=== PATIENT | male | born 1950 | race Caucasian/White ===

== ENCOUNTER 2018-11-27 11:00 | Outpatient (RCR) | payer MEDICARE, OTHER, SELFPAY ==
--- NOTE | 2018-07-14 16:00 | PT.OIE ---
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) Provider Visit Care Team Role Provider Type Morena Burnham MD Primary Care Provider Non-Staff Specialty: Medical Address: [facility] [place], [address] Email: Rigo Chavez MD Attending Provider Non-Staff Specialty: Neurology Address: [address] [place], [address] Email: Physical Therapy Initial Evaluation PT-OP-A Visit Information Start: 07/14/18 12:41 Freq: Status: Active Protocol: Document 07/14/18 09:30 AMB (Rec: 07/18/18 07:18 AMB [email or web address]) Out-Patient Physical Therapy Visit Information Visit Information Visit Type Initial Evaluation Visit Start Time 09:30 Visit Stop Time 10:15 Total Visit Minutes 45 PT-OP-B Current Condition Start: 07/14/18 12:41 Freq: Status: Active Protocol: Document 07/14/18 09:30 AMB (Rec: 07/19/18 07:26 AMB [email or web address]) Current Condition History of Current Condition Onset Date May 2018 Current Complaints Difficulty with gait and balance secondary to Parkinson 's disease History of Current Condition Aster was recently diagnosed with Parkinson's disease, but has noticed some symptoms for years beginning in 2009. He had a good improvement of symptoms with new medication. He is hoping to continue his active lifestyle, but has noticed that he can feel unsteady especially with backing up and turning, and that his left foot tends to drag, especially when he is walking longer distances. He denies any recent falls. Treatment Goals Patient/Caregiver Goals Improve balance/ walking Prior Functional Status Baseline Function- ADL's Independent Baseline Function- Mobility Independent Current Functional Impairments (Reported) Functional Limitations- ADL's Tremor is worse L>R, can limit fine motor activity Functional Limitations- Mobility/Gait Pt notes left leg drags, off balance with turning Personal Factors Other Personal Factors That May Effect Neck and back pain Therapy/Recovery PT-OP-D Balance Start: 07/14/18 12:41 Freq: Status: Active Protocol: Document 07/14/18 09:30 AMB (Rec: 07/19/18 07:39 AMB [email or web address]) Balance Tests Romberg Romberg 30 seconds eyes open, unable eyes closed Single Limb Standing Single Limb- Right 1-2 seconds Single Limb- Left 1 second PT-OP-E Functional Tests Start: 07/14/18 12:41 Freq: Status: Active Protocol: Document 07/14/18 09:30 AMB (Rec: 07/19/18 07:36 AMB [email or web address]) Functional Tests Dynamic Gait Index (DGI) Score 15 DGI Impairment Rating 20 to <40% Impaired (Score 15- 19) PT-OP-G Mobility & Gait Start: 07/14/18 12:41 Freq: Status: Active Protocol: Document 07/14/18 09:30 AMB (Rec: 07/19/18 07:36 AMB [email or web address]) OP Gait Assessment Comments Gait Comments Pt ambulates with reduced arm swing on the left. No scuffing of left foot seen in the clinic with short walks. Reduced head rotation when asked for horizontal head turns. PT-OP-H Neuro Start: 07/14/18 12:41 Freq: Status: Active Protocol: Document 07/14/18 09:30 AMB (Rec: 07/19/18 07:36 AMB [email or web address]) Coordination Evaluation Upper Extremity Tests Left Pronation/Supination Test Minimal Impairment PT-OP-J Posture/Palpation/Skin Start: 07/14/18 12:41 Freq: Status: Active Protocol: Document 07/14/18 09:30 AMB (Rec: 07/19/18 07:36 AMB [email or web address]) Posture Evaluation Comments Posture Comments Slightly forward head, rounded shoulders PT-OP-K Range of Motion Start: 07/14/18 12:41 Freq: Status: Active Protocol: Document 07/14/18 09:30 AMB (Rec: 07/19/18 07:36 AMB [email or web address]) Cervical Spine Range of Motion Cervical Spine Active Degrees Testing Position Sitting Rotation Left 60 Rotation Right 60 Shoulder Goniometric Range of Motion Shoulder Measured in Degrees Right Active Flexion 150 Left Active Flexion 150 PT-OP-M Strength Start: 07/14/18 12:41 Freq: Status: Active Protocol: Document 07/14/18 09:30 AMB (Rec: 07/19/18 07:41 AMB [email or web address]) Hip Strength Hip Manual Muscle Testing Right Flexion (L2) 5 Normal Abduction 5 Normal Left Flexion (L2) 5 Normal Abduction 5 Normal Knee Strength Knee Manual Muscle Testing Right Flexion (S2) 5 Normal Extension (L3) 5 Normal Left Flexion (S2) 5 Normal Extension (L3) 5 Normal Ankle/Foot Strength Ankle and Foot Manual Muscle Testing Right Dorsiflexion (L4) 4+ Good+ Left Dorsiflexion (L4) 4+ Good+ PT-OP-T Assessment and Plan Start: 07/14/18 12:41 Freq: Status: Active Protocol: Document 07/14/18 09:30 AMB (Rec: 07/19/18 08:07 AMB [email or web address]) Physical Therapy Assessment Rehab Potential Rehabilitation Potential Good Evaluation Complexity Number of Personal Factors/Comorbidities 1-2 Number of Body Systems Impaired 1-2 Clinical Presentation at Evaluation Stable Impairments Impairments Balance Gait Goals Two Impairment Gait Short Term Goal (STG) Aster will improve his DGI score to 20/24 to show decreased risk of falling. STG Duration 3 weeks Skip Pitman Goal (LTG) Aster will improve his gait so that he can walk with head turns without loss of balance or veering. LTG Duration 6 weeks One Impairment Balance Short Term Goal (STG) Aster will improve his single leg stance, so that he can balance one for 5 seconds with eyes open. STG Duration 4 weeks Prison Goal (LTG) Aster will make a sharp turn while walking without loss of balance. LTG Duration 6 weeks Assessment Summary Assessment Aster attends physical therapy motivated to improve his gait and balance considering a recent Parkinson's diagnosis. He is interested in the [employer] program, but has a lot of trips planned this summer, so that may not work at the moment. If he does do the [employer] program we would need to do a new plan of care. He presents with a fairly low DGI score, indicating slightly increased risk of falling. His static balance is also impaired for his gender/age range. He will benefit from physical therapy to instruct him in a home program and to progress both his dynamic and static balance. Physical Therapy Plan Frequency and Duration Frequency of Treatment 2x/Week Duration of Treatment 6 weeks Plan of Care Start Date 07/19/18 Plan of Care End Date 08/30/18 Therapeutic Interventions Therapeutic Interventions Balance Training Gait Training Home Exercise Program Manual Therapy Neuromuscular Re-education Self-Care/Home Management Therapeutic Activities Therapeutic Exercises Next Visit Focus/Plan Next Note Type Treatment Note Next Visit Plan Progress gait and balance, work into head turns
--- NOTE | 2018-07-14 16:00 | PT.OPPOC ---
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) Provider Visit Care Team Role Provider Type Morena Burnham MD Primary Care Provider Non-Staff Specialty: Medical Address: [facility] [place], [address] Email: Rigo Chavez MD Attending Provider Non-Staff Specialty: Neurology Address: [address] [place], [address] Email: Plan Of Care PT-OP-T Assessment and Plan Start: 07/14/18 12:41 Freq: Status: Active Protocol: Document 07/14/18 09:30 AMB (Rec: 07/19/18 08:07 AMB [email or web address]) Physical Therapy Assessment Rehab Potential Rehabilitation Potential Good Evaluation Complexity Number of Personal Factors/Comorbidities 1-2 Number of Body Systems Impaired 1-2 Clinical Presentation at Evaluation Stable Impairments Impairments Balance Gait Goals Two Impairment Gait Short Term Goal (STG) Aster will improve his DGI score to 20/24 to show decreased risk of falling. STG Duration 3 weeks Longterm Goal (LTG) Aster will improve his gait so that he can walk with head turns without loss of balance or veering. LTG Duration 6 weeks One Impairment Balance Short Term Goal (STG) Aster will improve his single leg stance, so that he can balance one for 5 seconds with eyes open. STG Duration 4 weeks Restrooms Or Lounges Maid Goal (LTG) Aster will make a sharp turn while walking without loss of balance. LTG Duration 6 weeks Assessment Summary Assessment Aster attends physical therapy motivated to improve his gait and balance considering a recent Parkinson's diagnosis. He is interested in the [employer] program, but has a lot of trips planned this summer, so that may not work at the moment. If he does do the [employer] [facility] program we would need to do a new plan of care. He presents with a fairly low DGI score, indicating slightly increased risk of falling. His static balance is also impaired for his gender/age range. He will benefit from physical therapy to instruct him in a home program and to progress both his dynamic and static balance. Physical Therapy Plan Frequency and Duration Frequency of Treatment 2x/Week Duration of Treatment 6 weeks Plan of Care Start Date 07/19/18 Plan of Care End Date 08/30/18 Therapeutic Interventions Therapeutic Interventions Balance Training Gait Training Home Exercise Program Manual Therapy Neuromuscular Re-education Self-Care/Home Management Therapeutic Activities Therapeutic Exercises Next Visit Focus/Plan Next Note Type Treatment Note Next Visit Plan Progress gait and balance, work into head turns Plan of Care Dates Plan of Care Start Date 07/19/18 Plan of Care End Date 08/30/18 Please Sign and Return: I have reviewed this Plan of Care and certify that the skilled therapy services above are required to meet the patient?s needs. Physician Signature Date Printed Name and Credentials Clinical Instructor Signature Printed Name and Credentials
--- NOTE | 2018-07-21 08:10 | PT.OTN ---
Current Diagnoses Parkinson's disease (07/20/18) Ataxia, unspecified (07/20/18) Physical Therapy Treatment Note PT-OP-A Visit Information Start: 07/14/18 12:41 Freq: Status: Active Protocol: Document 07/20/18 07:30 AMB (Rec: 07/21/18 08:10 AMB [email or web address]) Out-Patient Physical Therapy Visit Information Visit Information Visit Type Treatment Note Visit Start Time 07:30 Visit Stop Time 08:15 Total Visit Minutes 45 Visit Number 2 PT-OP-B Current Condition Start: 07/14/18 12:41 Freq: Status: Active Protocol: Document 07/14/18 09:30 AMB (Rec: 07/19/18 07:26 AMB [email or web address]) Current Condition History of Current Condition Onset Date May 2018 Current Complaints Difficulty with gait and balance secondary to Parkinson 's disease History of Current Condition Aster was recently diagnosed with Parkinson's disease, but has noticed some symptoms for years beginning in 2009. He had a good improvement of symptoms with new medication. He is hoping to continue his active lifestyle, but has noticed that he can feel unsteady especially with backing up and turning, and that his left foot tends to drag, especially when he is walking longer distances. He denies any recent falls. Treatment Goals Patient/Caregiver Goals Improve balance/ walking Prior Functional Status Baseline Function- ADL's Independent Baseline Function- Mobility Independent Current Functional Impairments (Reported) Functional Limitations- ADL's Tremor is worse L>R, can limit fine motor activity Functional Limitations- Mobility/Gait Pt notes left leg drags, off balance with turning Personal Factors Other Personal Factors That May Effect Neck and back pain Therapy/Recovery PT-OP-C Subjective Start: 07/14/18 12:41 Freq: Status: Active Protocol: Document 07/20/18 07:30 AMB (Rec: 07/21/18 08:10 AMB [email or web address]) OP-PT Subjective Patient Comments Patient Comments Pt attends PT with his today. PT-OP-D Balance Start: 07/14/18 12:41 Freq: Status: Active Protocol: Document 07/14/18 09:30 AMB (Rec: 07/19/18 07:39 AMB [email or web address]) Balance Tests Romberg Romberg 30 seconds eyes open, unable eyes closed Single Limb Standing Single Limb- Right 1-2 seconds Single Limb- Left 1 second PT-OP-E Functional Tests Start: 07/14/18 12:41 Freq: Status: Active Protocol: Document 07/14/18 09:30 AMB (Rec: 07/19/18 07:36 AMB [email or web address]) Functional Tests Dynamic Gait Index (DGI) Score 15 DGI Impairment Rating 20 to <40% Impaired (Score 15- 19) PT-OP-G Mobility & Gait Start: 07/14/18 12:41 Freq: Status: Active Protocol: Document 07/14/18 09:30 AMB (Rec: 07/19/18 07:36 AMB [email or web address]) OP Gait Assessment Comments Gait Comments Pt ambulates with reduced arm swing on the left. No scuffing of left foot seen in the clinic with short walks. Reduced head rotation when asked for horizontal head turns. PT-OP-H Neuro Start: 07/14/18 12:41 Freq: Status: Active Protocol: Document 07/14/18 09:30 AMB (Rec: 07/19/18 07:36 AMB [email or web address]) Coordination Evaluation Upper Extremity Tests Left Pronation/Supination Test Minimal Impairment PT-OP-J Posture/Palpation/Skin Start: 07/14/18 12:41 Freq: Status: Active Protocol: Document 07/14/18 09:30 AMB (Rec: 07/19/18 07:36 AMB [email or web address]) Posture Evaluation Comments Posture Comments Slightly forward head, rounded shoulders PT-OP-K Range of Motion Start: 07/14/18 12:41 Freq: Status: Active Protocol: Document 07/14/18 09:30 AMB (Rec: 07/19/18 07:36 AMB [email or web address]) Cervical Spine Range of Motion Cervical Spine Active Degrees Testing Position Sitting Rotation Left 60 Rotation Right 60 Shoulder Goniometric Range of Motion Shoulder Measured in Degrees Right Active Flexion 150 Left Active Flexion 150 PT-OP-M Strength Start: 07/14/18 12:41 Freq: Status: Active Protocol: Document 07/14/18 09:30 AMB (Rec: 07/19/18 07:41 AMB [email or web address]) Hip Strength Hip Manual Muscle Testing Right Flexion (L2) 5 Normal Abduction 5 Normal Left Flexion (L2) 5 Normal Abduction 5 Normal Knee Strength Knee Manual Muscle Testing Right Flexion (S2) 5 Normal Extension (L3) 5 Normal Left Flexion (S2) 5 Normal Extension (L3) 5 Normal Ankle/Foot Strength Ankle and Foot Manual Muscle Testing Right Dorsiflexion (L4) 4+ Good+ Left Dorsiflexion (L4) 4+ Good+ PT-OP-Q Treatments Start: 07/14/18 12:41 Freq: Status: Active Protocol: Document 07/20/18 07:30 AMB (Rec: 07/21/18 08:10 AMB [email or web address]) Therapeutic Exercises Supine Exercises 3 Supine Exercise Name hip flexor stretch Reps/Minutes 30x2 2 Supine Exercise Name hamstring stretch Reps/Minutes 30x2 1 Supine Exercise Name LTR Reps/Minutes 20 Comments hooklying Standing Exercises 2 Standing Exercise Name slow march to extend SLS time Reps/Minutes 2x10 1 Standing Exercise Name pec stretch Reps/Minutes 30x2 Gait Training Gait Activity 1 Description forward/backward stepping Comments with and without head turns Neuro Re-Education Treatment Balance Activities 2 Details a/p and m/l weight shift with arm swing Reps/Duration 10 1 Details backward stepping with arm swing Reps/Duration 10 PT-OP-T Assessment and Plan Start: 07/14/18 12:41 Freq: Status: Active Protocol: Document 07/20/18 07:30 AMB (Rec: 07/21/18 08:10 AMB [email or web address]) Physical Therapy Assessment Assessment Summary Assessment Aster did well with exercises, but walking with head turns remains difficult, as well as single leg stance. Gave backward stepping, and weightshifting with arm swing as HEP. Physical Therapy Plan Next Visit Focus/Plan Next Note Type Treatment Note Next Visit Plan Progress gait and balance, work into head turns
--- NOTE | 2018-07-26 16:04 | PT.OTN ---
Current Diagnoses Parkinson's disease (07/26/18) Ataxia, unspecified (07/26/18) Physical Therapy Treatment Note PT-OP-A Visit Information Start: 07/14/18 12:41 Freq: Status: Active Protocol: Document 07/26/18 08:45 AMB (Rec: 07/26/18 09:30 AMB [id number]) Out-Patient Physical Therapy Visit Information Visit Information Visit Type Treatment Note Visit Start Time 08:45 Visit Stop Time 09:30 Total Visit Minutes 45 Visit Number 3 PT-OP-B Current Condition Start: 07/14/18 12:41 Freq: Status: Active Protocol: Document 07/14/18 09:30 AMB (Rec: 07/19/18 07:26 AMB [email or web address]) Current Condition History of Current Condition Onset Date May 2018 Current Complaints Difficulty with gait and balance secondary to Parkinson 's disease History of Current Condition Aster was recently diagnosed with Parkinson's disease, but has noticed some symptoms for years beginning in 2009. He had a good improvement of symptoms with new medication. He is hoping to continue his active lifestyle, but has noticed that he can feel unsteady especially with backing up and turning, and that his left foot tends to drag, especially when he is walking longer distances. He denies any recent falls. Treatment Goals Patient/Caregiver Goals Improve balance/ walking Prior Functional Status Baseline Function- ADL's Independent Baseline Function- Mobility Independent Current Functional Impairments (Reported) Functional Limitations- ADL's Tremor is worse L>R, can limit fine motor activity Functional Limitations- Mobility/Gait Pt notes left leg drags, off balance with turning Personal Factors Other Personal Factors That May Effect Neck and back pain Therapy/Recovery PT-OP-C Subjective Start: 07/14/18 12:41 Freq: Status: Active Protocol: Document 07/26/18 08:45 AMB (Rec: 07/26/18 09:30 AMB [id number]) OP-PT Subjective Patient Comments Patient Comments Pt states he has been doing his HEP and that it is going well. PT-OP-D Balance Start: 07/14/18 12:41 Freq: Status: Active Protocol: Document 07/14/18 09:30 AMB (Rec: 07/19/18 07:39 AMB [email or web address]) Balance Tests Romberg Romberg 30 seconds eyes open, unable eyes closed Single Limb Standing Single Limb- Right 1-2 seconds Single Limb- Left 1 second PT-OP-E Functional Tests Start: 07/14/18 12:41 Freq: Status: Active Protocol: Document 07/14/18 09:30 AMB (Rec: 07/19/18 07:36 AMB [email or web address]) Functional Tests Dynamic Gait Index (DGI) Score 15 DGI Impairment Rating 20 to <40% Impaired (Score 15- 19) PT-OP-G Mobility & Gait Start: 07/14/18 12:41 Freq: Status: Active Protocol: Document 07/14/18 09:30 AMB (Rec: 07/19/18 07:36 AMB [email or web address]) OP Gait Assessment Comments Gait Comments Pt ambulates with reduced arm swing on the left. No scuffing of left foot seen in the clinic with short walks. Reduced head rotation when asked for horizontal head turns. PT-OP-H Neuro Start: 07/14/18 12:41 Freq: Status: Active Protocol: Document 07/14/18 09:30 AMB (Rec: 07/19/18 07:36 AMB [email or web address]) Coordination Evaluation Upper Extremity Tests Left Pronation/Supination Test Minimal Impairment PT-OP-J Posture/Palpation/Skin Start: 07/14/18 12:41 Freq: Status: Active Protocol: Document 07/14/18 09:30 AMB (Rec: 07/19/18 07:36 AMB [email or web address]) Posture Evaluation Comments Posture Comments Slightly forward head, rounded shoulders PT-OP-K Range of Motion Start: 07/14/18 12:41 Freq: Status: Active Protocol: Document 07/14/18 09:30 AMB (Rec: 07/19/18 07:36 AMB [email or web address]) Cervical Spine Range of Motion Cervical Spine Active Degrees Testing Position Sitting Rotation Left 60 Rotation Right 60 Shoulder Goniometric Range of Motion Shoulder Measured in Degrees Right Active Flexion 150 Left Active Flexion 150 PT-OP-M Strength Start: 07/14/18 12:41 Freq: Status: Active Protocol: Document 07/14/18 09:30 AMB (Rec: 07/19/18 07:41 AMB [email or web address]) Hip Strength Hip Manual Muscle Testing Right Flexion (L2) 5 Normal Abduction 5 Normal Left Flexion (L2) 5 Normal Abduction 5 Normal Knee Strength Knee Manual Muscle Testing Right Flexion (S2) 5 Normal Extension (L3) 5 Normal Left Flexion (S2) 5 Normal Extension (L3) 5 Normal Ankle/Foot Strength Ankle and Foot Manual Muscle Testing Right Dorsiflexion (L4) 4+ Good+ Left Dorsiflexion (L4) 4+ Good+ PT-OP-Q Treatments Start: 07/14/18 12:41 Freq: Status: Active Protocol: Document 07/26/18 08:45 AMB (Rec: 07/26/18 16:04 AMB [email or web address]) Therapeutic Exercises Supine Exercises 3 Supine Exercise Name hip flexor stretch Reps/Minutes 30x2 2 Supine Exercise Name hamstring stretch Reps/Minutes 30x2 Standing Exercises 3 Standing Exercise Name calf stretch Reps/Minutes 30x2 1 Standing Exercise Name pec stretch Reps/Minutes 30x2 Gait Training Gait Activity 2 Description walking with dual tasking Comments smooth surface, less arm swing on the left 1 Description forward/backward stepping Comments with and without head turns Neuro Re-Education Treatment Balance Activities 2 Details a/p and m/l weight shift with arm swing Reps/Duration 10 1 Details backward/forward/side stepping with arm swing Reps/Duration 10 PT-OP-T Assessment and Plan Start: 07/14/18 12:41 Freq: Status: Active Protocol: Document 07/26/18 08:45 AMB (Rec: 07/26/18 09:32 AMB [id number]) Physical Therapy Assessment Assessment Summary Assessment Aster is doing well, although head turn activities remain challenging. Physical Therapy Plan Next Visit Focus/Plan Next Note Type Treatment Note Next Visit Plan Progress dynamic balance, gait with dual tasking, uneven surfaces
--- NOTE | 2018-07-28 08:43 | PT.OTN ---
Current Diagnoses Parkinson's disease (07/28/18) Ataxia, unspecified (07/28/18) Physical Therapy Treatment Note PT-OP-A Visit Information Start: 07/14/18 12:41 Freq: Status: Active Protocol: Document 07/28/18 08:00 AMB (Rec: 07/28/18 08:35 AMB [email or web address]) Out-Patient Physical Therapy Visit Information Visit Information Visit Type Treatment Note Visit Start Time 08:00 Visit Stop Time 08:45 Total Visit Minutes 45 Visit Number 4 PT-OP-B Current Condition Start: 07/14/18 12:41 Freq: Status: Active Protocol: Document 07/14/18 09:30 AMB (Rec: 07/19/18 07:26 AMB [email or web address]) Current Condition History of Current Condition Onset Date May 2018 Current Complaints Difficulty with gait and balance secondary to Parkinson 's disease History of Current Condition Aster was recently diagnosed with Parkinson's disease, but has noticed some symptoms for years beginning in 2009. He had a good improvement of symptoms with new medication. He is hoping to continue his active lifestyle, but has noticed that he can feel unsteady especially with backing up and turning, and that his left foot tends to drag, especially when he is walking longer distances. He denies any recent falls. Treatment Goals Patient/Caregiver Goals Improve balance/ walking Prior Functional Status Baseline Function- ADL's Independent Baseline Function- Mobility Independent Current Functional Impairments (Reported) Functional Limitations- ADL's Tremor is worse L>R, can limit fine motor activity Functional Limitations- Mobility/Gait Pt notes left leg drags, off balance with turning Personal Factors Other Personal Factors That May Effect Neck and back pain Therapy/Recovery PT-OP-C Subjective Start: 07/14/18 12:41 Freq: Status: Active Protocol: Document 07/28/18 08:00 AMB (Rec: 07/28/18 08:43 AMB [email or web address]) OP-PT Subjective Patient Comments Patient Comments Pt is doing well, when asked about fine motor practice, 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 PT-OP-D Balance Start: 07/14/18 12:41 Freq: Status: Active Protocol: Document 07/14/18 09:30 AMB (Rec: 07/19/18 07:39 AMB [email or web address]) Balance Tests Romberg Romberg 30 seconds eyes open, unable eyes closed Single Limb Standing Single Limb- Right 1-2 seconds Single Limb- Left 1 second PT-OP-E Functional Tests Start: 07/14/18 12:41 Freq: Status: Active Protocol: Document 07/14/18 09:30 AMB (Rec: 07/19/18 07:36 AMB [email or web address]) Functional Tests Dynamic Gait Index (DGI) Score 15 DGI Impairment Rating 20 to <40% Impaired (Score 15- 19) PT-OP-G Mobility & Gait Start: 07/14/18 12:41 Freq: Status: Active Protocol: Document 07/14/18 09:30 AMB (Rec: 07/19/18 07:36 AMB [email or web address]) OP Gait Assessment Comments Gait Comments Pt ambulates with reduced arm swing on the left. No scuffing of left foot seen in the clinic with short walks. Reduced head rotation when asked for horizontal head turns. PT-OP-H Neuro Start: 07/14/18 12:41 Freq: Status: Active Protocol: Document 07/14/18 09:30 AMB (Rec: 07/19/18 07:36 AMB [email or web address]) Coordination Evaluation Upper Extremity Tests Left Pronation/Supination Test Minimal Impairment PT-OP-J Posture/Palpation/Skin Start: 07/14/18 12:41 Freq: Status: Active Protocol: Document 07/14/18 09:30 AMB (Rec: 07/19/18 07:36 AMB [email or web address]) Posture Evaluation Comments Posture Comments Slightly forward head, rounded shoulders PT-OP-K Range of Motion Start: 07/14/18 12:41 Freq: Status: Active Protocol: Document 07/14/18 09:30 AMB (Rec: 07/19/18 07:36 AMB [email or web address]) Cervical Spine Range of Motion Cervical Spine Active Degrees Testing Position Sitting Rotation Left 60 Rotation Right 60 Shoulder Goniometric Range of Motion Shoulder Measured in Degrees Right Active Flexion 150 Left Active Flexion 150 PT-OP-M Strength Start: 07/14/18 12:41 Freq: Status: Active Protocol: Document 07/14/18 09:30 AMB (Rec: 07/19/18 07:41 AMB [email or web address]) Hip Strength Hip Manual Muscle Testing Right Flexion (L2) 5 Normal Abduction 5 Normal Left Flexion (L2) 5 Normal Abduction 5 Normal Knee Strength Knee Manual Muscle Testing Right Flexion (S2) 5 Normal Extension (L3) 5 Normal Left Flexion (S2) 5 Normal Extension (L3) 5 Normal Ankle/Foot Strength Ankle and Foot Manual Muscle Testing Right Dorsiflexion (L4) 4+ Good+ Left Dorsiflexion (L4) 4+ Good+ PT-OP-Q Treatments Start: 07/14/18 12:41 Freq: Status: Active Protocol: Document 07/28/18 08:00 AMB (Rec: 07/28/18 08:43 AMB [email or web address]) Gym Equipment Shuttle Balance 1 Details RED/BLUE Comments HT with BLUE in stride stance. WBOS with red. Gait Training Gait Activity 1 Description forward/backward stepping Comments with and without head turns Neuro Re-Education Treatment Balance Activities 3 Details sit and reach forward and lateral Reps/Duration 5 ea 2 Details a/p and m/l weight shift with arm swing Reps/Duration 10 1 Details backward/forward/side stepping with arm swing Reps/Duration 10 PT-OP-T Assessment and Plan Start: 07/14/18 12:41 Freq: Status: Active Protocol: Document 07/28/18 08:00 AMB (Rec: 07/28/18 08:43 AMB [email or web address]) Physical Therapy Assessment Assessment Summary Assessment Aster had difficulty with shuttle balance, but home exercises are going well. Physical Therapy Plan Next Visit Focus/Plan Next Note Type Treatment Note Next Visit Plan Progress dynamic balance, gait with dual tasking, uneven surfaces
--- NOTE | 2018-07-31 16:34 | PT.OTN ---
Current Diagnoses Parkinson's disease (07/31/18) Ataxia, unspecified (07/31/18) Physical Therapy Treatment Note PT-OP-A Visit Information Start: 07/14/18 12:41 Freq: Status: Active Protocol: Document 07/31/18 14:30 AMB (Rec: 07/31/18 16:34 AMB [email or web address]) Out-Patient Physical Therapy Visit Information Visit Information Visit Type Treatment Note Visit Start Time 14:30 Visit Stop Time 15:15 Total Visit Minutes 45 Visit Number 5 PT-OP-B Current Condition Start: 07/14/18 12:41 Freq: Status: Active Protocol: Document 07/14/18 09:30 AMB (Rec: 07/19/18 07:26 AMB [email or web address]) Current Condition History of Current Condition Onset Date May 2018 Current Complaints Difficulty with gait and balance secondary to Parkinson 's disease History of Current Condition Aster was recently diagnosed with Parkinson's disease, but has noticed some symptoms for years beginning in 2009. He had a good improvement of symptoms with new medication. He is hoping to continue his active lifestyle, but has noticed that he can feel unsteady especially with backing up and turning, and that his left foot tends to drag, especially when he is walking longer distances. He denies any recent falls. Treatment Goals Patient/Caregiver Goals Improve balance/ walking Prior Functional Status Baseline Function- ADL's Independent Baseline Function- Mobility Independent Current Functional Impairments (Reported) Functional Limitations- ADL's Tremor is worse L>R, can limit fine motor activity Functional Limitations- Mobility/Gait Pt notes left leg drags, off balance with turning Personal Factors Other Personal Factors That May Effect Neck and back pain Therapy/Recovery PT-OP-C Subjective Start: 07/14/18 12:41 Freq: Status: Active Protocol: Document 07/31/18 14:30 AMB (Rec: 07/31/18 16:34 AMB [email or web address]) OP-PT Subjective Patient Comments Patient Comments Pt is doing exercises 1x/day. PT-OP-D Balance Start: 07/14/18 12:41 Freq: Status: Active Protocol: Document 07/14/18 09:30 AMB (Rec: 07/19/18 07:39 AMB [email or web address]) Balance Tests Romberg Romberg 30 seconds eyes open, unable eyes closed Single Limb Standing Single Limb- Right 1-2 seconds Single Limb- Left 1 second PT-OP-E Functional Tests Start: 07/14/18 12:41 Freq: Status: Active Protocol: Document 07/14/18 09:30 AMB (Rec: 07/19/18 07:36 AMB [email or web address]) Functional Tests Dynamic Gait Index (DGI) Score 15 DGI Impairment Rating 20 to <40% Impaired (Score 15- 19) PT-OP-G Mobility & Gait Start: 07/14/18 12:41 Freq: Status: Active Protocol: Document 07/14/18 09:30 AMB (Rec: 07/19/18 07:36 AMB [email or web address]) OP Gait Assessment Comments Gait Comments Pt ambulates with reduced arm swing on the left. No scuffing of left foot seen in the clinic with short walks. Reduced head rotation when asked for horizontal head turns. PT-OP-H Neuro Start: 07/14/18 12:41 Freq: Status: Active Protocol: Document 07/14/18 09:30 AMB (Rec: 07/19/18 07:36 AMB [email or web address]) Coordination Evaluation Upper Extremity Tests Left Pronation/Supination Test Minimal Impairment PT-OP-J Posture/Palpation/Skin Start: 07/14/18 12:41 Freq: Status: Active Protocol: Document 07/14/18 09:30 AMB (Rec: 07/19/18 07:36 AMB [email or web address]) Posture Evaluation Comments Posture Comments Slightly forward head, rounded shoulders PT-OP-K Range of Motion Start: 07/14/18 12:41 Freq: Status: Active Protocol: Document 07/14/18 09:30 AMB (Rec: 07/19/18 07:36 AMB [email or web address]) Cervical Spine Range of Motion Cervical Spine Active Degrees Testing Position Sitting Rotation Left 60 Rotation Right 60 Shoulder Goniometric Range of Motion Shoulder Measured in Degrees Right Active Flexion 150 Left Active Flexion 150 PT-OP-M Strength Start: 07/14/18 12:41 Freq: Status: Active Protocol: Document 07/14/18 09:30 AMB (Rec: 07/19/18 07:41 AMB [email or web address]) Hip Strength Hip Manual Muscle Testing Right Flexion (L2) 5 Normal Abduction 5 Normal Left Flexion (L2) 5 Normal Abduction 5 Normal Knee Strength Knee Manual Muscle Testing Right Flexion (S2) 5 Normal Extension (L3) 5 Normal Left Flexion (S2) 5 Normal Extension (L3) 5 Normal Ankle/Foot Strength Ankle and Foot Manual Muscle Testing Right Dorsiflexion (L4) 4+ Good+ Left Dorsiflexion (L4) 4+ Good+ PT-OP-Q Treatments Start: 07/14/18 12:41 Freq: Status: Active Protocol: Document 07/31/18 14:30 AMB (Rec: 07/31/18 16:34 AMB [email or web address]) Therapeutic Exercises Standing Exercises 6 Standing Exercise Name DoYouBuzz Equipment Used teal t band Comments 2x12 5 Standing Exercise Name lunges- lateral Reps/Minutes 10 4 Standing Exercise Name lunges-forward Reps/Minutes 10 1 Standing Exercise Name pec stretch Reps/Minutes 30x2 Gait Training Gait Activity 3 Description walking outdoors Comments grass, curbs, 2 flights of stairs 1 Description forward/backward stepping Comments with and without head turns Neuro Re-Education Treatment Other Activities 2 Details bosu ball Comments double leg EO 1 Details stride stance blue foam Comments EC/ HT PT-OP-T Assessment and Plan Start: 07/14/18 12:41 Freq: Status: Active Protocol: Document 07/31/18 14:30 AMB (Rec: 07/31/18 16:34 AMB [email or web address]) Physical Therapy Assessment Assessment Summary Assessment Aster tolerate bosu ball and foam balance better than shuttle balance but continues to have difficulty with head turns. Physical Therapy Plan Next Visit Focus/Plan Next Note Type Treatment Note Next Visit Plan Progress dynamic balance, gait with dual tasking, uneven surfaces
--- NOTE | 2018-08-02 15:40 | PT.OTN ---
Current Diagnoses Parkinson's disease (08/02/18) Ataxia, unspecified (08/02/18) Physical Therapy Treatment Note PT-OP-A Visit Information Start: 07/14/18 12:41 Freq: Status: Active Protocol: Document 08/02/18 10:30 AMB (Rec: 08/02/18 15:40 AMB [email or web address]) Out-Patient Physical Therapy Visit Information Visit Information Visit Type Treatment Note Visit Start Time 10:30 Visit Stop Time 11:15 Total Visit Minutes 45 Visit Number 6 PT-OP-B Current Condition Start: 07/14/18 12:41 Freq: Status: Active Protocol: Document 07/14/18 09:30 AMB (Rec: 07/19/18 07:26 AMB [email or web address]) Current Condition History of Current Condition Onset Date May 2018 Current Complaints Difficulty with gait and balance secondary to Parkinson 's disease History of Current Condition Aster was recently diagnosed with Parkinson's disease, but has noticed some symptoms for years beginning in 2009. He had a good improvement of symptoms with new medication. He is hoping to continue his active lifestyle, but has noticed that he can feel unsteady especially with backing up and turning, and that his left foot tends to drag, especially when he is walking longer distances. He denies any recent falls. Treatment Goals Patient/Caregiver Goals Improve balance/ walking Prior Functional Status Baseline Function- ADL's Independent Baseline Function- Mobility Independent Current Functional Impairments (Reported) Functional Limitations- ADL's Tremor is worse L>R, can limit fine motor activity Functional Limitations- Mobility/Gait Pt notes left leg drags, off balance with turning Personal Factors Other Personal Factors That May Effect Neck and back pain Therapy/Recovery PT-OP-C Subjective Start: 07/14/18 12:41 Freq: Status: Active Protocol: Document 08/02/18 10:30 AMB (Rec: 08/02/18 15:40 AMB [email or web address]) OP-PT Subjective Patient Comments Patient Comments Pt going to [place] between now and next visit. PT-OP-D Balance Start: 07/14/18 12:41 Freq: Status: Active Protocol: Document 07/14/18 09:30 AMB (Rec: 07/19/18 07:39 AMB [email or web address]) Balance Tests Romberg Romberg 30 seconds eyes open, unable eyes closed Single Limb Standing Single Limb- Right 1-2 seconds Single Limb- Left 1 second PT-OP-E Functional Tests Start: 07/14/18 12:41 Freq: Status: Active Protocol: Document 07/14/18 09:30 AMB (Rec: 07/19/18 07:36 AMB [email or web address]) Functional Tests Dynamic Gait Index (DGI) Score 15 DGI Impairment Rating 20 to <40% Impaired (Score 15- 19) PT-OP-G Mobility & Gait Start: 07/14/18 12:41 Freq: Status: Active Protocol: Document 07/14/18 09:30 AMB (Rec: 07/19/18 07:36 AMB [email or web address]) OP Gait Assessment Comments Gait Comments Pt ambulates with reduced arm swing on the left. No scuffing of left foot seen in the clinic with short walks. Reduced head rotation when asked for horizontal head turns. PT-OP-H Neuro Start: 07/14/18 12:41 Freq: Status: Active Protocol: Document 07/14/18 09:30 AMB (Rec: 07/19/18 07:36 AMB [email or web address]) Coordination Evaluation Upper Extremity Tests Left Pronation/Supination Test Minimal Impairment PT-OP-J Posture/Palpation/Skin Start: 07/14/18 12:41 Freq: Status: Active Protocol: Document 07/14/18 09:30 AMB (Rec: 07/19/18 07:36 AMB [email or web address]) Posture Evaluation Comments Posture Comments Slightly forward head, rounded shoulders PT-OP-K Range of Motion Start: 07/14/18 12:41 Freq: Status: Active Protocol: Document 07/14/18 09:30 AMB (Rec: 07/19/18 07:36 AMB [email or web address]) Cervical Spine Range of Motion Cervical Spine Active Degrees Testing Position Sitting Rotation Left 60 Rotation Right 60 Shoulder Goniometric Range of Motion Shoulder Measured in Degrees Right Active Flexion 150 Left Active Flexion 150 PT-OP-M Strength Start: 07/14/18 12:41 Freq: Status: Active Protocol: Document 07/14/18 09:30 AMB (Rec: 07/19/18 07:41 AMB [email or web address]) Hip Strength Hip Manual Muscle Testing Right Flexion (L2) 5 Normal Abduction 5 Normal Left Flexion (L2) 5 Normal Abduction 5 Normal Knee Strength Knee Manual Muscle Testing Right Flexion (S2) 5 Normal Extension (L3) 5 Normal Left Flexion (S2) 5 Normal Extension (L3) 5 Normal Ankle/Foot Strength Ankle and Foot Manual Muscle Testing Right Dorsiflexion (L4) 4+ Good+ Left Dorsiflexion (L4) 4+ Good+ PT-OP-Q Treatments Start: 07/14/18 12:41 Freq: Status: Active Protocol: Document 08/02/18 10:30 AMB (Rec: 08/02/18 15:40 AMB [email or web address]) Gym Equipment Therapeutic Ball 1 Exercise Details alt LE/ UE flexion Ball Size/Color 65cm Therapeutic Exercises Standing Exercises 5 Standing Exercise Name lunges- star Reps/Minutes 5 Gait Training Gait Activity 1 Description forward/backward stepping Comments with and without head turns Neuro Re-Education Treatment Balance Activities 5 Details 3 step and single leg stance Comments with and without HT 4 Details balance pods and hurdles Reps/Duration 10' x 4 Other Activities 1 Details stride stance blue foam Comments EC/ HT PT-OP-T Assessment and Plan Start: 07/14/18 12:41 Freq: Status: Active Protocol: Document 08/02/18 10:30 AMB (Rec: 08/02/18 15:40 AMB [email or web address]) Physical Therapy Assessment Assessment Summary Assessment Pt progressing well, although head turns continue to be the most challenging Physical Therapy Plan Next Visit Focus/Plan Next Note Type Treatment Note Next Visit Plan Progress dynamic balance, gait with dual tasking, uneven surfaces
--- NOTE | 2018-09-06 16:00 | PT.OPPOC ---
Current Diagnoses Parkinson's disease (09/06/18) Ataxia, unspecified (09/06/18) Provider Visit Care Team Role Provider Type Morena Burnham MD Primary Care Provider Non-Staff Specialty: Medical Address: [facility] [place], [address] Email: Rigo Chavez MD Attending Provider Non-Staff Specialty: Neurology Address: [address] [place], [address] Email: Plan Of Care PT-OP-T Assessment and Plan Start: 07/14/18 12:41 Freq: Status: Active Protocol: Document 09/06/18 09:45 AMB (Rec: 09/07/18 07:55 AMB [email or web address]) Physical Therapy Assessment Goals Two Impairment Gait Short Term Goal (STG) Aster will improve his DGI score to 20/24 to show decreased risk of falling. STG Duration 3 weeks Retirement Goal (LTG) Aster will improve his gait so that he can walk with head turns without loss of balance or veering. LTG Duration PROGRESS MADE One Impairment Balance Short Term Goal (STG) Aster will improve his single leg stance, so that he can balance on one leg for 5 seconds with eyes open. STG Duration 4 weeks Retirement Goal (LTG) Aster will make a sharp turn while walking without loss of balance. LTG Duration MET Assessment Summary Assessment Aster wants to do the LSVT BIG program, but due to his travel schedule, we will not start that until October. In the interim he will be seen for one more visit to advance his higher level balance challenges. Overall he is very consistent with his HEP and very motivated. Physical Therapy Plan Frequency and Duration Frequency of Treatment 4x/week in October Duration of Treatment 12 weeks Plan of Care Start Date 09/06/18 Plan of Care End Date 11/29/18 Therapeutic Interventions Therapeutic Interventions Balance Training Gait Training Home Exercise Program Manual Therapy Neuromuscular Re-education Self-Care/Home Management Therapeutic Activities Therapeutic Exercises Next Visit Focus/Plan Next Note Type Treatment Note Next Visit Plan continue with higher level balance training and then start LSVT BIG program. Plan of Care Dates Plan of Care Start Date 09/06/18 Plan of Care End Date 10/09/19 Please Sign and Return: I have reviewed this Plan of Care and certify that the skilled therapy services above are required to meet the patient?s needs. Physician Signature Date Printed Name and Credentials Clinical Instructor Signature Printed Name and Credentials
--- NOTE | 2018-09-06 16:00 | PT.OTN ---
Current Diagnoses Parkinson's disease (09/06/18) Ataxia, unspecified (09/06/18) Physical Therapy Treatment Note PT-OP-A Visit Information Start: 07/14/18 12:41 Freq: Status: Active Protocol: Document 09/06/18 09:45 AMB (Rec: 09/06/18 09:51 AMB [email or web address]) Out-Patient Physical Therapy Visit Information Visit Information Visit Type Treatment Note Visit Start Time 09:45 Visit Stop Time 10:30 Total Visit Minutes 45 Visit Number 7 PT-OP-B Current Condition Start: 07/14/18 12:41 Freq: Status: Active Protocol: Document 07/14/18 09:30 AMB (Rec: 07/19/18 07:26 AMB [email or web address]) Current Condition History of Current Condition Onset Date May 2018 Current Complaints Difficulty with gait and balance secondary to Parkinson 's disease History of Current Condition Aster was recently diagnosed with Parkinson's disease, but has noticed some symptoms for years beginning in 2009. He had a good improvement of symptoms with new medication. He is hoping to continue his active lifestyle, but has noticed that he can feel unsteady especially with backing up and turning, and that his left foot tends to drag, especially when he is walking longer distances. He denies any recent falls. Treatment Goals Patient/Caregiver Goals Improve balance/ walking Prior Functional Status Baseline Function- ADL's Independent Baseline Function- Mobility Independent Current Functional Impairments (Reported) Functional Limitations- ADL's Tremor is worse L>R, can limit fine motor activity Functional Limitations- Mobility/Gait Pt notes left leg drags, off balance with turning Personal Factors Other Personal Factors That May Effect Neck and back pain Therapy/Recovery PT-OP-C Subjective Start: 07/14/18 12:41 Freq: Status: Active Protocol: Document 09/06/18 09:45 AMB (Rec: 09/06/18 09:51 AMB [id number]) OP-PT Subjective Patient Comments Patient Comments Pt had a chest cold but overall is feeling better. Going to [place] between this visit and next. PT-OP-D Balance Start: 07/14/18 12:41 Freq: Status: Active Protocol: Document 07/14/18 09:30 AMB (Rec: 07/19/18 07:39 AMB [email or web address]) Balance Tests Romberg Romberg 30 seconds eyes open, unable eyes closed Single Limb Standing Single Limb- Right 1-2 seconds Single Limb- Left 1 second PT-OP-E Functional Tests Start: 07/14/18 12:41 Freq: Status: Active Protocol: Document 07/14/18 09:30 AMB (Rec: 07/19/18 07:36 AMB [email or web address]) Functional Tests Dynamic Gait Index (DGI) Score 15 DGI Impairment Rating 20 to <40% Impaired (Score 15- 19) PT-OP-G Mobility & Gait Start: 07/14/18 12:41 Freq: Status: Active Protocol: Document 07/14/18 09:30 AMB (Rec: 07/19/18 07:36 AMB [email or web address]) OP Gait Assessment Comments Gait Comments Pt ambulates with reduced arm swing on the left. No scuffing of left foot seen in the clinic with short walks. Reduced head rotation when asked for horizontal head turns. PT-OP-H Neuro Start: 07/14/18 12:41 Freq: Status: Active Protocol: Document 07/14/18 09:30 AMB (Rec: 07/19/18 07:36 AMB [email or web address]) Coordination Evaluation Upper Extremity Tests Left Pronation/Supination Test Minimal Impairment PT-OP-J Posture/Palpation/Skin Start: 07/14/18 12:41 Freq: Status: Active Protocol: Document 07/14/18 09:30 AMB (Rec: 07/19/18 07:36 AMB [email or web address]) Posture Evaluation Comments Posture Comments Slightly forward head, rounded shoulders PT-OP-K Range of Motion Start: 07/14/18 12:41 Freq: Status: Active Protocol: Document 07/14/18 09:30 AMB (Rec: 07/19/18 07:36 AMB [email or web address]) Cervical Spine Range of Motion Cervical Spine Active Degrees Testing Position Sitting Rotation Left 60 Rotation Right 60 Shoulder Goniometric Range of Motion Shoulder Right Active Flexion 150 Left Active Flexion 150 PT-OP-M Strength Start: 07/14/18 12:41 Freq: Status: Active Protocol: Document 07/14/18 09:30 AMB (Rec: 07/19/18 07:41 AMB [email or web address]) Hip Strength Hip Manual Muscle Testing Right Flexion (L2) 5 Normal Abduction 5 Normal Left Flexion (L2) 5 Normal Abduction 5 Normal Knee Strength Knee Manual Muscle Testing Right Flexion (S2) 5 Normal Extension (L3) 5 Normal Left Flexion (S2) 5 Normal Extension (L3) 5 Normal Ankle/Foot Strength Ankle and Foot Manual Muscle Testing Right Dorsiflexion (L4) 4+ Good+ Left Dorsiflexion (L4) 4+ Good+ PT-OP-Q Treatments Start: 07/14/18 12:41 Freq: Status: Active Protocol: Document 09/06/18 09:45 AMB (Rec: 09/07/18 07:55 AMB [email or web address]) Therapeutic Exercises Standing Exercises 5 Standing Exercise Name mayur- charley Reps/Minutes 5 Gait Training Gait Activity 1 Description forward/backward stepping Comments with and without head turns Neuro Re-Education Treatment Balance Activities 5 Details 3 step and single leg stance 4 Details balance pods and hurdles Other Activities 2 Details bosu ball Comments double leg EO 1 Details stride stance blue foam Comments EC/ HT PT-OP-T Assessment and Plan Start: 07/14/18 12:41 Freq: Status: Active Protocol: Document 09/06/18 09:45 AMB (Rec: 09/07/18 07:55 AMB [email or web address]) Physical Therapy Assessment Goals Two Impairment Gait Short Term Goal (STG) Aster will improve his DGI score to 20/24 to show decreased risk of falling. STG Duration 3 weeks Numerical Control Router Operator Goal (LTG) Aster will improve his gait so that he can walk with head turns without loss of balance or veering. LTG Duration PROGRESS MADE One Impairment Balance Short Term Goal (STG) Aster will improve his single leg stance, so that he can balance on one leg for 5 seconds with eyes open. STG Duration 4 weeks Senior Care Goal (LTG) Aster will make a sharp turn while walking without loss of balance. LTG Duration MET Assessment Summary Assessment Aster wants to do the LSVT BIG program, but due to his travel schedule, we will not start that until October. In the interim he will be seen for one more visit to advance his higher level balance challenges. Overall he is very consistent with his HEP and very motivated. Physical Therapy Plan Frequency and Duration Frequency of Treatment 4x/week in October Duration of Treatment 12 weeks Plan of Care Start Date 09/06/18 Plan of Care End Date 11/29/18 Therapeutic Interventions Therapeutic Interventions Balance Training Gait Training Home Exercise Program Manual Therapy Neuromuscular Re-education Self-Care/Home Management Therapeutic Activities Therapeutic Exercises Next Visit Focus/Plan Next Note Type Treatment Note Next Visit Plan continue with higher level balance training and then start LSVT BIG program.
--- NOTE | 2018-10-02 16:27 | PT.OTN ---
Current Diagnoses Parkinson's disease (10/02/18) Ataxia, unspecified (10/02/18) Physical Therapy Treatment Note PT-OP-A Visit Information Start: 07/14/18 12:41 Freq: Status: Active Protocol: Document 10/02/18 08:15 AMB (Rec: 10/02/18 16:17 AMB [email or web address]) Out-Patient Physical Therapy Visit Information Visit Information Visit Type Treatment Note Visit Start Time 08:15 Visit Stop Time 09:30 Total Visit Minutes 45 Visit Number 8 PT-OP-B Current Condition Start: 07/14/18 12:41 Freq: Status: Active Protocol: Document 07/14/18 09:30 AMB (Rec: 07/19/18 07:26 AMB [email or web address]) Current Condition History of Current Condition Onset Date May 2018 Current Complaints Difficulty with gait and balance secondary to Parkinson 's disease History of Current Condition Aster was recently diagnosed with Parkinson's disease, but has noticed some symptoms for years beginning in 2009. He had a good improvement of symptoms with new medication. He is hoping to continue his active lifestyle, but has noticed that he can feel unsteady especially with backing up and turning, and that his left foot tends to drag, especially when he is walking longer distances. He denies any recent falls. Treatment Goals Patient/Caregiver Goals Improve balance/ walking Prior Functional Status Baseline Function- ADL's Independent Baseline Function- Mobility Independent Current Functional Impairments (Reported) Functional Limitations- ADL's Tremor is worse L>R, can limit fine motor activity Functional Limitations- Mobility/Gait Pt notes left leg drags, off balance with turning Personal Factors Other Personal Factors That May Effect Neck and back pain Therapy/Recovery PT-OP-C Subjective Start: 07/14/18 12:41 Freq: Status: Active Protocol: Document 10/02/18 08:15 AMB (Rec: 10/02/18 16:17 AMB [email or web address]) OP-PT Subjective Patient Comments Patient Comments Pt is dealing with plantar fasciits and tennis elbow which are both limiting his function currently. PT-OP-D Balance Start: 07/14/18 12:41 Freq: Status: Active Protocol: Document 07/14/18 09:30 AMB (Rec: 07/19/18 07:39 AMB [email or web address]) Balance Tests Romberg Romberg 30 seconds eyes open, unable eyes closed Single Limb Standing Single Limb- Right 1-2 seconds Single Limb- Left 1 second PT-OP-E Functional Tests Start: 07/14/18 12:41 Freq: Status: Active Protocol: Document 07/14/18 09:30 AMB (Rec: 07/19/18 07:36 AMB [email or web address]) Functional Tests Dynamic Gait Index (DGI) Score 15 DGI Impairment Rating 20 to <40% Impaired (Score 15- 19) PT-OP-G Mobility & Gait Start: 07/14/18 12:41 Freq: Status: Active Protocol: Document 07/14/18 09:30 AMB (Rec: 07/19/18 07:36 AMB [email or web address]) OP Gait Assessment Comments Gait Comments Pt ambulates with reduced arm swing on the left. No scuffing of left foot seen in the clinic with short walks. Reduced head rotation when asked for horizontal head turns. PT-OP-H Neuro Start: 07/14/18 12:41 Freq: Status: Active Protocol: Document 07/14/18 09:30 AMB (Rec: 07/19/18 07:36 AMB [email or web address]) Coordination Evaluation Upper Extremity Tests Left Pronation/Supination Test Minimal Impairment PT-OP-J Posture/Palpation/Skin Start: 07/14/18 12:41 Freq: Status: Active Protocol: Document 07/14/18 09:30 AMB (Rec: 07/19/18 07:36 AMB [email or web address]) Posture Evaluation Comments Posture Comments Slightly forward head, rounded shoulders PT-OP-K Range of Motion Start: 07/14/18 12:41 Freq: Status: Active Protocol: Document 07/14/18 09:30 AMB (Rec: 07/19/18 07:36 AMB [email or web address]) Cervical Spine Range of Motion Cervical Spine Active Degrees Testing Position Sitting Rotation Left 60 Rotation Right 60 Shoulder Goniometric Range of Motion Shoulder Right Active Flexion 150 Left Active Flexion 150 PT-OP-M Strength Start: 07/14/18 12:41 Freq: Status: Active Protocol: Document 07/14/18 09:30 AMB (Rec: 07/19/18 07:41 AMB [email or web address]) Hip Strength Hip Manual Muscle Testing Right Flexion (L2) 5 Normal Abduction 5 Normal Left Flexion (L2) 5 Normal Abduction 5 Normal Knee Strength Knee Manual Muscle Testing Right Flexion (S2) 5 Normal Extension (L3) 5 Normal Left Flexion (S2) 5 Normal Extension (L3) 5 Normal Ankle/Foot Strength Ankle and Foot Manual Muscle Testing Right Dorsiflexion (L4) 4+ Good+ Left Dorsiflexion (L4) 4+ Good+ PT-OP-Q Treatments Start: 07/14/18 12:41 Freq: Status: Active Protocol: Document 10/02/18 08:15 AMB (Rec: 10/03/18 16:27 AMB [email or web address]) Gym Equipment Shuttle Balance 1 Details RED Comments Red- a/p m/l WBOS Neuro Re-Education Treatment Balance Activities 4 Details balance pods and hurdles 2 Details a/p and m/l weight shift with arm swing Reps/Duration 10 1 Details backward/forward/side stepping with arm swing Reps/Duration 10 Other Activities 3 Details walking with head turns Comments forward backward 1 Details stride stance blue foam Comments EC/ HT PT-OP-T Assessment and Plan Start: 07/14/18 12:41 Freq: Status: Active Protocol: Document 10/02/18 08:15 AMB (Rec: 10/02/18 16:17 AMB [email or web address]) Physical Therapy Assessment Assessment Summary Assessment Aster had an excellent visit today, showing good improvement in both dynamic and static balance with improvement to single leg balance on the R (still poor on L) and improvement in DGI. Physical Therapy Plan Next Visit Focus/Plan Next Note Type Treatment Note Next Visit Plan Begin BIG PT next visit
--- NOTE | 2018-10-24 12:09 | PT.OTN ---
Current Diagnoses Parkinson's disease (10/24/18) Ataxia, unspecified (10/24/18) Physical Therapy Treatment Note PT-OP-A Visit Information Start: 07/14/18 12:41 Freq: Status: Active Protocol: Document 10/24/18 10:45 AMB (Rec: 10/24/18 12:09 AMB [email or web address]) Out-Patient Physical Therapy Visit Information Visit Information Visit Type Treatment Note Visit Start Time 10:45 Visit Stop Time 11:44 Total Visit Minutes 59 Visit Number 9 PT-OP-B Current Condition Start: 07/14/18 12:41 Freq: Status: Active Protocol: Document 07/14/18 09:30 AMB (Rec: 07/19/18 07:26 AMB [email or web address]) Current Condition History of Current Condition Onset Date May 2018 Current Complaints Difficulty with gait and balance secondary to Parkinson 's disease History of Current Condition Aster was recently diagnosed with Parkinson's disease, but has noticed some symptoms for years beginning in 2009. He had a good improvement of symptoms with new medication. He is hoping to continue his active lifestyle, but has noticed that he can feel unsteady especially with backing up and turning, and that his left foot tends to drag, especially when he is walking longer distances. He denies any recent falls. Treatment Goals Patient/Caregiver Goals Improve balance/ walking Prior Functional Status Baseline Function- ADL's Independent Baseline Function- Mobility Independent Current Functional Impairments (Reported) Functional Limitations- ADL's Tremor is worse L>R, can limit fine motor activity Functional Limitations- Mobility/Gait Pt notes left leg drags, off balance with turning Personal Factors Other Personal Factors That May Effect Neck and back pain Therapy/Recovery PT-OP-C Subjective Start: 07/14/18 12:41 Freq: Status: Active Protocol: Document 10/24/18 10:45 AMB (Rec: 10/24/18 12:09 AMB [email or web address]) OP-PT Subjective Patient Comments Patient Comments Pt is most concerned with fine motor: getting pills into weekly plastic container. PT-OP-D Balance Start: 07/14/18 12:41 Freq: Status: Active Protocol: Document 07/14/18 09:30 AMB (Rec: 07/19/18 07:39 AMB [email or web address]) Balance Tests Romberg Romberg 30 seconds eyes open, unable eyes closed Single Limb Standing Single Limb- Right 1-2 seconds Single Limb- Left 1 second PT-OP-E Functional Tests Start: 07/14/18 12:41 Freq: Status: Active Protocol: Document 07/14/18 09:30 AMB (Rec: 07/19/18 07:36 AMB [email or web address]) Functional Tests Dynamic Gait Index (DGI) Score 15 DGI Impairment Rating 20 to <40% Impaired (Score 15- 19) PT-OP-G Mobility & Gait Start: 07/14/18 12:41 Freq: Status: Active Protocol: Document 07/14/18 09:30 AMB (Rec: 07/19/18 07:36 AMB [email or web address]) OP Gait Assessment Comments Gait Comments Pt ambulates with reduced arm swing on the left. No scuffing of left foot seen in the clinic with short walks. Reduced head rotation when asked for horizontal head turns. PT-OP-H Neuro Start: 07/14/18 12:41 Freq: Status: Active Protocol: Document 07/14/18 09:30 AMB (Rec: 07/19/18 07:36 AMB [email or web address]) Coordination Evaluation Upper Extremity Tests Left Pronation/Supination Test Minimal Impairment PT-OP-J Posture/Palpation/Skin Start: 07/14/18 12:41 Freq: Status: Active Protocol: Document 07/14/18 09:30 AMB (Rec: 07/19/18 07:36 AMB [email or web address]) Posture Evaluation Comments Posture Comments Slightly forward head, rounded shoulders PT-OP-K Range of Motion Start: 07/14/18 12:41 Freq: Status: Active Protocol: Document 07/14/18 09:30 AMB (Rec: 07/19/18 07:36 AMB [email or web address]) Cervical Spine Range of Motion Cervical Spine Active Degrees Testing Position Sitting Rotation Left 60 Rotation Right 60 Shoulder Goniometric Range of Motion Shoulder Right Active Flexion 150 Left Active Flexion 150 PT-OP-M Strength Start: 07/14/18 12:41 Freq: Status: Active Protocol: Document 07/14/18 09:30 AMB (Rec: 07/19/18 07:41 AMB [email or web address]) Hip Strength Hip Manual Muscle Testing Right Flexion (L2) 5 Normal Abduction 5 Normal Left Flexion (L2) 5 Normal Abduction 5 Normal Knee Strength Knee Manual Muscle Testing Right Flexion (S2) 5 Normal Extension (L3) 5 Normal Left Flexion (S2) 5 Normal Extension (L3) 5 Normal Ankle/Foot Strength Ankle and Foot Manual Muscle Testing Right Dorsiflexion (L4) 4+ Good+ Left Dorsiflexion (L4) 4+ Good+ PT-OP-Q Treatments Start: 07/14/18 12:41 Freq: Status: Active Protocol: Document 10/24/18 10:45 AMB (Rec: 10/24/18 12:09 AMB [email or web address]) Gait Training Gait Activity 4 Description BIG walking Comments with cognitive distraction Neuro Re-Education Treatment Balance Activities 2 Details a/p and m/l weight shift with arm swing Reps/Duration 10x2 ea 1 Details backward/forward/side stepping with arm swing Reps/Duration 10x2 ea Other Activities 6 Details quick turns Comments 180 degrees 5 Details sitting to side to side Reps/Duration 10 4 Details seated floor to ceiling Reps/Duration 10 3 Details walking with head turns Comments horizontal, vertical, diagonal 1 Details stride stance blue foam Comments EC/ HT PT-OP-T Assessment and Plan Start: 07/14/18 12:41 Freq: Status: Active Protocol: Document 10/24/18 10:45 AMB (Rec: 10/24/18 12:09 AMB [email or web address]) Physical Therapy Assessment Assessment Summary Assessment Aster is continuing to do well but is challenged by the rock and reach and needed cueing to have big movements. Physical Therapy Plan Next Visit Focus/Plan Next Note Type Treatment Note Next Visit Plan Continue with BIG with modifications for making more challenging as tolerated
--- NOTE | 2018-10-25 12:52 | PT.OTN ---
Current Diagnoses Parkinson's disease (10/25/18) Ataxia, unspecified (10/25/18) Physical Therapy Treatment Note PT-OP-A Visit Information Start: 07/14/18 12:41 Freq: Status: Active Protocol: Document 10/25/18 11:00 AMB (Rec: 10/25/18 12:52 AMB [email or web address]) Out-Patient Physical Therapy Visit Information Visit Information Visit Type Progress Note Visit Note 05/31 Visit Start Time 10:45 Visit Stop Time 11:44 Total Visit Minutes 59 Visit Number 10 PT-OP-B Current Condition Start: 07/14/18 12:41 Freq: Status: Active Protocol: Document 07/14/18 09:30 AMB (Rec: 07/19/18 07:26 AMB [email or web address]) Current Condition History of Current Condition Onset Date May 2018 Current Complaints Difficulty with gait and balance secondary to Parkinson 's disease History of Current Condition Aster was recently diagnosed with Parkinson's disease, but has noticed some symptoms for years beginning in 2009. He had a good improvement of symptoms with new medication. He is hoping to continue his active lifestyle, but has noticed that he can feel unsteady especially with backing up and turning, and that his left foot tends to drag, especially when he is walking longer distances. He denies any recent falls. Treatment Goals Patient/Caregiver Goals Improve balance/ walking Prior Functional Status Baseline Function- ADL's Independent Baseline Function- Mobility Independent Current Functional Impairments (Reported) Functional Limitations- ADL's Tremor is worse L>R, can limit fine motor activity Functional Limitations- Mobility/Gait Pt notes left leg drags, off balance with turning Personal Factors Other Personal Factors That May Effect Neck and back pain Therapy/Recovery PT-OP-C Subjective Start: 07/14/18 12:41 Freq: Status: Active Protocol: Document 10/25/18 11:00 AMB (Rec: 10/25/18 12:52 AMB [email or web address]) OP-PT Subjective Patient Comments Patient Comments Aster also is concerned about his balance, he feels he has a hard time remembering novel physical movements (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 PT-OP-D Balance Start: 07/14/18 12:41 Freq: Status: Active Protocol: Document 07/14/18 09:30 AMB (Rec: 07/19/18 07:39 AMB [email or web address]) Balance Tests Romberg Romberg 30 seconds eyes open, unable eyes closed Single Limb Standing Single Limb- Right 1-2 seconds Single Limb- Left 1 second PT-OP-E Functional Tests Start: 07/14/18 12:41 Freq: Status: Active Protocol: Document 07/14/18 09:30 AMB (Rec: 07/19/18 07:36 AMB [email or web address]) Functional Tests Dynamic Gait Index (DGI) Score 15 DGI Impairment Rating 20 to <40% Impaired (Score 15- 19) PT-OP-G Mobility & Gait Start: 07/14/18 12:41 Freq: Status: Active Protocol: Document 07/14/18 09:30 AMB (Rec: 07/19/18 07:36 AMB [email or web address]) OP Gait Assessment Comments Gait Comments Pt ambulates with reduced arm swing on the left. No scuffing of left foot seen in the clinic with short walks. Reduced head rotation when asked for horizontal head turns. PT-OP-H Neuro Start: 07/14/18 12:41 Freq: Status: Active Protocol: Document 07/14/18 09:30 AMB (Rec: 07/19/18 07:36 AMB [email or web address]) Coordination Evaluation Upper Extremity Tests Left Pronation/Supination Test Minimal Impairment PT-OP-J Posture/Palpation/Skin Start: 07/14/18 12:41 Freq: Status: Active Protocol: Document 07/14/18 09:30 AMB (Rec: 07/19/18 07:36 AMB [email or web address]) Posture Evaluation Comments Posture Comments Slightly forward head, rounded shoulders PT-OP-K Range of Motion Start: 07/14/18 12:41 Freq: Status: Active Protocol: Document 07/14/18 09:30 AMB (Rec: 07/19/18 07:36 AMB [email or web address]) Cervical Spine Range of Motion Cervical Spine Active Degrees Testing Position Sitting Rotation Left 60 Rotation Right 60 Shoulder Goniometric Range of Motion Shoulder Right Active Flexion 150 Left Active Flexion 150 PT-OP-M Strength Start: 07/14/18 12:41 Freq: Status: Active Protocol: Document 07/14/18 09:30 AMB (Rec: 07/19/18 07:41 AMB [email or web address]) Hip Strength Hip Manual Muscle Testing Right Flexion (L2) 5 Normal Abduction 5 Normal Left Flexion (L2) 5 Normal Abduction 5 Normal Knee Strength Knee Manual Muscle Testing Right Flexion (S2) 5 Normal Extension (L3) 5 Normal Left Flexion (S2) 5 Normal Extension (L3) 5 Normal Ankle/Foot Strength Ankle and Foot Manual Muscle Testing Right Dorsiflexion (L4) 4+ Good+ Left Dorsiflexion (L4) 4+ Good+ PT-OP-Q Treatments Start: 07/14/18 12:41 Freq: Status: Active Protocol: Document 10/25/18 11:00 AMB (Rec: 10/25/18 12:52 AMB [email or web address]) Gym Equipment Shuttle Balance 1 Details RED Comments Red- a/p m/l WBOS- added slow head turns Therapeutic Activity Therapeutic Activity 1 Name screwing and unscrewing Comments screws and washers Gait Training Gait Activity 4 Description BIG walking Comments outdoors, down two flights of stairs with 1 railing Neuro Re-Education Treatment Balance Activities 2 Details a/p and m/l weight shift with arm swing Reps/Duration 10x2 ea 1 Details backward/forward/side stepping with arm swing Reps/Duration 10x2 ea Other Activities 6 Details quick turns Comments 180 degrees 5 Details sitting to side to side Reps/Duration 10 4 Details seated floor to ceiling Reps/Duration 10 3 Details walking with head turns Comments horizontal, vertical, diagonal PT-OP-T Assessment and Plan Start: 07/14/18 12:41 Freq: Status: Active Protocol: Document 10/25/18 11:00 AMB (Rec: 10/25/18 12:52 AMB [email or web address]) Physical Therapy Assessment Assessment Summary Assessment Aster unscrewed the smallest screw in 12 seconds and did not find that fine motor task especially challenging. Single leg stance remains challenging. Physical Therapy Plan Next Visit Focus/Plan Next Note Type Treatment Note Next Visit Plan Continue with BIG with modifications for making more challenging as tolerated
--- NOTE | 2018-10-26 15:15 | PT.OTN ---
Current Diagnoses Parkinson's disease (10/26/18) Ataxia, unspecified (10/26/18) Physical Therapy Treatment Note PT-OP-A Visit Information Start: 07/14/18 12:41 Freq: Status: Active Protocol: Document 10/26/18 11:00 AMB (Rec: 10/26/18 13:01 AMB [email or web address]) Out-Patient Physical Therapy Visit Information Visit Information Visit Type Treatment Note Visit Note 06/30 Visit Start Time 11:00 Visit Stop Time 11:55 Total Visit Minutes 55 Visit Number 11 PT-OP-B Current Condition Start: 07/14/18 12:41 Freq: Status: Active Protocol: Document 07/14/18 09:30 AMB (Rec: 07/19/18 07:26 AMB [email or web address]) Current Condition History of Current Condition Onset Date May 2018 Current Complaints Difficulty with gait and balance secondary to Parkinson 's disease History of Current Condition Aster was recently diagnosed with Parkinson's disease, but has noticed some symptoms for years beginning in 2009. He had a good improvement of symptoms with new medication. He is hoping to continue his active lifestyle, but has noticed that he can feel unsteady especially with backing up and turning, and that his left foot tends to drag, especially when he is walking longer distances. He denies any recent falls. Treatment Goals Patient/Caregiver Goals Improve balance/ walking Prior Functional Status Baseline Function- ADL's Independent Baseline Function- Mobility Independent Current Functional Impairments (Reported) Functional Limitations- ADL's Tremor is worse L>R, can limit fine motor activity Functional Limitations- Mobility/Gait Pt notes left leg drags, off balance with turning Personal Factors Other Personal Factors That May Effect Neck and back pain Therapy/Recovery PT-OP-C Subjective Start: 07/14/18 12:41 Freq: Status: Active Protocol: Document 10/26/18 11:00 AMB (Rec: 10/26/18 13:01 AMB [email or web address]) OP-PT Subjective Patient Comments Patient Comments Doing well, went for a walk yesterday and practiced BIG walking but heel was sore this morning. PT-OP-D Balance Start: 07/14/18 12:41 Freq: Status: Active Protocol: Document 07/14/18 09:30 AMB (Rec: 07/19/18 07:39 AMB [email or web address]) Balance Tests Romberg Romberg 30 seconds eyes open, unable eyes closed Single Limb Standing Single Limb- Right 1-2 seconds Single Limb- Left 1 second PT-OP-E Functional Tests Start: 07/14/18 12:41 Freq: Status: Active Protocol: Document 07/14/18 09:30 AMB (Rec: 07/19/18 07:36 AMB [email or web address]) Functional Tests Dynamic Gait Index (DGI) Score 15 DGI Impairment Rating 20 to <40% Impaired (Score 15- 19) PT-OP-G Mobility & Gait Start: 07/14/18 12:41 Freq: Status: Active Protocol: Document 07/14/18 09:30 AMB (Rec: 07/19/18 07:36 AMB [email or web address]) OP Gait Assessment Comments Gait Comments Pt ambulates with reduced arm swing on the left. No scuffing of left foot seen in the clinic with short walks. Reduced head rotation when asked for horizontal head turns. PT-OP-H Neuro Start: 07/14/18 12:41 Freq: Status: Active Protocol: Document 07/14/18 09:30 AMB (Rec: 07/19/18 07:36 AMB [email or web address]) Coordination Evaluation Upper Extremity Tests Left Pronation/Supination Test Minimal Impairment PT-OP-J Posture/Palpation/Skin Start: 07/14/18 12:41 Freq: Status: Active Protocol: Document 07/14/18 09:30 AMB (Rec: 07/19/18 07:36 AMB [email or web address]) Posture Evaluation Comments Posture Comments Slightly forward head, rounded shoulders PT-OP-K Range of Motion Start: 07/14/18 12:41 Freq: Status: Active Protocol: Document 07/14/18 09:30 AMB (Rec: 07/19/18 07:36 AMB [email or web address]) Cervical Spine Range of Motion Cervical Spine Active Degrees Testing Position Sitting Rotation Left 60 Rotation Right 60 Shoulder Goniometric Range of Motion Shoulder Right Active Flexion 150 Left Active Flexion 150 PT-OP-M Strength Start: 07/14/18 12:41 Freq: Status: Active Protocol: Document 07/14/18 09:30 AMB (Rec: 07/19/18 07:41 AMB [email or web address]) Hip Strength Hip Manual Muscle Testing Right Flexion (L2) 5 Normal Abduction 5 Normal Left Flexion (L2) 5 Normal Abduction 5 Normal Knee Strength Knee Manual Muscle Testing Right Flexion (S2) 5 Normal Extension (L3) 5 Normal Left Flexion (S2) 5 Normal Extension (L3) 5 Normal Ankle/Foot Strength Ankle and Foot Manual Muscle Testing Right Dorsiflexion (L4) 4+ Good+ Left Dorsiflexion (L4) 4+ Good+ PT-OP-Q Treatments Start: 07/14/18 12:41 Freq: Status: Active Protocol: Document 10/26/18 11:00 AMB (Rec: 10/26/18 15:15 AMB [email or web address]) Gym Equipment Shuttle Balance 1 Details RED Comments Red- a/p m/l WBOS- added slow head turns Yellow- ball toss and catch Therapeutic Activity Therapeutic Activity 2 Name floor transfer training Comments needs 1 UE for support with moving from seated to quadruped Neuro Re-Education Treatment Balance Activities 2 Details a/p and m/l weight shift with arm swing Reps/Duration 10x2 ea 1 Details backward/forward/side stepping with arm swing Reps/Duration 10x2 ea Other Activities 5 Details sitting to side to side Reps/Duration 10 4 Details seated floor to ceiling Reps/Duration 10 3 Details walking with head turns Comments horizontal, vertical, diagonal PT-OP-T Assessment and Plan Start: 07/14/18 12:41 Freq: Status: Active Protocol: Document 10/26/18 11:00 AMB (Rec: 10/26/18 13:01 AMB [email or web address]) Physical Therapy Assessment Assessment Summary Assessment Good floor transfer coordination, good tolerance of 1# weights for rocking exercises. Physical Therapy Plan Next Visit Focus/Plan Next Note Type Treatment Note Next Visit Plan Continue with BIG with modifications for making more challenging as tolerated
--- NOTE | 2018-10-27 16:31 | PT.OTN ---
Current Diagnoses Parkinson's disease (10/27/18) Ataxia, unspecified (10/27/18) Physical Therapy Treatment Note PT-OP-A Visit Information Start: 07/14/18 12:41 Freq: Status: Active Protocol: Document 10/27/18 11:00 AMB (Rec: 10/27/18 16:28 AMB [email or web address]) Out-Patient Physical Therapy Visit Information Visit Information Visit Type Treatment Note Visit Note 07/31 Visit Start Time 11:00 Visit Stop Time 12:00 Total Visit Minutes 60 Visit Number 12 PT-OP-B Current Condition Start: 07/14/18 12:41 Freq: Status: Active Protocol: Document 07/14/18 09:30 AMB (Rec: 07/19/18 07:26 AMB [email or web address]) Current Condition History of Current Condition Onset Date May 2018 Current Complaints Difficulty with gait and balance secondary to Parkinson 's disease History of Current Condition Aster was recently diagnosed with Parkinson's disease, but has noticed some symptoms for years beginning in 2009. He had a good improvement of symptoms with new medication. He is hoping to continue his active lifestyle, but has noticed that he can feel unsteady especially with backing up and turning, and that his left foot tends to drag, especially when he is walking longer distances. He denies any recent falls. Treatment Goals Patient/Caregiver Goals Improve balance/ walking Prior Functional Status Baseline Function- ADL's Independent Baseline Function- Mobility Independent Current Functional Impairments (Reported) Functional Limitations- ADL's Tremor is worse L>R, can limit fine motor activity Functional Limitations- Mobility/Gait Pt notes left leg drags, off balance with turning Personal Factors Other Personal Factors That May Effect Neck and back pain Therapy/Recovery PT-OP-C Subjective Start: 07/14/18 12:41 Freq: Status: Active Protocol: Document 10/27/18 11:00 AMB (Rec: 10/27/18 16:28 AMB [email or web address]) OP-PT Subjective Patient Comments Patient Comments Pt doing well today. PT-OP-D Balance Start: 07/14/18 12:41 Freq: Status: Active Protocol: Document 07/14/18 09:30 AMB (Rec: 07/19/18 07:39 AMB [email or web address]) Balance Tests Romberg Romberg 30 seconds eyes open, unable eyes closed Single Limb Standing Single Limb- Right 1-2 seconds Single Limb- Left 1 second PT-OP-E Functional Tests Start: 07/14/18 12:41 Freq: Status: Active Protocol: Document 07/14/18 09:30 AMB (Rec: 07/19/18 07:36 AMB [email or web address]) Functional Tests Dynamic Gait Index (DGI) Score 15 DGI Impairment Rating 20 to <40% Impaired (Score 15- 19) PT-OP-G Mobility & Gait Start: 07/14/18 12:41 Freq: Status: Active Protocol: Document 07/14/18 09:30 AMB (Rec: 07/19/18 07:36 AMB [email or web address]) OP Gait Assessment Comments Gait Comments Pt ambulates with reduced arm swing on the left. No scuffing of left foot seen in the clinic with short walks. Reduced head rotation when asked for horizontal head turns. PT-OP-H Neuro Start: 07/14/18 12:41 Freq: Status: Active Protocol: Document 07/14/18 09:30 AMB (Rec: 07/19/18 07:36 AMB [email or web address]) Coordination Evaluation Upper Extremity Tests Left Pronation/Supination Test Minimal Impairment PT-OP-J Posture/Palpation/Skin Start: 07/14/18 12:41 Freq: Status: Active Protocol: Document 07/14/18 09:30 AMB (Rec: 07/19/18 07:36 AMB [email or web address]) Posture Evaluation Comments Posture Comments Slightly forward head, rounded shoulders PT-OP-K Range of Motion Start: 07/14/18 12:41 Freq: Status: Active Protocol: Document 07/14/18 09:30 AMB (Rec: 07/19/18 07:36 AMB [email or web address]) Cervical Spine Range of Motion Cervical Spine Active Degrees Testing Position Sitting Rotation Left 60 Rotation Right 60 Shoulder Goniometric Range of Motion Shoulder Right Active Flexion 150 Left Active Flexion 150 PT-OP-M Strength Start: 07/14/18 12:41 Freq: Status: Active Protocol: Document 07/14/18 09:30 AMB (Rec: 07/19/18 07:41 AMB [email or web address]) Hip Strength Hip Manual Muscle Testing Right Flexion (L2) 5 Normal Abduction 5 Normal Left Flexion (L2) 5 Normal Abduction 5 Normal Knee Strength Knee Manual Muscle Testing Right Flexion (S2) 5 Normal Extension (L3) 5 Normal Left Flexion (S2) 5 Normal Extension (L3) 5 Normal Ankle/Foot Strength Ankle and Foot Manual Muscle Testing Right Dorsiflexion (L4) 4+ Good+ Left Dorsiflexion (L4) 4+ Good+ PT-OP-Q Treatments Start: 07/14/18 12:41 Freq: Status: Active Protocol: Document 10/27/18 11:00 AMB (Rec: 10/27/18 16:28 AMB [email or web address]) Gym Equipment Shuttle Balance 1 Details RED Comments Red- a/p m/l WBOS- slow head turns BLUE- ball toss and catch Neuro Re-Education Treatment Balance Activities 5 Details step up on bosu ball Comments 10x3 2 Details a/p and m/l weight shift with arm swing Reps/Duration 10x2 ea Comments with 1# wrist weights 1 Details backward/forward/side stepping with arm swing Reps/Duration 10x2 ea Other Activities 5 Details sitting to side to side Reps/Duration 10 4 Details seated floor to ceiling Reps/Duration 10 3 Details walking with head turns Comments horizontal, vertical, diagonal PT-OP-T Assessment and Plan Start: 07/14/18 12:41 Freq: Status: Active Protocol: Document 10/27/18 11:00 AMB (Rec: 10/27/18 16:28 AMB [email or web address]) Physical Therapy Assessment Assessment Summary Assessment Aster did well today but continues to be challenged with uneven surfaces. Physical Therapy Plan Next Visit Focus/Plan Next Note Type Treatment Note Next Visit Plan Continue with BIG with modifications for making more challenging as tolerated
--- NOTE | 2018-10-30 16:15 | PT.OTN ---
Current Diagnoses Parkinson's disease (10/30/18) Ataxia, unspecified (10/30/18) Physical Therapy Treatment Note PT-OP-A Visit Information Start: 07/14/18 12:41 Freq: Status: Active Protocol: Document 10/30/18 11:00 AMB (Rec: 10/30/18 11:31 AMB [id number]) Out-Patient Physical Therapy Visit Information Visit Information Visit Type Treatment Note Visit Note 08/30 Visit Start Time 11:00 Visit Stop Time 12:00 Total Visit Minutes 60 Visit Number 13 PT-OP-B Current Condition Start: 07/14/18 12:41 Freq: Status: Active Protocol: Document 07/14/18 09:30 AMB (Rec: 07/19/18 07:26 AMB [email or web address]) Current Condition History of Current Condition Onset Date May 2018 Current Complaints Difficulty with gait and balance secondary to Parkinson 's disease History of Current Condition Aster was recently diagnosed with Parkinson's disease, but has noticed some symptoms for years beginning in 2009. He had a good improvement of symptoms with new medication. He is hoping to continue his active lifestyle, but has noticed that he can feel unsteady especially with backing up and turning, and that his left foot tends to drag, especially when he is walking longer distances. He denies any recent falls. Treatment Goals Patient/Caregiver Goals Improve balance/ walking Prior Functional Status Baseline Function- ADL's Independent Baseline Function- Mobility Independent Current Functional Impairments (Reported) Functional Limitations- ADL's Tremor is worse L>R, can limit fine motor activity Functional Limitations- Mobility/Gait Pt notes left leg drags, off balance with turning Personal Factors Other Personal Factors That May Effect Neck and back pain Therapy/Recovery PT-OP-C Subjective Start: 07/14/18 12:41 Freq: Status: Active Protocol: Document 10/30/18 11:00 AMB (Rec: 10/30/18 11:31 AMB [id number]) OP-PT Subjective Patient Comments Patient Comments Pt reports BP has been about 150/90. Had two near falls over the weekend both with turning. PT-OP-D Balance Start: 07/14/18 12:41 Freq: Status: Active Protocol: Document 07/14/18 09:30 AMB (Rec: 07/19/18 07:39 AMB [email or web address]) Balance Tests Romberg Romberg 30 seconds eyes open, unable eyes closed Single Limb Standing Single Limb- Right 1-2 seconds Single Limb- Left 1 second PT-OP-E Functional Tests Start: 07/14/18 12:41 Freq: Status: Active Protocol: Document 07/14/18 09:30 AMB (Rec: 07/19/18 07:36 AMB [email or web address]) Functional Tests Dynamic Gait Index (DGI) Score 15 DGI Impairment Rating 20 to <40% Impaired (Score 15- 19) PT-OP-G Mobility & Gait Start: 07/14/18 12:41 Freq: Status: Active Protocol: Document 07/14/18 09:30 AMB (Rec: 07/19/18 07:36 AMB [email or web address]) OP Gait Assessment Comments Gait Comments Pt ambulates with reduced arm swing on the left. No scuffing of left foot seen in the clinic with short walks. Reduced head rotation when asked for horizontal head turns. PT-OP-H Neuro Start: 07/14/18 12:41 Freq: Status: Active Protocol: Document 07/14/18 09:30 AMB (Rec: 07/19/18 07:36 AMB [email or web address]) Coordination Evaluation Upper Extremity Tests Left Pronation/Supination Test Minimal Impairment PT-OP-J Posture/Palpation/Skin Start: 07/14/18 12:41 Freq: Status: Active Protocol: Document 07/14/18 09:30 AMB (Rec: 07/19/18 07:36 AMB [email or web address]) Posture Evaluation Comments Posture Comments Slightly forward head, rounded shoulders PT-OP-K Range of Motion Start: 07/14/18 12:41 Freq: Status: Active Protocol: Document 07/14/18 09:30 AMB (Rec: 07/19/18 07:36 AMB [email or web address]) Cervical Spine Range of Motion Cervical Spine Active Degrees Testing Position Sitting Rotation Left 60 Rotation Right 60 Shoulder Goniometric Range of Motion Shoulder Right Active Flexion 150 Left Active Flexion 150 PT-OP-M Strength Start: 07/14/18 12:41 Freq: Status: Active Protocol: Document 07/14/18 09:30 AMB (Rec: 07/19/18 07:41 AMB [email or web address]) Hip Strength Hip Manual Muscle Testing Right Flexion (L2) 5 Normal Abduction 5 Normal Left Flexion (L2) 5 Normal Abduction 5 Normal Knee Strength Knee Manual Muscle Testing Right Flexion (S2) 5 Normal Extension (L3) 5 Normal Left Flexion (S2) 5 Normal Extension (L3) 5 Normal Ankle/Foot Strength Ankle and Foot Manual Muscle Testing Right Dorsiflexion (L4) 4+ Good+ Left Dorsiflexion (L4) 4+ Good+ PT-OP-Q Treatments Start: 07/14/18 12:41 Freq: Status: Active Protocol: Document 10/30/18 11:00 AMB (Rec: 10/30/18 16:15 AMB [email or web address]) Gym Equipment Shuttle Balance 1 Details RED Comments Red- a/p m/l WBOS- slow head turns BLUE- ball toss and catch Neuro Re-Education Treatment Balance Activities 2 Details a/p and m/l weight shift with arm swing Reps/Duration 10x2 ea Comments with 1# wrist weights 1 Details backward/forward/side stepping with arm swing Reps/Duration 10x2 ea Comments #1 wrist weights Other Activities 5 Details sitting to side to side Reps/Duration 10 4 Details seated floor to ceiling Reps/Duration 10 3 Details walking with head turns Comments horizontal, vertical, diagonal 2 Details VOR Comments on mejia foam PT-OP-T Assessment and Plan Start: 07/14/18 12:41 Freq: Status: Active Protocol: Document 10/30/18 11:00 AMB (Rec: 10/30/18 16:15 AMB [email or web address]) Physical Therapy Assessment Assessment Summary Assessment Looked at head turns and body turns due to pt's recent feeling of near falling. Physical Therapy Plan Next Visit Focus/Plan Next Note Type Treatment Note Next Visit Plan Continue with BIG with modifications for making more challenging as tolerated
--- NOTE | 2018-10-31 13:01 | PT.OTN ---
Current Diagnoses Parkinson's disease (10/31/18) Ataxia, unspecified (10/31/18) Physical Therapy Treatment Note PT-OP-A Visit Information Start: 07/14/18 12:41 Freq: Status: Active Protocol: Document 10/31/18 11:00 AMB (Rec: 10/31/18 11:32 AMB [id number]) Out-Patient Physical Therapy Visit Information Visit Information Visit Type Treatment Note Visit Start Time 11:00 Visit Stop Time 12:00 Total Visit Minutes 60 Visit Number 14 PT-OP-B Current Condition Start: 07/14/18 12:41 Freq: Status: Active Protocol: Document 07/14/18 09:30 AMB (Rec: 07/19/18 07:26 AMB [email or web address]) Current Condition History of Current Condition Onset Date May 2018 Current Complaints Difficulty with gait and balance secondary to Parkinson 's disease History of Current Condition Aster was recently diagnosed with Parkinson's disease, but has noticed some symptoms for years beginning in 2009. He had a good improvement of symptoms with new medication. He is hoping to continue his active lifestyle, but has noticed that he can feel unsteady especially with backing up and turning, and that his left foot tends to drag, especially when he is walking longer distances. He denies any recent falls. Treatment Goals Patient/Caregiver Goals Improve balance/ walking Prior Functional Status Baseline Function- ADL's Independent Baseline Function- Mobility Independent Current Functional Impairments (Reported) Functional Limitations- ADL's Tremor is worse L>R, can limit fine motor activity Functional Limitations- Mobility/Gait Pt notes left leg drags, off balance with turning Personal Factors Other Personal Factors That May Effect Neck and back pain Therapy/Recovery PT-OP-C Subjective Start: 07/14/18 12:41 Freq: Status: Active Protocol: Document 10/31/18 11:00 AMB (Rec: 10/31/18 11:32 AMB [id number]) OP-PT Subjective Patient Comments Patient Comments Pt has been doing his exercises and feeling good. PT-OP-D Balance Start: 07/14/18 12:41 Freq: Status: Active Protocol: Document 07/14/18 09:30 AMB (Rec: 07/19/18 07:39 AMB [email or web address]) Balance Tests Romberg Romberg 30 seconds eyes open, unable eyes closed Single Limb Standing Single Limb- Right 1-2 seconds Single Limb- Left 1 second PT-OP-E Functional Tests Start: 07/14/18 12:41 Freq: Status: Active Protocol: Document 07/14/18 09:30 AMB (Rec: 07/19/18 07:36 AMB [email or web address]) Functional Tests Dynamic Gait Index (DGI) Score 15 DGI Impairment Rating 20 to <40% Impaired (Score 15- 19) PT-OP-G Mobility & Gait Start: 07/14/18 12:41 Freq: Status: Active Protocol: Document 07/14/18 09:30 AMB (Rec: 07/19/18 07:36 AMB [email or web address]) OP Gait Assessment Comments Gait Comments Pt ambulates with reduced arm swing on the left. No scuffing of left foot seen in the clinic with short walks. Reduced head rotation when asked for horizontal head turns. PT-OP-H Neuro Start: 07/14/18 12:41 Freq: Status: Active Protocol: Document 07/14/18 09:30 AMB (Rec: 07/19/18 07:36 AMB [email or web address]) Coordination Evaluation Upper Extremity Tests Left Pronation/Supination Test Minimal Impairment PT-OP-J Posture/Palpation/Skin Start: 07/14/18 12:41 Freq: Status: Active Protocol: Document 07/14/18 09:30 AMB (Rec: 07/19/18 07:36 AMB [email or web address]) Posture Evaluation Comments Posture Comments Slightly forward head, rounded shoulders PT-OP-K Range of Motion Start: 07/14/18 12:41 Freq: Status: Active Protocol: Document 07/14/18 09:30 AMB (Rec: 07/19/18 07:36 AMB [email or web address]) Cervical Spine Range of Motion Cervical Spine Active Degrees Testing Position Sitting Rotation Left 60 Rotation Right 60 Shoulder Goniometric Range of Motion Shoulder Right Active Flexion 150 Left Active Flexion 150 PT-OP-M Strength Start: 07/14/18 12:41 Freq: Status: Active Protocol: Document 07/14/18 09:30 AMB (Rec: 07/19/18 07:41 AMB [email or web address]) Hip Strength Hip Manual Muscle Testing Right Flexion (L2) 5 Normal Abduction 5 Normal Left Flexion (L2) 5 Normal Abduction 5 Normal Knee Strength Knee Manual Muscle Testing Right Flexion (S2) 5 Normal Extension (L3) 5 Normal Left Flexion (S2) 5 Normal Extension (L3) 5 Normal Ankle/Foot Strength Ankle and Foot Manual Muscle Testing Right Dorsiflexion (L4) 4+ Good+ Left Dorsiflexion (L4) 4+ Good+ PT-OP-Q Treatments Start: 07/14/18 12:41 Freq: Status: Active Protocol: Document 10/31/18 11:00 AMB (Rec: 10/31/18 13:01 AMB [email or web address]) Gym Equipment Shuttle Balance 1 Details RED Comments Red- a/p m/l WBOS and stride stance- slow head turns Neuro Re-Education Treatment Balance Activities 7 Details tandem with head turns Comments diagonal 6 Details 3 step and SLS 2 Details a/p and m/l weight shift with arm swing Reps/Duration 10x2 ea Comments with 1# wrist weights 1 Details backward/forward/side stepping with arm swing Reps/Duration 10x2 ea Comments #1 wrist weights Other Activities 5 Details sitting to side to side Reps/Duration 10 4 Details seated floor to ceiling Reps/Duration 10 3 Details walking with head turns Comments horizontal, vertical, diagonal PT-OP-T Assessment and Plan Start: 07/14/18 12:41 Freq: Status: Active Protocol: Document 10/31/18 11:00 AMB (Rec: 10/31/18 13:01 AMB [email or web address]) Physical Therapy Assessment Assessment Summary Assessment Pt showing good improvement with walking with head turns. Is noticing more tremor that is affecting handwriting. Physical Therapy Plan Next Visit Focus/Plan Next Note Type Treatment Note Next Visit Plan Continue with BIG with modifications for making more challenging as tolerated
--- NOTE | 2018-11-01 12:16 | PT.OTN ---
Current Diagnoses Parkinson's disease (11/01/18) Ataxia, unspecified (11/01/18) Physical Therapy Treatment Note PT-OP-A Visit Information Start: 07/14/18 12:41 Freq: Status: Active Protocol: Document 11/01/18 11:00 AMB (Rec: 11/01/18 12:16 AMB [email or web address]) Out-Patient Physical Therapy Visit Information Visit Information Visit Type Treatment Note Visit Start Time 11:00 Visit Stop Time 12:00 Total Visit Minutes 60 Visit Number 15 PT-OP-B Current Condition Start: 07/14/18 12:41 Freq: Status: Active Protocol: Document 07/14/18 09:30 AMB (Rec: 07/19/18 07:26 AMB [email or web address]) Current Condition History of Current Condition Onset Date May 2018 Current Complaints Difficulty with gait and balance secondary to Parkinson 's disease History of Current Condition Aster was recently diagnosed with Parkinson's disease, but has noticed some symptoms for years beginning in 2009. He had a good improvement of symptoms with new medication. He is hoping to continue his active lifestyle, but has noticed that he can feel unsteady especially with backing up and turning, and that his left foot tends to drag, especially when he is walking longer distances. He denies any recent falls. Treatment Goals Patient/Caregiver Goals Improve balance/ walking Prior Functional Status Baseline Function- ADL's Independent Baseline Function- Mobility Independent Current Functional Impairments (Reported) Functional Limitations- ADL's Tremor is worse L>R, can limit fine motor activity Functional Limitations- Mobility/Gait Pt notes left leg drags, off balance with turning Personal Factors Other Personal Factors That May Effect Neck and back pain Therapy/Recovery PT-OP-C Subjective Start: 07/14/18 12:41 Freq: Status: Active Protocol: Document 11/01/18 11:00 AMB (Rec: 11/01/18 12:16 AMB [email or web address]) OP-PT Subjective Patient Comments Patient Comments Pt is feeling good, sometimes surprised how his balance feels. PT-OP-D Balance Start: 07/14/18 12:41 Freq: Status: Active Protocol: Document 07/14/18 09:30 AMB (Rec: 07/19/18 07:39 AMB [email or web address]) Balance Tests Romberg Romberg 30 seconds eyes open, unable eyes closed Single Limb Standing Single Limb- Right 1-2 seconds Single Limb- Left 1 second PT-OP-E Functional Tests Start: 07/14/18 12:41 Freq: Status: Active Protocol: Document 07/14/18 09:30 AMB (Rec: 07/19/18 07:36 AMB [email or web address]) Functional Tests Dynamic Gait Index (DGI) Score 15 DGI Impairment Rating 20 to <40% Impaired (Score 15- 19) PT-OP-G Mobility & Gait Start: 07/14/18 12:41 Freq: Status: Active Protocol: Document 07/14/18 09:30 AMB (Rec: 07/19/18 07:36 AMB [email or web address]) OP Gait Assessment Comments Gait Comments Pt ambulates with reduced arm swing on the left. No scuffing of left foot seen in the clinic with short walks. Reduced head rotation when asked for horizontal head turns. PT-OP-H Neuro Start: 07/14/18 12:41 Freq: Status: Active Protocol: Document 07/14/18 09:30 AMB (Rec: 07/19/18 07:36 AMB [email or web address]) Coordination Evaluation Upper Extremity Tests Left Pronation/Supination Test Minimal Impairment PT-OP-J Posture/Palpation/Skin Start: 07/14/18 12:41 Freq: Status: Active Protocol: Document 07/14/18 09:30 AMB (Rec: 07/19/18 07:36 AMB [email or web address]) Posture Evaluation Comments Posture Comments Slightly forward head, rounded shoulders PT-OP-K Range of Motion Start: 07/14/18 12:41 Freq: Status: Active Protocol: Document 07/14/18 09:30 AMB (Rec: 07/19/18 07:36 AMB [email or web address]) Cervical Spine Range of Motion Cervical Spine Active Degrees Testing Position Sitting Rotation Left 60 Rotation Right 60 Shoulder Goniometric Range of Motion Shoulder Right Active Flexion 150 Left Active Flexion 150 PT-OP-M Strength Start: 07/14/18 12:41 Freq: Status: Active Protocol: Document 07/14/18 09:30 AMB (Rec: 07/19/18 07:41 AMB [email or web address]) Hip Strength Hip Manual Muscle Testing Right Flexion (L2) 5 Normal Abduction 5 Normal Left Flexion (L2) 5 Normal Abduction 5 Normal Knee Strength Knee Manual Muscle Testing Right Flexion (S2) 5 Normal Extension (L3) 5 Normal Left Flexion (S2) 5 Normal Extension (L3) 5 Normal Ankle/Foot Strength Ankle and Foot Manual Muscle Testing Right Dorsiflexion (L4) 4+ Good+ Left Dorsiflexion (L4) 4+ Good+ PT-OP-Q Treatments Start: 07/14/18 12:41 Freq: Status: Active Protocol: Document 11/01/18 11:00 AMB (Rec: 11/01/18 12:16 AMB [email or web address]) Gym Equipment Shuttle Balance 1 Details RED Comments Red- a/p m/l WBOS and stride stance- slow head turns YELLOW- ball toss and catch Neuro Re-Education Treatment Balance Activities 7 Details tandem with head turns Comments diagonal 6 Details 3 step and SLS Comments added hip ER 2 Details a/p and m/l weight shift with arm swing Reps/Duration 10x2 ea Comments with 1# wrist weights 1 Details backward/forward/side stepping with arm swing Reps/Duration 10x2 ea Comments #1 wrist weights Coordination Activities 1 Details alt april with opposite shoulder flex Comments pn 65cm ball Other Activities 5 Details sitting to side to side Reps/Duration 10 4 Details seated floor to ceiling Reps/Duration 10 3 Details walking with head turns Comments horizontal, vertical, diagonal PT-OP-T Assessment and Plan Start: 07/14/18 12:41 Freq: Status: Active Protocol: Document 11/01/18 11:00 AMB (Rec: 11/01/18 12:16 AMB [email or web address]) Physical Therapy Assessment Assessment Summary Assessment Aster doing well today, challenged by single leg balance but is improving. Physical Therapy Plan Next Visit Focus/Plan Next Note Type Treatment Note Next Visit Plan Continue with BIG with modifications for making more challenging as tolerated
--- NOTE | 2018-11-13 15:12 | PT.OTN ---
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) Physical Therapy Treatment Note PT-OP-A Visit Information Start: 07/14/18 12:41 Freq: Status: Active Protocol: Document 11/13/18 11:00 AMB (Rec: 11/13/18 11:21 AMB [id number]) Out-Patient Physical Therapy Visit Information Visit Information Visit Type Treatment Note Visit Start Time 11:00 Visit Stop Time 12:00 Total Visit Minutes 60 Visit Number 16 PT-OP-B Current Condition Start: 07/14/18 12:41 Freq: Status: Active Protocol: Document 07/14/18 09:30 AMB (Rec: 07/19/18 07:26 AMB [email or web address]) Current Condition History of Current Condition Onset Date May 2018 Current Complaints Difficulty with gait and balance secondary to Parkinson 's disease History of Current Condition Aster was recently diagnosed with Parkinson's disease, but has noticed some symptoms for years beginning in 2009. He had a good improvement of symptoms with new medication. He is hoping to continue his active lifestyle, but has noticed that he can feel unsteady especially with backing up and turning, and that his left foot tends to drag, especially when he is walking longer distances. He denies any recent falls. Treatment Goals Patient/Caregiver Goals Improve balance/ walking Prior Functional Status Baseline Function- ADL's Independent Baseline Function- Mobility Independent Current Functional Impairments (Reported) Functional Limitations- ADL's Tremor is worse L>R, can limit fine motor activity Functional Limitations- Mobility/Gait Pt notes left leg drags, off balance with turning Personal Factors Other Personal Factors That May Effect Neck and back pain Therapy/Recovery PT-OP-C Subjective Start: 07/14/18 12:41 Freq: Status: Active Protocol: Document 11/13/18 11:00 AMB (Rec: 11/13/18 11:21 AMB [id number]) OP-PT Subjective Patient Comments Patient Comments Pt has been doing his exercises 2x/day and they are going well. PT-OP-D Balance Start: 07/14/18 12:41 Freq: Status: Active Protocol: Document 07/14/18 09:30 AMB (Rec: 07/19/18 07:39 AMB [email or web address]) Balance Tests Romberg Romberg 30 seconds eyes open, unable eyes closed Single Limb Standing Single Limb- Right 1-2 seconds Single Limb- Left 1 second PT-OP-E Functional Tests Start: 07/14/18 12:41 Freq: Status: Active Protocol: Document 07/14/18 09:30 AMB (Rec: 07/19/18 07:36 AMB [email or web address]) Functional Tests Dynamic Gait Index (DGI) Score 15 DGI Impairment Rating 20 to <40% Impaired (Score 15- 19) PT-OP-G Mobility & Gait Start: 07/14/18 12:41 Freq: Status: Active Protocol: Document 07/14/18 09:30 AMB (Rec: 07/19/18 07:36 AMB [email or web address]) OP Gait Assessment Comments Gait Comments Pt ambulates with reduced arm swing on the left. No scuffing of left foot seen in the clinic with short walks. Reduced head rotation when asked for horizontal head turns. PT-OP-H Neuro Start: 07/14/18 12:41 Freq: Status: Active Protocol: Document 07/14/18 09:30 AMB (Rec: 07/19/18 07:36 AMB [email or web address]) Coordination Evaluation Upper Extremity Tests Left Pronation/Supination Test Minimal Impairment PT-OP-J Posture/Palpation/Skin Start: 07/14/18 12:41 Freq: Status: Active Protocol: Document 07/14/18 09:30 AMB (Rec: 07/19/18 07:36 AMB [email or web address]) Posture Evaluation Comments Posture Comments Slightly forward head, rounded shoulders PT-OP-K Range of Motion Start: 07/14/18 12:41 Freq: Status: Active Protocol: Document 07/14/18 09:30 AMB (Rec: 07/19/18 07:36 AMB [email or web address]) Cervical Spine Range of Motion Cervical Spine Active Degrees Testing Position Sitting Rotation Left 60 Rotation Right 60 Shoulder Goniometric Range of Motion Shoulder Right Active Flexion 150 Left Active Flexion 150 PT-OP-M Strength Start: 07/14/18 12:41 Freq: Status: Active Protocol: Document 07/14/18 09:30 AMB (Rec: 07/19/18 07:41 AMB [email or web address]) Hip Strength Hip Manual Muscle Testing Right Flexion (L2) 5 Normal Abduction 5 Normal Left Flexion (L2) 5 Normal Abduction 5 Normal Knee Strength Knee Manual Muscle Testing Right Flexion (S2) 5 Normal Extension (L3) 5 Normal Left Flexion (S2) 5 Normal Extension (L3) 5 Normal Ankle/Foot Strength Ankle and Foot Manual Muscle Testing Right Dorsiflexion (L4) 4+ Good+ Left Dorsiflexion (L4) 4+ Good+ PT-OP-Q Treatments Start: 07/14/18 12:41 Freq: Status: Active Protocol: Document 11/13/18 11:00 AMB (Rec: 11/13/18 15:12 AMB [id number]) Gym Equipment Shuttle Balance 1 Details RED Comments Red- a/p m/l WBOS and stride stance- slow head turns Therapeutic Activity Therapeutic Activity 2 Name sit to stand Comments 10 Gait Training Gait Activity 4 Description BIG walking Comments smooth Neuro Re-Education Treatment Balance Activities 7 Details tandem with head turns Comments diagonal 6 Details 3 step and SLS 2 Details a/p and m/l weight shift with arm swing Reps/Duration 10x2 ea Comments with 1# wrist weights 1 Details backward/forward/side stepping with arm swing Reps/Duration 10x2 ea Other Activities 5 Details sitting to side to side Reps/Duration 10 4 Details seated floor to ceiling Reps/Duration 10 3 Details walking with head turns Comments horizontal, vertical, diagonal PT-OP-T Assessment and Plan Start: 07/14/18 12:41 Freq: Status: Active Protocol: Document 11/13/18 11:00 AMB (Rec: 11/13/18 15:12 AMB [id number]) Physical Therapy Assessment Assessment Summary Assessment Balance continues to be his biggest concern but tolerated walking with head turns better today. Physical Therapy Plan Next Visit Focus/Plan Next Note Type Treatment Note Next Visit Plan Continue with BIG with modifications for making more challenging as tolerated
--- NOTE | 2018-11-14 15:45 | PT.OTN ---
Current Diagnoses Parkinson's disease (11/14/18) Ataxia, unspecified (11/14/18) Physical Therapy Treatment Note PT-OP-A Visit Information Start: 07/14/18 12:41 Freq: Status: Active Protocol: Document 11/14/18 11:00 AMB (Rec: 11/14/18 15:45 AMB [email or web address]) Out-Patient Physical Therapy Visit Information Visit Information Visit Type Treatment Note Visit Start Time 11:00 Visit Stop Time 12:00 Total Visit Minutes 60 Visit Number 17 PT-OP-B Current Condition Start: 07/14/18 12:41 Freq: Status: Active Protocol: Document 07/14/18 09:30 AMB (Rec: 07/19/18 07:26 AMB [email or web address]) Current Condition History of Current Condition Onset Date May 2018 Current Complaints Difficulty with gait and balance secondary to Parkinson 's disease History of Current Condition Aster was recently diagnosed with Parkinson's disease, but has noticed some symptoms for years beginning in 2009. He had a good improvement of symptoms with new medication. He is hoping to continue his active lifestyle, but has noticed that he can feel unsteady especially with backing up and turning, and that his left foot tends to drag, especially when he is walking longer distances. He denies any recent falls. Treatment Goals Patient/Caregiver Goals Improve balance/ walking Prior Functional Status Baseline Function- ADL's Independent Baseline Function- Mobility Independent Current Functional Impairments (Reported) Functional Limitations- ADL's Tremor is worse L>R, can limit fine motor activity Functional Limitations- Mobility/Gait Pt notes left leg drags, off balance with turning Personal Factors Other Personal Factors That May Effect Neck and back pain Therapy/Recovery PT-OP-C Subjective Start: 07/14/18 12:41 Freq: Status: Active Protocol: Document 11/14/18 11:00 AMB (Rec: 11/14/18 15:45 AMB [email or web address]) OP-PT Subjective Patient Comments Patient Comments Pt doing well. Has been working on [employer] walking. PT-OP-D Balance Start: 07/14/18 12:41 Freq: Status: Active Protocol: Document 07/14/18 09:30 AMB (Rec: 07/19/18 07:39 AMB [email or web address]) Balance Tests Romberg Romberg 30 seconds eyes open, unable eyes closed Single Limb Standing Single Limb- Right 1-2 seconds Single Limb- Left 1 second PT-OP-E Functional Tests Start: 07/14/18 12:41 Freq: Status: Active Protocol: Document 07/14/18 09:30 AMB (Rec: 07/19/18 07:36 AMB [email or web address]) Functional Tests Dynamic Gait Index (DGI) Score 15 DGI Impairment Rating 20 to <40% Impaired (Score 15- 19) PT-OP-G Mobility & Gait Start: 07/14/18 12:41 Freq: Status: Active Protocol: Document 07/14/18 09:30 AMB (Rec: 07/19/18 07:36 AMB [email or web address]) OP Gait Assessment Comments Gait Comments Pt ambulates with reduced arm swing on the left. No scuffing of left foot seen in the clinic with short walks. Reduced head rotation when asked for horizontal head turns. PT-OP-H Neuro Start: 07/14/18 12:41 Freq: Status: Active Protocol: Document 07/14/18 09:30 AMB (Rec: 07/19/18 07:36 AMB [email or web address]) Coordination Evaluation Upper Extremity Tests Left Pronation/Supination Test Minimal Impairment PT-OP-J Posture/Palpation/Skin Start: 07/14/18 12:41 Freq: Status: Active Protocol: Document 07/14/18 09:30 AMB (Rec: 07/19/18 07:36 AMB [email or web address]) Posture Evaluation Comments Posture Comments Slightly forward head, rounded shoulders PT-OP-K Range of Motion Start: 07/14/18 12:41 Freq: Status: Active Protocol: Document 07/14/18 09:30 AMB (Rec: 07/19/18 07:36 AMB [email or web address]) Cervical Spine Range of Motion Cervical Spine Active Degrees Testing Position Sitting Rotation Left 60 Rotation Right 60 Shoulder Goniometric Range of Motion Shoulder Right Active Flexion 150 Left Active Flexion 150 PT-OP-M Strength Start: 07/14/18 12:41 Freq: Status: Active Protocol: Document 07/14/18 09:30 AMB (Rec: 07/19/18 07:41 AMB [email or web address]) Hip Strength Hip Manual Muscle Testing Right Flexion (L2) 5 Normal Abduction 5 Normal Left Flexion (L2) 5 Normal Abduction 5 Normal Knee Strength Knee Manual Muscle Testing Right Flexion (S2) 5 Normal Extension (L3) 5 Normal Left Flexion (S2) 5 Normal Extension (L3) 5 Normal Ankle/Foot Strength Ankle and Foot Manual Muscle Testing Right Dorsiflexion (L4) 4+ Good+ Left Dorsiflexion (L4) 4+ Good+ PT-OP-Q Treatments Start: 07/14/18 12:41 Freq: Status: Active Protocol: Document 11/14/18 11:00 AMB (Rec: 11/14/18 15:45 AMB [email or web address]) Gym Equipment Shuttle Balance 1 Details RED Comments Blue- a/p m/l WBOS and stride stance- slow head turns Therapeutic Exercises Supine Exercises 3 Supine Exercise Name hip flexor stretch Reps/Minutes 30x2 2 Supine Exercise Name foam roll Comments into shoulder abduction and flexion, active stretch Standing Exercises 6 Standing Exercise Name pec stretch Reps/Minutes 30x2 Therapeutic Activity Therapeutic Activity 2 Name sit to stand Comments 10, low box Neuro Re-Education Treatment Balance Activities 7 Details tandem with head turns Comments diagonal 6 Details 3 step and SLS 2 Details a/p and m/l weight shift with arm swing Reps/Duration 10x2 ea Comments with 1# wrist weights 1 Details backward/forward/side stepping with arm swing Reps/Duration 10x2 ea Comments #1 wrist weights Other Activities 5 Details sitting to side to side Reps/Duration 10 4 Details seated floor to ceiling Reps/Duration 10 3 Details walking with head turns Comments horizontal, vertical, diagonal PT-OP-T Assessment and Plan Start: 07/14/18 12:41 Freq: Status: Active Protocol: Document 11/14/18 11:00 AMB (Rec: 11/14/18 15:45 AMB [email or web address]) Physical Therapy Assessment Assessment Summary Assessment Waldemar continues to feel tightness in shoulders and a little bit in hip flexors, so gave him stretches in addition to BIG exercises. Physical Therapy Plan Next Visit Focus/Plan Next Note Type Treatment Note Next Visit Plan Continue with BIG with modifications for making more challenging as tolerated
--- NOTE | 2018-11-15 13:02 | PT.OTN ---
Current Diagnoses Parkinson's disease (11/15/18) Ataxia, unspecified (11/15/18) Physical Therapy Treatment Note PT-OP-A Visit Information Start: 07/14/18 12:41 Freq: Status: Active Protocol: Document 11/15/18 11:00 AMB (Rec: 11/15/18 13:02 AMB [email or web address]) Out-Patient Physical Therapy Visit Information Visit Information Visit Type Treatment Note Visit Start Time 11:00 Visit Stop Time 12:00 Total Visit Minutes 60 Visit Number 18 PT-OP-B Current Condition Start: 07/14/18 12:41 Freq: Status: Active Protocol: Document 07/14/18 09:30 AMB (Rec: 07/19/18 07:26 AMB [email or web address]) Current Condition History of Current Condition Onset Date May 2018 Current Complaints Difficulty with gait and balance secondary to Parkinson 's disease History of Current Condition Aster was recently diagnosed with Parkinson's disease, but has noticed some symptoms for years beginning in 2009. He had a good improvement of symptoms with new medication. He is hoping to continue his active lifestyle, but has noticed that he can feel unsteady especially with backing up and turning, and that his left foot tends to drag, especially when he is walking longer distances. He denies any recent falls. Treatment Goals Patient/Caregiver Goals Improve balance/ walking Prior Functional Status Baseline Function- ADL's Independent Baseline Function- Mobility Independent Current Functional Impairments (Reported) Functional Limitations- ADL's Tremor is worse L>R, can limit fine motor activity Functional Limitations- Mobility/Gait Pt notes left leg drags, off balance with turning Personal Factors Other Personal Factors That May Effect Neck and back pain Therapy/Recovery PT-OP-C Subjective Start: 07/14/18 12:41 Freq: Status: Active Protocol: Document 11/15/18 11:00 AMB (Rec: 11/15/18 13:02 AMB [email or web address]) OP-PT Subjective Patient Comments Patient Comments Pt is continuing to do his HEP . PT-OP-D Balance Start: 07/14/18 12:41 Freq: Status: Active Protocol: Document 07/14/18 09:30 AMB (Rec: 07/19/18 07:39 AMB [email or web address]) Balance Tests Romberg Romberg 30 seconds eyes open, unable eyes closed Single Limb Standing Single Limb- Right 1-2 seconds Single Limb- Left 1 second PT-OP-E Functional Tests Start: 07/14/18 12:41 Freq: Status: Active Protocol: Document 07/14/18 09:30 AMB (Rec: 07/19/18 07:36 AMB [email or web address]) Functional Tests Dynamic Gait Index (DGI) Score 15 DGI Impairment Rating 20 to <40% Impaired (Score 15- 19) PT-OP-G Mobility & Gait Start: 07/14/18 12:41 Freq: Status: Active Protocol: Document 07/14/18 09:30 AMB (Rec: 07/19/18 07:36 AMB [email or web address]) OP Gait Assessment Comments Gait Comments Pt ambulates with reduced arm swing on the left. No scuffing of left foot seen in the clinic with short walks. Reduced head rotation when asked for horizontal head turns. PT-OP-H Neuro Start: 07/14/18 12:41 Freq: Status: Active Protocol: Document 07/14/18 09:30 AMB (Rec: 07/19/18 07:36 AMB [email or web address]) Coordination Evaluation Upper Extremity Tests Left Pronation/Supination Test Minimal Impairment PT-OP-J Posture/Palpation/Skin Start: 07/14/18 12:41 Freq: Status: Active Protocol: Document 07/14/18 09:30 AMB (Rec: 07/19/18 07:36 AMB [email or web address]) Posture Evaluation Comments Posture Comments Slightly forward head, rounded shoulders PT-OP-K Range of Motion Start: 07/14/18 12:41 Freq: Status: Active Protocol: Document 07/14/18 09:30 AMB (Rec: 07/19/18 07:36 AMB [email or web address]) Cervical Spine Range of Motion Cervical Spine Active Degrees Testing Position Sitting Rotation Left 60 Rotation Right 60 Shoulder Goniometric Range of Motion Shoulder Right Active Flexion 150 Left Active Flexion 150 PT-OP-M Strength Start: 07/14/18 12:41 Freq: Status: Active Protocol: Document 07/14/18 09:30 AMB (Rec: 07/19/18 07:41 AMB [email or web address]) Hip Strength Hip Manual Muscle Testing Right Flexion (L2) 5 Normal Abduction 5 Normal Left Flexion (L2) 5 Normal Abduction 5 Normal Knee Strength Knee Manual Muscle Testing Right Flexion (S2) 5 Normal Extension (L3) 5 Normal Left Flexion (S2) 5 Normal Extension (L3) 5 Normal Ankle/Foot Strength Ankle and Foot Manual Muscle Testing Right Dorsiflexion (L4) 4+ Good+ Left Dorsiflexion (L4) 4+ Good+ PT-OP-Q Treatments Start: 07/14/18 12:41 Freq: Status: Active Protocol: Document 11/15/18 11:00 AMB (Rec: 11/15/18 13:02 AMB [email or web address]) Therapeutic Exercises Supine Exercises 3 Supine Exercise Name hip flexor stretch Reps/Minutes 30x2 Therapeutic Activity Therapeutic Activity 2 Name sit to stand Comments 10, 12 seat Gait Training Gait Activity 4 Description BIG walking Comments smooth Neuro Re-Education Treatment Balance Activities 7 Details tandem with head turns Comments diagonal 6 Details 3 step and SLS 5 Details 3 step and bow with head turn 4 Details foam single leg balance 2 Details a/p and m/l weight shift with arm swing Reps/Duration 10x2 ea Comments with 1# wrist weights 1 Details backward/forward/side stepping with arm swing Reps/Duration 10x2 ea Comments #2 wrist weights Other Activities 5 Details sitting to side to side Reps/Duration 10 4 Details seated floor to ceiling Reps/Duration 10 3 Details walking with head turns Comments horizontal, vertical, diagonal PT-OP-T Assessment and Plan Start: 07/14/18 12:41 Freq: Status: Active Protocol: Document 11/15/18 11:00 AMB (Rec: 11/15/18 13:02 AMB [email or web address]) Physical Therapy Assessment Assessment Summary Assessment Pt is continuing to do well, tolerated increased resistance of wrist weights well. Physical Therapy Plan Next Visit Focus/Plan Next Note Type Treatment Note Next Visit Plan Continue with BIG with modifications for making more challenging as tolerated
--- NOTE | 2018-11-16 12:52 | PT.OTN ---
Current Diagnoses Parkinson's disease (11/16/18) Ataxia, unspecified (11/16/18) Physical Therapy Treatment Note PT-OP-A Visit Information Start: 07/14/18 12:41 Freq: Status: Active Protocol: Document 11/16/18 11:00 AMB (Rec: 11/16/18 12:52 AMB [email or web address]) Out-Patient Physical Therapy Visit Information Visit Information Visit Type Treatment Note Visit Start Time 11:00 Visit Stop Time 12:00 Total Visit Minutes 60 Visit Number 19 PT-OP-B Current Condition Start: 07/14/18 12:41 Freq: Status: Active Protocol: Document 07/14/18 09:30 AMB (Rec: 07/19/18 07:26 AMB [email or web address]) Current Condition History of Current Condition Onset Date May 2018 Current Complaints Difficulty with gait and balance secondary to Parkinson 's disease History of Current Condition Aster was recently diagnosed with Parkinson's disease, but has noticed some symptoms for years beginning in 2009. He had a good improvement of symptoms with new medication. He is hoping to continue his active lifestyle, but has noticed that he can feel unsteady especially with backing up and turning, and that his left foot tends to drag, especially when he is walking longer distances. He denies any recent falls. Treatment Goals Patient/Caregiver Goals Improve balance/ walking Prior Functional Status Baseline Function- ADL's Independent Baseline Function- Mobility Independent Current Functional Impairments (Reported) Functional Limitations- ADL's Tremor is worse L>R, can limit fine motor activity Functional Limitations- Mobility/Gait Pt notes left leg drags, off balance with turning Personal Factors Other Personal Factors That May Effect Neck and back pain Therapy/Recovery PT-OP-C Subjective Start: 07/14/18 12:41 Freq: Status: Active Protocol: Document 11/16/18 11:00 AMB (Rec: 11/16/18 12:52 AMB [email or web address]) OP-PT Subjective Patient Comments Patient Comments Pt is doing well, tolerated increase in resistance without increased soreness. PT-OP-D Balance Start: 07/14/18 12:41 Freq: Status: Active Protocol: Document 07/14/18 09:30 AMB (Rec: 07/19/18 07:39 AMB [email or web address]) Balance Tests Romberg Romberg 30 seconds eyes open, unable eyes closed Single Limb Standing Single Limb- Right 1-2 seconds Single Limb- Left 1 second PT-OP-E Functional Tests Start: 07/14/18 12:41 Freq: Status: Active Protocol: Document 07/14/18 09:30 AMB (Rec: 07/19/18 07:36 AMB [email or web address]) Functional Tests Dynamic Gait Index (DGI) Score 15 DGI Impairment Rating 20 to <40% Impaired (Score 15- 19) PT-OP-G Mobility & Gait Start: 07/14/18 12:41 Freq: Status: Active Protocol: Document 07/14/18 09:30 AMB (Rec: 07/19/18 07:36 AMB [email or web address]) OP Gait Assessment Comments Gait Comments Pt ambulates with reduced arm swing on the left. No scuffing of left foot seen in the clinic with short walks. Reduced head rotation when asked for horizontal head turns. PT-OP-H Neuro Start: 07/14/18 12:41 Freq: Status: Active Protocol: Document 07/14/18 09:30 AMB (Rec: 07/19/18 07:36 AMB [email or web address]) Coordination Evaluation Upper Extremity Tests Left Pronation/Supination Test Minimal Impairment PT-OP-J Posture/Palpation/Skin Start: 07/14/18 12:41 Freq: Status: Active Protocol: Document 07/14/18 09:30 AMB (Rec: 07/19/18 07:36 AMB [email or web address]) Posture Evaluation Comments Posture Comments Slightly forward head, rounded shoulders PT-OP-K Range of Motion Start: 07/14/18 12:41 Freq: Status: Active Protocol: Document 07/14/18 09:30 AMB (Rec: 07/19/18 07:36 AMB [email or web address]) Cervical Spine Range of Motion Cervical Spine Active Degrees Testing Position Sitting Rotation Left 60 Rotation Right 60 Shoulder Goniometric Range of Motion Shoulder Right Active Flexion 150 Left Active Flexion 150 PT-OP-M Strength Start: 07/14/18 12:41 Freq: Status: Active Protocol: Document 07/14/18 09:30 AMB (Rec: 07/19/18 07:41 AMB [email or web address]) Hip Strength Hip Manual Muscle Testing Right Flexion (L2) 5 Normal Abduction 5 Normal Left Flexion (L2) 5 Normal Abduction 5 Normal Knee Strength Knee Manual Muscle Testing Right Flexion (S2) 5 Normal Extension (L3) 5 Normal Left Flexion (S2) 5 Normal Extension (L3) 5 Normal Ankle/Foot Strength Ankle and Foot Manual Muscle Testing Right Dorsiflexion (L4) 4+ Good+ Left Dorsiflexion (L4) 4+ Good+ PT-OP-Q Treatments Start: 07/14/18 12:41 Freq: Status: Active Protocol: Document 11/16/18 11:00 AMB (Rec: 11/16/18 12:52 AMB [email or web address]) Gait Training Gait Activity 4 Description BIG walking Comments smooth; 6MWT 1502 Neuro Re-Education Treatment Balance Activities 6 Details 3 step and SLS Comments added horizontal head turns 5 Details 3 step and bow with head turn 4 Details foam single leg balance 2 Details a/p and m/l weight shift with arm swing Reps/Duration 10x2 ea Comments with 1# wrist weights 1 Details backward/forward/side stepping with arm swing Reps/Duration 10x2 ea Comments #2 wrist weights Other Activities 5 Details sitting to side to side Reps/Duration 10 4 Details seated floor to ceiling Reps/Duration 10 3 Details walking with head turns Comments horizontal, vertical, diagonal PT-OP-T Assessment and Plan Start: 07/14/18 12:41 Freq: Status: Active Protocol: Document 11/16/18 11:00 AMB (Rec: 11/16/18 12:52 AMB [email or web address]) Physical Therapy Assessment Assessment Summary Assessment Pt continues to be motivated, hoping to increase his 6MWT time. Walked 1502 during 6MWT today. Physical Therapy Plan Next Visit Focus/Plan Next Note Type Treatment Note Next Visit Plan Continue with BIG with modifications for making more challenging as tolerated
--- NOTE | 2018-11-20 12:54 | PT.OTN ---
Current Diagnoses Parkinson's disease (11/20/18) Ataxia, unspecified (11/20/18) Physical Therapy Treatment Note PT-OP-A Visit Information Start: 07/14/18 12:41 Freq: Status: Active Protocol: Document 11/20/18 11:00 AMB (Rec: 11/20/18 12:53 AMB [email or web address]) Out-Patient Physical Therapy Visit Information Visit Information Visit Type Treatment Note Visit Start Time 11:00 Visit Stop Time 12:00 Total Visit Minutes 60 Visit Number 20 PT-OP-B Current Condition Start: 07/14/18 12:41 Freq: Status: Active Protocol: Document 07/14/18 09:30 AMB (Rec: 07/19/18 07:26 AMB [email or web address]) Current Condition History of Current Condition Onset Date May 2018 Current Complaints Difficulty with gait and balance secondary to Parkinson 's disease History of Current Condition Aster was recently diagnosed with Parkinson's disease, but has noticed some symptoms for years beginning in 2009. He had a good improvement of symptoms with new medication. He is hoping to continue his active lifestyle, but has noticed that he can feel unsteady especially with backing up and turning, and that his left foot tends to drag, especially when he is walking longer distances. He denies any recent falls. Treatment Goals Patient/Caregiver Goals Improve balance/ walking Prior Functional Status Baseline Function- ADL's Independent Baseline Function- Mobility Independent Current Functional Impairments (Reported) Functional Limitations- ADL's Tremor is worse L>R, can limit fine motor activity Functional Limitations- Mobility/Gait Pt notes left leg drags, off balance with turning Personal Factors Other Personal Factors That May Effect Neck and back pain Therapy/Recovery PT-OP-C Subjective Start: 07/14/18 12:41 Freq: Status: Active Protocol: Document 11/20/18 11:00 AMB (Rec: 11/20/18 12:53 AMB [email or web address]) OP-PT Subjective Patient Comments Patient Comments Pt walked over the weekend and heel was a limiting factor but able to keep up with family just fine. PT-OP-D Balance Start: 07/14/18 12:41 Freq: Status: Active Protocol: Document 07/14/18 09:30 AMB (Rec: 07/19/18 07:39 AMB [email or web address]) Balance Tests Romberg Romberg 30 seconds eyes open, unable eyes closed Single Limb Standing Single Limb- Right 1-2 seconds Single Limb- Left 1 second PT-OP-E Functional Tests Start: 07/14/18 12:41 Freq: Status: Active Protocol: Document 07/14/18 09:30 AMB (Rec: 07/19/18 07:36 AMB [email or web address]) Functional Tests Dynamic Gait Index (DGI) Score 15 DGI Impairment Rating 20 to <40% Impaired (Score 15- 19) PT-OP-G Mobility & Gait Start: 07/14/18 12:41 Freq: Status: Active Protocol: Document 07/14/18 09:30 AMB (Rec: 07/19/18 07:36 AMB [email or web address]) OP Gait Assessment Comments Gait Comments Pt ambulates with reduced arm swing on the left. No scuffing of left foot seen in the clinic with short walks. Reduced head rotation when asked for horizontal head turns. PT-OP-H Neuro Start: 07/14/18 12:41 Freq: Status: Active Protocol: Document 07/14/18 09:30 AMB (Rec: 07/19/18 07:36 AMB [email or web address]) Coordination Evaluation Upper Extremity Tests Left Pronation/Supination Test Minimal Impairment PT-OP-J Posture/Palpation/Skin Start: 07/14/18 12:41 Freq: Status: Active Protocol: Document 07/14/18 09:30 AMB (Rec: 07/19/18 07:36 AMB [email or web address]) Posture Evaluation Comments Posture Comments Slightly forward head, rounded shoulders PT-OP-K Range of Motion Start: 07/14/18 12:41 Freq: Status: Active Protocol: Document 07/14/18 09:30 AMB (Rec: 07/19/18 07:36 AMB [email or web address]) Cervical Spine Range of Motion Cervical Spine Active Degrees Testing Position Sitting Rotation Left 60 Rotation Right 60 Shoulder Goniometric Range of Motion Shoulder Right Active Flexion 150 Left Active Flexion 150 PT-OP-M Strength Start: 07/14/18 12:41 Freq: Status: Active Protocol: Document 07/14/18 09:30 AMB (Rec: 07/19/18 07:41 AMB [email or web address]) Hip Strength Hip Manual Muscle Testing Right Flexion (L2) 5 Normal Abduction 5 Normal Left Flexion (L2) 5 Normal Abduction 5 Normal Knee Strength Knee Manual Muscle Testing Right Flexion (S2) 5 Normal Extension (L3) 5 Normal Left Flexion (S2) 5 Normal Extension (L3) 5 Normal Ankle/Foot Strength Ankle and Foot Manual Muscle Testing Right Dorsiflexion (L4) 4+ Good+ Left Dorsiflexion (L4) 4+ Good+ PT-OP-Q Treatments Start: 07/14/18 12:41 Freq: Status: Active Protocol: Document 11/20/18 11:00 AMB (Rec: 11/20/18 12:53 AMB [email or web address]) Gym Equipment Shuttle Balance 1 Details RED Reps/Duration modified tandem Comments a/p: EO head turns m/l: WBOS EO vertical head turns Gait Training Gait Activity 4 Description BIG walking Comments smooth; 6MWT 1960 Neuro Re-Education Treatment Balance Activities 4 Details bosu ball NBOS balance 2 Details a/p and m/l weight shift with arm swing Reps/Duration 10x2 ea Comments with 1# wrist weights 1 Details backward/forward/side stepping with arm swing Reps/Duration 10x2 ea Comments #2 wrist weights Other Activities 5 Details sitting to side to side Reps/Duration 10 4 Details seated floor to ceiling Reps/Duration 10 PT-OP-T Assessment and Plan Start: 07/14/18 12:41 Freq: Status: Active Protocol: Document 11/20/18 11:00 AMB (Rec: 11/20/18 12:53 AMB [email or web address]) Physical Therapy Assessment Assessment Summary Assessment 6MWT was 1960 today, pt very motivated and performed above average for age/gender. Did not report heel pain during testing. Physical Therapy Plan Next Visit Focus/Plan Next Note Type Treatment Note Next Visit Plan Continue with BIG with modifications for making more challenging as tolerated
--- NOTE | 2018-11-21 14:58 | PT.OTN ---
Current Diagnoses Parkinson's disease (11/21/18) Ataxia, unspecified (11/21/18) Physical Therapy Treatment Note PT-OP-A Visit Information Start: 07/14/18 12:41 Freq: Status: Active Protocol: Document 11/21/18 11:00 AMB (Rec: 11/21/18 13:02 AMB [email or web address]) Out-Patient Physical Therapy Visit Information Visit Information Visit Type Treatment Note Visit Start Time 11:00 Visit Stop Time 12:00 Total Visit Minutes 60 Visit Number 21 PT-OP-B Current Condition Start: 07/14/18 12:41 Freq: Status: Active Protocol: Document 07/14/18 09:30 AMB (Rec: 07/19/18 07:26 AMB [email or web address]) Current Condition History of Current Condition Onset Date May 2018 Current Complaints Difficulty with gait and balance secondary to Parkinson 's disease History of Current Condition Aster was recently diagnosed with Parkinson's disease, but has noticed some symptoms for years beginning in 2009. He had a good improvement of symptoms with new medication. He is hoping to continue his active lifestyle, but has noticed that he can feel unsteady especially with backing up and turning, and that his left foot tends to drag, especially when he is walking longer distances. He denies any recent falls. Treatment Goals Patient/Caregiver Goals Improve balance/ walking Prior Functional Status Baseline Function- ADL's Independent Baseline Function- Mobility Independent Current Functional Impairments (Reported) Functional Limitations- ADL's Tremor is worse L>R, can limit fine motor activity Functional Limitations- Mobility/Gait Pt notes left leg drags, off balance with turning Personal Factors Other Personal Factors That May Effect Neck and back pain Therapy/Recovery PT-OP-C Subjective Start: 07/14/18 12:41 Freq: Status: Active Protocol: Document 11/21/18 11:00 AMB (Rec: 11/21/18 13:02 AMB [email or web address]) OP-PT Subjective Patient Comments Patient Comments Pt is doing well. Installed lights on the patio, went up and down the ladder without issue. PT-OP-D Balance Start: 07/14/18 12:41 Freq: Status: Active Protocol: Document 07/14/18 09:30 AMB (Rec: 07/19/18 07:39 AMB [email or web address]) Balance Tests Romberg Romberg 30 seconds eyes open, unable eyes closed Single Limb Standing Single Limb- Right 1-2 seconds Single Limb- Left 1 second PT-OP-E Functional Tests Start: 07/14/18 12:41 Freq: Status: Active Protocol: Document 07/14/18 09:30 AMB (Rec: 07/19/18 07:36 AMB [email or web address]) Functional Tests Dynamic Gait Index (DGI) Score 15 DGI Impairment Rating 20 to <40% Impaired (Score 15- 19) PT-OP-G Mobility & Gait Start: 07/14/18 12:41 Freq: Status: Active Protocol: Document 07/14/18 09:30 AMB (Rec: 07/19/18 07:36 AMB [email or web address]) OP Gait Assessment Comments Gait Comments Pt ambulates with reduced arm swing on the left. No scuffing of left foot seen in the clinic with short walks. Reduced head rotation when asked for horizontal head turns. PT-OP-H Neuro Start: 07/14/18 12:41 Freq: Status: Active Protocol: Document 07/14/18 09:30 AMB (Rec: 07/19/18 07:36 AMB [email or web address]) Coordination Evaluation Upper Extremity Tests Left Pronation/Supination Test Minimal Impairment PT-OP-J Posture/Palpation/Skin Start: 07/14/18 12:41 Freq: Status: Active Protocol: Document 07/14/18 09:30 AMB (Rec: 07/19/18 07:36 AMB [email or web address]) Posture Evaluation Comments Posture Comments Slightly forward head, rounded shoulders PT-OP-K Range of Motion Start: 07/14/18 12:41 Freq: Status: Active Protocol: Document 07/14/18 09:30 AMB (Rec: 07/19/18 07:36 AMB [email or web address]) Cervical Spine Range of Motion Cervical Spine Active Degrees Testing Position Sitting Rotation Left 60 Rotation Right 60 Shoulder Goniometric Range of Motion Shoulder Right Active Flexion 150 Left Active Flexion 150 PT-OP-M Strength Start: 07/14/18 12:41 Freq: Status: Active Protocol: Document 07/14/18 09:30 AMB (Rec: 07/19/18 07:41 AMB [email or web address]) Hip Strength Hip Manual Muscle Testing Right Flexion (L2) 5 Normal Abduction 5 Normal Left Flexion (L2) 5 Normal Abduction 5 Normal Knee Strength Knee Manual Muscle Testing Right Flexion (S2) 5 Normal Extension (L3) 5 Normal Left Flexion (S2) 5 Normal Extension (L3) 5 Normal Ankle/Foot Strength Ankle and Foot Manual Muscle Testing Right Dorsiflexion (L4) 4+ Good+ Left Dorsiflexion (L4) 4+ Good+ PT-OP-Q Treatments Start: 07/14/18 12:41 Freq: Status: Active Protocol: Document 11/21/18 11:00 AMB (Rec: 11/21/18 14:58 AMB [email or web address]) Gym Equipment Shuttle Balance 1 Details RED Reps/Duration modified tandem Comments a/p: EO head turns m/l: WBOS EO vertical head turns Therapeutic Activity Therapeutic Activity 2 Name sit to stand Comments 10, 12 seat Neuro Re-Education Treatment Balance Activities 7 Details tandem with head turns Comments diagonal 6 Details 3 step and SLS Comments added horizontal head turns 5 Details 3 step and bow with head turn 2 Details a/p and m/l weight shift with arm swing Reps/Duration 10x2 ea Comments with 1# wrist weights 1 Details backward/forward/side stepping with arm swing Reps/Duration 10x2 ea Comments #2 wrist weights Other Activities 5 Details sitting to side to side Reps/Duration 10 4 Details seated floor to ceiling Reps/Duration 10 3 Details walking with head turns Comments horizontal, vertical, diagonal PT-OP-T Assessment and Plan Start: 07/14/18 12:41 Freq: Status: Active Protocol: Document 11/21/18 11:00 AMB (Rec: 11/21/18 14:58 AMB [email or web address]) Physical Therapy Assessment Assessment Summary Assessment Pt feels improved balance without orthotics and no real increase in heel pain. Continues to have worse balance on the R than the L. Physical Therapy Plan Next Visit Focus/Plan Next Note Type Treatment Note Next Visit Plan Continue with BIG with modifications for making more challenging as tolerated
--- NOTE | 2018-11-22 15:52 | PT.OTN ---
Current Diagnoses Parkinson's disease (11/22/18) Ataxia, unspecified (11/22/18) Physical Therapy Treatment Note PT-OP-A Visit Information Start: 07/14/18 12:41 Freq: Status: Active Protocol: Document 11/22/18 11:00 AMB (Rec: 11/22/18 13:01 AMB [email or web address]) Out-Patient Physical Therapy Visit Information Visit Information Visit Type Treatment Note Visit Start Time 11:00 Visit Stop Time 12:00 Total Visit Minutes 60 Visit Number 22 PT-OP-B Current Condition Start: 07/14/18 12:41 Freq: Status: Active Protocol: Document 07/14/18 09:30 AMB (Rec: 07/19/18 07:26 AMB [email or web address]) Current Condition History of Current Condition Onset Date May 2018 Current Complaints Difficulty with gait and balance secondary to Parkinson 's disease History of Current Condition Aster was recently diagnosed with Parkinson's disease, but has noticed some symptoms for years beginning in 2009. He had a good improvement of symptoms with new medication. He is hoping to continue his active lifestyle, but has noticed that he can feel unsteady especially with backing up and turning, and that his left foot tends to drag, especially when he is walking longer distances. He denies any recent falls. Treatment Goals Patient/Caregiver Goals Improve balance/ walking Prior Functional Status Baseline Function- ADL's Independent Baseline Function- Mobility Independent Current Functional Impairments (Reported) Functional Limitations- ADL's Tremor is worse L>R, can limit fine motor activity Functional Limitations- Mobility/Gait Pt notes left leg drags, off balance with turning Personal Factors Other Personal Factors That May Effect Neck and back pain Therapy/Recovery PT-OP-C Subjective Start: 07/14/18 12:41 Freq: Status: Active Protocol: Document 11/22/18 11:00 AMB (Rec: 11/22/18 13:01 AMB [email or web address]) OP-PT Subjective Patient Comments Patient Comments Pt is doing well. PT-OP-D Balance Start: 07/14/18 12:41 Freq: Status: Active Protocol: Document 07/14/18 09:30 AMB (Rec: 07/19/18 07:39 AMB [email or web address]) Balance Tests Romberg Romberg 30 seconds eyes open, unable eyes closed Single Limb Standing Single Limb- Right 1-2 seconds Single Limb- Left 1 second PT-OP-E Functional Tests Start: 07/14/18 12:41 Freq: Status: Active Protocol: Document 07/14/18 09:30 AMB (Rec: 07/19/18 07:36 AMB [email or web address]) Functional Tests Dynamic Gait Index (DGI) Score 15 DGI Impairment Rating 20 to <40% Impaired (Score 15- 19) PT-OP-G Mobility & Gait Start: 07/14/18 12:41 Freq: Status: Active Protocol: Document 07/14/18 09:30 AMB (Rec: 07/19/18 07:36 AMB [email or web address]) OP Gait Assessment Comments Gait Comments Pt ambulates with reduced arm swing on the left. No scuffing of left foot seen in the clinic with short walks. Reduced head rotation when asked for horizontal head turns. PT-OP-H Neuro Start: 07/14/18 12:41 Freq: Status: Active Protocol: Document 07/14/18 09:30 AMB (Rec: 07/19/18 07:36 AMB [email or web address]) Coordination Evaluation Upper Extremity Tests Left Pronation/Supination Test Minimal Impairment PT-OP-J Posture/Palpation/Skin Start: 07/14/18 12:41 Freq: Status: Active Protocol: Document 07/14/18 09:30 AMB (Rec: 07/19/18 07:36 AMB [email or web address]) Posture Evaluation Comments Posture Comments Slightly forward head, rounded shoulders PT-OP-K Range of Motion Start: 07/14/18 12:41 Freq: Status: Active Protocol: Document 07/14/18 09:30 AMB (Rec: 07/19/18 07:36 AMB [email or web address]) Cervical Spine Range of Motion Cervical Spine Active Degrees Testing Position Sitting Rotation Left 60 Rotation Right 60 Shoulder Goniometric Range of Motion Shoulder Right Active Flexion 150 Left Active Flexion 150 PT-OP-M Strength Start: 07/14/18 12:41 Freq: Status: Active Protocol: Document 07/14/18 09:30 AMB (Rec: 07/19/18 07:41 AMB [email or web address]) Hip Strength Hip Manual Muscle Testing Right Flexion (L2) 5 Normal Abduction 5 Normal Left Flexion (L2) 5 Normal Abduction 5 Normal Knee Strength Knee Manual Muscle Testing Right Flexion (S2) 5 Normal Extension (L3) 5 Normal Left Flexion (S2) 5 Normal Extension (L3) 5 Normal Ankle/Foot Strength Ankle and Foot Manual Muscle Testing Right Dorsiflexion (L4) 4+ Good+ Left Dorsiflexion (L4) 4+ Good+ PT-OP-Q Treatments Start: 07/14/18 12:41 Freq: Status: Active Protocol: Document 11/22/18 11:00 AMB (Rec: 11/22/18 15:52 AMB [email or web address]) Therapeutic Activity Therapeutic Activity 2 Name sit to stand Comments 10, 12 seat Neuro Re-Education Treatment Balance Activities 7 Details tandem with head turns Comments diagonal 6 Details 3 step and SLS Comments added horizontal head turns 5 Details 3 step and bow with head turn 2 Details a/p and m/l weight shift with arm swing Reps/Duration 10x2 ea Comments with 1# wrist weights 1 Details backward/forward/side stepping with arm swing Reps/Duration 10x2 ea Comments #2 wrist weights Other Activities 5 Details sitting to side to side Reps/Duration 10 Comments with 2# weights 4 Details seated floor to ceiling Reps/Duration 10 3 Details walking with head turns Comments horizontal, vertical, diagonal PT-OP-T Assessment and Plan Start: 07/14/18 12:41 Freq: Status: Active Protocol: Document 11/22/18 11:00 AMB (Rec: 11/22/18 15:52 AMB [email or web address]) Physical Therapy Assessment Assessment Summary Assessment More difficulty with single leg stance activities today. Physical Therapy Plan Next Visit Focus/Plan Next Note Type Treatment Note Next Visit Plan Continue with BIG with modifications for making more challenging as tolerated
--- NOTE | 2018-11-23 12:59 | PT.OTN ---
Current Diagnoses Parkinson's disease (11/23/18) Ataxia, unspecified (11/23/18) Physical Therapy Treatment Note PT-OP-A Visit Information Start: 07/14/18 12:41 Freq: Status: Active Protocol: Document 11/23/18 11:00 AMB (Rec: 11/23/18 12:59 AMB [email or web address]) Out-Patient Physical Therapy Visit Information Visit Information Visit Type Treatment Note Visit Start Time 11:00 Visit Stop Time 12:00 Total Visit Minutes 60 Visit Number 23 PT-OP-B Current Condition Start: 07/14/18 12:41 Freq: Status: Active Protocol: Document 07/14/18 09:30 AMB (Rec: 07/19/18 07:26 AMB [email or web address]) Current Condition History of Current Condition Onset Date May 2018 Current Complaints Difficulty with gait and balance secondary to Parkinson 's disease History of Current Condition Aster was recently diagnosed with Parkinson's disease, but has noticed some symptoms for years beginning in 2009. He had a good improvement of symptoms with new medication. He is hoping to continue his active lifestyle, but has noticed that he can feel unsteady especially with backing up and turning, and that his left foot tends to drag, especially when he is walking longer distances. He denies any recent falls. Treatment Goals Patient/Caregiver Goals Improve balance/ walking Prior Functional Status Baseline Function- ADL's Independent Baseline Function- Mobility Independent Current Functional Impairments (Reported) Functional Limitations- ADL's Tremor is worse L>R, can limit fine motor activity Functional Limitations- Mobility/Gait Pt notes left leg drags, off balance with turning Personal Factors Other Personal Factors That May Effect Neck and back pain Therapy/Recovery PT-OP-C Subjective Start: 07/14/18 12:41 Freq: Status: Active Protocol: Document 11/23/18 11:00 AMB (Rec: 11/23/18 12:59 AMB [email or web address]) OP-PT Subjective Patient Comments Patient Comments Pt agrees that has has improved significantly, but knows he will have to continue with the exercises pre press proofer. PT-OP-D Balance Start: 07/14/18 12:41 Freq: Status: Active Protocol: Document 07/14/18 09:30 AMB (Rec: 07/19/18 07:39 AMB [email or web address]) Balance Tests Romberg Romberg 30 seconds eyes open, unable eyes closed Single Limb Standing Single Limb- Right 1-2 seconds Single Limb- Left 1 second PT-OP-E Functional Tests Start: 07/14/18 12:41 Freq: Status: Active Protocol: Document 11/23/18 11:00 AMB (Rec: 11/23/18 12:59 AMB [email or web address]) Functional Tests Dynamic Gait Index (DGI) Score PT-OP-G Mobility & Gait Start: 07/14/18 12:41 Freq: Status: Active Protocol: Document 07/14/18 09:30 AMB (Rec: 07/19/18 07:36 AMB [email or web address]) OP Gait Assessment Comments Gait Comments Pt ambulates with reduced arm swing on the left. No scuffing of left foot seen in the clinic with short walks. Reduced head rotation when asked for horizontal head turns. PT-OP-H Neuro Start: 07/14/18 12:41 Freq: Status: Active Protocol: Document 07/14/18 09:30 AMB (Rec: 07/19/18 07:36 AMB [email or web address]) Coordination Evaluation Upper Extremity Tests Left Pronation/Supination Test Minimal Impairment PT-OP-J Posture/Palpation/Skin Start: 07/14/18 12:41 Freq: Status: Active Protocol: Document 07/14/18 09:30 AMB (Rec: 07/19/18 07:36 AMB [email or web address]) Posture Evaluation Comments Posture Comments Slightly forward head, rounded shoulders PT-OP-K Range of Motion Start: 07/14/18 12:41 Freq: Status: Active Protocol: Document 07/14/18 09:30 AMB (Rec: 07/19/18 07:36 AMB [email or web address]) Cervical Spine Range of Motion Cervical Spine Active Degrees Testing Position Sitting Rotation Left 60 Rotation Right 60 Shoulder Goniometric Range of Motion Shoulder Right Active Flexion 150 Left Active Flexion 150 PT-OP-M Strength Start: 07/14/18 12:41 Freq: Status: Active Protocol: Document 07/14/18 09:30 AMB (Rec: 07/19/18 07:41 AMB [email or web address]) Hip Strength Hip Manual Muscle Testing Right Flexion (L2) 5 Normal Abduction 5 Normal Left Flexion (L2) 5 Normal Abduction 5 Normal Knee Strength Knee Manual Muscle Testing Right Flexion (S2) 5 Normal Extension (L3) 5 Normal Left Flexion (S2) 5 Normal Extension (L3) 5 Normal Ankle/Foot Strength Ankle and Foot Manual Muscle Testing Right Dorsiflexion (L4) 4+ Good+ Left Dorsiflexion (L4) 4+ Good+ PT-OP-Q Treatments Start: 07/14/18 12:41 Freq: Status: Active Protocol: Document 11/23/18 11:00 AMB (Rec: 11/23/18 12:59 AMB [email or web address]) Neuro Re-Education Treatment Balance Activities 7 Details tandem with head turns Comments diagonal 6 Details 3 step and SLS Comments added horizontal head turns 5 Details 3 step and bow with head turn 4 Details foam balance modified tandem Comments EC HT 3 Details tilt board Comments horizontal and vertical head turns. 2 Details a/p and m/l weight shift with arm swing Reps/Duration 10x2 ea Comments with 2# wrist weights 1 Details backward/forward/side stepping with arm swing Reps/Duration 10x2 ea Comments #2 wrist weights Other Activities 5 Details sitting to side to side Reps/Duration 10 Comments with 2# weights 4 Details seated floor to ceiling Reps/Duration 10 3 Details walking with head turns Comments horizontal, vertical, diagonal PT-OP-T Assessment and Plan Start: 07/14/18 12:41 Freq: Status: Active Protocol: Document 11/23/18 11:00 AMB (Rec: 11/23/18 12:59 AMB [email or web address]) Physical Therapy Assessment Goals Two Impairment Gait Short Term Goal (STG) Aster will improve his DGI score to 20/24 to show decreased risk of falling. STG Duration MET Cryogenics Repairer Goal (LTG) Aster will improve his gait so that he can walk with head turns without loss of balance or veering. LTG Duration MET One Impairment Balance Short Term Goal (STG) Aster will improve his single leg stance, so that he can balance on one leg for 5 seconds with eyes open. STG Duration MET Care Home Goal (LTG) Aster will make a sharp turn while walking without loss of balance. LTG Duration MET Assessment Summary Assessment Great improvement with DGI and single leg stance balance, head turns are still challenging but much improved. Physical Therapy Plan Next Visit Focus/Plan Next Note Type Discharge Summary
--- NOTE | 2018-11-27 12:00 | PT.OTN ---
Current Diagnoses Parkinson's disease (11/27/18) Ataxia, unspecified (11/27/18) Physical Therapy Treatment Note PT-OP-A Visit Information Start: 07/14/18 12:41 Freq: Status: Active Protocol: Document 11/27/18 11:00 AMB (Rec: 11/27/18 15:42 AMB [email or web address]) Out-Patient Physical Therapy Visit Information Visit Information Visit Type Treatment Note Visit Start Time 11:00 Visit Stop Time 12:00 Total Visit Minutes 60 Visit Number 24 PT-OP-B Current Condition Start: 07/14/18 12:41 Freq: Status: Active Protocol: Document 07/14/18 09:30 AMB (Rec: 07/19/18 07:26 AMB [email or web address]) Current Condition History of Current Condition Onset Date May 2018 Current Complaints Difficulty with gait and balance secondary to Parkinson 's disease History of Current Condition Aster was recently diagnosed with Parkinson's disease, but has noticed some symptoms for years beginning in 2009. He had a good improvement of symptoms with new medication. He is hoping to continue his active lifestyle, but has noticed that he can feel unsteady especially with backing up and turning, and that his left foot tends to drag, especially when he is walking longer distances. He denies any recent falls. Treatment Goals Patient/Caregiver Goals Improve balance/ walking Prior Functional Status Baseline Function- ADL's Independent Baseline Function- Mobility Independent Current Functional Impairments (Reported) Functional Limitations- ADL's Tremor is worse L>R, can limit fine motor activity Functional Limitations- Mobility/Gait Pt notes left leg drags, off balance with turning Personal Factors Other Personal Factors That May Effect Neck and back pain Therapy/Recovery PT-OP-C Subjective Start: 07/14/18 12:41 Freq: Status: Active Protocol: Document 11/27/18 11:00 AMB (Rec: 11/27/18 15:42 AMB [email or web address]) OP-PT Subjective Patient Comments Patient Comments Pt is doing well, will be continuing with exercises for the correction. PT-OP-D Balance Start: 07/14/18 12:41 Freq: Status: Active Protocol: Document 07/14/18 09:30 AMB (Rec: 07/19/18 07:39 AMB [email or web address]) Balance Tests Romberg Romberg 30 seconds eyes open, unable eyes closed Single Limb Standing Single Limb- Right 1-2 seconds Single Limb- Left 1 second PT-OP-E Functional Tests Start: 07/14/18 12:41 Freq: Status: Active Protocol: Document 11/23/18 11:00 AMB (Rec: 11/23/18 12:59 AMB [email or web address]) Functional Tests Dynamic Gait Index (DGI) Score PT-OP-G Mobility & Gait Start: 07/14/18 12:41 Freq: Status: Active Protocol: Document 07/14/18 09:30 AMB (Rec: 07/19/18 07:36 AMB [email or web address]) OP Gait Assessment Comments Gait Comments Pt ambulates with reduced arm swing on the left. No scuffing of left foot seen in the clinic with short walks. Reduced head rotation when asked for horizontal head turns. PT-OP-H Neuro Start: 07/14/18 12:41 Freq: Status: Active Protocol: Document 07/14/18 09:30 AMB (Rec: 07/19/18 07:36 AMB [email or web address]) Coordination Evaluation Upper Extremity Tests Left Pronation/Supination Test Minimal Impairment PT-OP-J Posture/Palpation/Skin Start: 07/14/18 12:41 Freq: Status: Active Protocol: Document 07/14/18 09:30 AMB (Rec: 07/19/18 07:36 AMB [email or web address]) Posture Evaluation Comments Posture Comments Slightly forward head, rounded shoulders PT-OP-K Range of Motion Start: 07/14/18 12:41 Freq: Status: Active Protocol: Document 07/14/18 09:30 AMB (Rec: 07/19/18 07:36 AMB [email or web address]) Cervical Spine Range of Motion Cervical Spine Active Degrees Testing Position Sitting Rotation Left 60 Rotation Right 60 Shoulder Goniometric Range of Motion Shoulder Right Active Flexion 150 Left Active Flexion 150 PT-OP-M Strength Start: 07/14/18 12:41 Freq: Status: Active Protocol: Document 07/14/18 09:30 AMB (Rec: 07/19/18 07:41 AMB [email or web address]) Hip Strength Hip Manual Muscle Testing Right Flexion (L2) 5 Normal Abduction 5 Normal Left Flexion (L2) 5 Normal Abduction 5 Normal Knee Strength Knee Manual Muscle Testing Right Flexion (S2) 5 Normal Extension (L3) 5 Normal Left Flexion (S2) 5 Normal Extension (L3) 5 Normal Ankle/Foot Strength Ankle and Foot Manual Muscle Testing Right Dorsiflexion (L4) 4+ Good+ Left Dorsiflexion (L4) 4+ Good+ PT-OP-Q Treatments Start: 07/14/18 12:41 Freq: Status: Active Protocol: Document 11/27/18 11:00 AMB (Rec: 11/30/18 10:52 AMB [id number]) Therapeutic Activity Therapeutic Activity 2 Name sit to stand Comments 10, 12 seat Neuro Re-Education Treatment Balance Activities 7 Details tandem with head turns Comments diagonal 6 Details 3 step and SLS Comments added horizontal head turns 5 Details 3 step and bow with head turn 4 Details foam balance modified tandem Comments EC HT 2 Details a/p and m/l weight shift with arm swing Reps/Duration 10x2 ea Comments with 2# wrist weights 1 Details backward/forward/side stepping with arm swing Reps/Duration 10x2 ea Comments #2 wrist weights Other Activities 5 Details sitting to side to side Reps/Duration 10 Comments with 2# weights 4 Details seated floor to ceiling Reps/Duration 10 3 Details walking with head turns Comments horizontal, vertical, diagonal PT-OP-T Assessment and Plan Start: 07/14/18 12:41 Freq: Status: Active Protocol: Document 11/27/18 11:00 AMB (Rec: 11/30/18 10:52 AMB [id number]) Physical Therapy Assessment Goals Two Impairment Gait Short Term Goal (STG) Aster will improve his DGI score to 20/24 to show decreased risk of falling. STG Duration MET Car Unloader Helper Goal (LTG) Aster will improve his gait so that he can walk with head turns without loss of balance or veering. LTG Duration MET One Impairment Balance Short Term Goal (STG) Aster will improve his single leg stance, so that he can balance on one leg for 5 seconds with eyes open. STG Duration MET Car Unloader Helper Goal (LTG) Aster will make a sharp turn while walking without loss of balance. LTG Duration MET Assessment Summary Assessment Overall Aster has improved very nicely over his time in physical therapy. His dynamic gait index and single leg balance both improved a great deal, showing improved static and dynamic balance. He has been very motivated and consistent with his BIG exercises. He continues to have a tremor, but continues to have hobbies such as his guitar playing, and working around the house that work his fine motor system well. Physical Therapy Plan Discharge Physical Therapy Discharge Reasons Goals Met
== END 2018-11-27 12:00 | disposition home or self-care (01) ==
LOC: PHYS 11:00
PROVIDERS: PCP Internal Medicine; Visit Provider Psychiatry & Neurology Neurology
DX: G20 Parkinson's disease (principal); R27.0 Ataxia, unspecified
CPT/HCPCS: 97110; 97112; 97116; 97161; 97530

== ENCOUNTER 2018-12-15 08:30 | Outpatient (RCR) | payer MEDICARE, OTHER, SELFPAY ==
--- NOTE | 2018-08-07 15:33 | ST.OPTN ---
Care Team Visit Care Team Role Provider Type Morena Burnham MD Primary Care Provider Non-Staff Address: [address] [facility], [place], [address] Rigo Chavez MD Attending Provider Non-Staff Address: [address] [place], [address] CLIENT CARE REPRESENTATIVE Treatment Note CLIENT CARE REPRESENTATIVE Treatment Note Start: 08/02/18 18:41 Freq: Status: Active Protocol: Document 08/07/18 15:26 MICHELA (Rec: 08/07/18 15:33 [email or web address] [email or web address]) Speech Pathology Treatment Note Session Time Visit Start Time 14:30 Visit Stop Time 15:22 Total Visit Minutes 52 Visit Information Visit Number 03/02 Insurance Information Medicare Setting Treatment Setting Outpatient Care Visit Type Note Type Treatment Note Next Note Type Next Note Type Treatment Note Subjective Observations/Patient Presentation Pt arrived on time with his , who was present throughout. No new complaints. Chief Complaint(s) Voice Patient Knowledge/Awareness of CLIENT CARE REPRESENTATIVE Role Good in Treatment Objective Treatment Activities Initiated training of voice exercises including diaphragmatic breathing, sustained phonation with sustained loudness, pitch exercises. Pt demonstrated diaphragmatic breathing x5 independently with 100% accuracy. He sustained phonation for up to 15.52 seconds, initially with steady decline in loudness levels, then with biofeedback, improved consistency of loudness for 8 seconds with decline after as breath support lessened. Pitch range: 98-397 Hz with loudness WNL gliding up the scale, and declining to below normal levels (62 dB) when gliding to lowest notes. Skilled education and feedback provided, including 3 phone/ tablet apps that are available to provide biofeedback. Pt was instructed to tune in to effort levels to reach and sustain target loudness levels . Assessment Patient Response to Treatment Excellent Rehab Potential Excellent Impairments Identified Parkinson's Disease Vocal Quality Additional Impairments Identified Mild bradykinesia impacting speech and voice onset Progress Towards Goals Good Progress Assessment of Improvement The pt was highly responsive to training, education, and feedback, particularly biofeedback. He performed all tasks as instructed and demonstrated excellent understanding of HEP tasks. Reviewed with Patient Goals Progress Being Made Home Exercise Program Patient/Caregiver Understanding Excellent Plan Therapeutic Contents Client Education Home Exercise Program Intelligibility Voice Training Provided Patient/Caregiver Instruction Home Exercise Program Plan of Care Questions/Concerns Therapy Recommendations Continue with Current Program
--- NOTE | 2018-08-07 17:52 | ST.OPIE ---
Provider Information Visit Care Team Role Provider Type Morena Burnham MD Primary Care Provider Non-Staff Specialty: Medical Address: [facility] [place], [address] Email: Rigo Chavez MD Attending Provider Non-Staff Specialty: Neurology Address: [address] [place], [address] Email: Speech-Language Pathology Initial Evaluation SIGHTER Voice Resonance Evaluation Start: 08/02/18 18:41 Freq: Status: Active Protocol: Document 08/02/18 18:42 MICHELA (Rec: 08/02/18 18:46 [email or web address] [email or web address]) Voice and Resonance Assessment Session Time Visit Start Time 15:30 Visit Stop Time 16:30 Total Visit Minutes 60 Visit Information Visit Number Initial Evaluation Plan of Care Dates 08/02/18 - 11/02/18 Insurance Information Medicare Next Note Type Next Note Type Treatment Note Referral Referring Physician Dr. Chavez Reason for Referral Parkinson's disease Setting Setting Outpatient Care Hearing Hearing Level Normal Vision Vision Status Impaired Comments Wears prescription glasses [place] Langauge Language(s) Spoken in the Home [place] Previous Therapy Previous Speech-Language Therapy No - Laryngeal Performance S/Z Ratio S/Z Ratio 1.575 WNL Functional for Speech Yes Reduced Laryngeal Function Relative to No Respiration Voice Handicap Index Function Subtotal 16/40 Mod-Severe Physical Subtotal 16/40 Mild-Moderate Emotional Subtotal 12/40 Mild- [place] Total Score 44/120 Moderate CAPE-V Overall Severity 11% Mild Roughness WNL Breathiness 10% Mild Strain WNL Pitch WNL Loudness 16% Mild Normal Resonance? Yes Maximum Phonation Time MPT Norms: Women (15-25) Men (25-35) Loudness (50-60 dB); Speaking Rate: Oral Reading of Sentences (190 Words Per Minute); Oral Reading of Paragraphs (160-170 WPM); Speaking Rate in Conversation (150-250 WPM) Maximum Phonation Time 14 Maximum Phonation Time Reduced Maximum Phonation Time Comments Reduced to 8 seconds with increased vocal loudness Jitter/Shimmer Norms: Jitter (Less than or equal to 1.040% - Frequency) Norms: Shimmer (Less than or equal to 3.810% - Amplitude) Jitter 0.25 WNL Shimmer 1.97 WNL Pitch [place] Pitch [place] WNL Pitch [place] Comments 98-397 Hz Muscle Tension Assessment Muscle Tension Assessment None Breath Support Breath Support At Rest Mixed Breath Support Sustained Phonation Mixed Breath Support Conversation Mixed Speaks on Room Air Yes Voice Pitch Range Norms: Women (100-300 Hz) Men (70-250 Hz) Fundamental Frequency Norms: Women (Mean: 225 Hz; Range: 155-334 Hz) Men ( Mean: 128 Hz; Range: 85-196 Hz) Paradoxical Vocal Fold Movement No Indications Therapeutic Techniques Therapy Tactics Increase Loudness Findings Findings Mild Impairment Voice/Resonance Assessment Assessment Pt presents with mild vocal impairment primarily in area of reduced vocal loudness with mild breathiness noted intermittently. Speech articulation is clear. Occasional mild hesitation of speech occurs, which the pt is acutely aware of and which reduces his confidence and ability to perform speech and singing tasks as per PLOF. Given his age, overall stable health, recent diagnosis of PD , his motivation and family support, this patient is an excellent candidate for LSVT- Loud therapy. Due to upcoming travel plans, LSVT-Loud will be postponed until November. The pt will be seen for 2-4 sessions over the next 2 months targeting exercises to increase breath support for speech and vocal loudness. Prognosis Rehabilitation Potential Excellent - Recommendations Treatment Recommended Yes Treatment Frequency/Duration 4 visits in 3 mos, then 4 visits/wk for 4 wks (LSVT-Loud ) Placement Recommendation Home Therapy Recommendations 2-4 tx sessions over the next 2 months targeting ongoing education and training of exercises to increase breath support and vocal loudness, followed by LSVT-Loud therapy in November. Short Term Goals 1. The pt will perform diaphragmatic breathing during structured tasks with 90% accuracy to promote adequate breath support for speech and singing. 2. The pt will sustain vowel phonation for 15 seconds with good vocal quality at an avg of 70 dB x3 trials to increase breath support and vocal stamina for speech and singing . 3. The pt will perform vocal exercises idependently to improve/maintain quality of voice at various pitches. Electrifier Operator Goals 1. The pt will demonstrate independent and consistent compliance with HEP program to improve vocal quality and stamina in the presence of a progressive disease. 2. The pt will produce conversational speech WNL of loudness and vocal quality to maintain normal speech intelligibility levels with various conversation partners in various environments. 3. The pt will perceive impact of voice on functional, physical and emotional scales WNL, as measured by VHI scores and pt report. Patient/Caregiver Education Patient/Family Education Described results of evaluation Patient Understanding Family Understanding
--- NOTE | 2018-08-28 16:53 | ST.OPTN ---
Care Team Visit Care Team Role Provider Type Morena Burnham MD Primary Care Provider Non-Staff Address: [address] [facility], [place], [address] Rigo Chavez MD Attending Provider Non-Staff Address: [address] [place], [address] WIRE MILL OPERATOR Treatment Note WIRE MILL OPERATOR Treatment Note Start: 08/02/18 18:41 Freq: Status: Active Protocol: Document 08/28/18 16:49 MICHELA (Rec: 08/28/18 16:53 MICHELA [email or web address]) Speech Pathology Treatment Note Session Time Visit Start Time 14:30 Visit Stop Time 15:15 Total Visit Minutes 45 Visit Information Visit Number 04/02 Insurance Information Medicare Setting Treatment Setting Outpatient Care Visit Type Note Type Treatment Note Next Note Type Next Note Type Treatment Note Subjective Observations/Patient Presentation Pt arrived on time. No new complaints. Chief Complaint(s) Voice Patient Knowledge/Awareness of WIRE MILL OPERATOR Role Good in Treatment Objective Treatment Activities Pt performed sustained phonation (MPT = 14 sec with good vocal quality) and pitch range exercises ( 99-418 Hz) with avg vocal loudness levels from 75-81 dB. Continued training of diaphragmatic breathing and laryngeal relaxation techniques. Pt read text up to 51 words ( 14.36 x) on one breath, with 44 of those words with good vocal quality. Reduced quality with reduced breath support observed with all tasks. Introduced prosody tasks to combat monotone voice frequently associated with Parkinson's disease. Assessment Patient Response to Treatment Excellent Rehab Potential Excellent Impairments Identified Parkinson's Disease Vocal Quality Additional Impairments Identified Mild bradykinesia impacting speech and voice onset Progress Towards Goals Good Progress Assessment of Improvement The pt was highly responsive to training, education, and feedback, particularly biofeedback. He performed all tasks as instructed and demonstrated excellent understanding of HEP tasks. Reviewed with Patient Goals Progress Being Made Home Exercise Program Patient/Caregiver Understanding Excellent Plan Therapeutic Contents Client Education Home Exercise Program Intelligibility Voice Training Provided Patient/Caregiver Instruction Home Exercise Program Plan of Care Questions/Concerns Therapy Recommendations Continue with Current Program
--- NOTE | 2018-09-05 17:24 | ST.OPTN ---
Care Team Visit Care Team Role Provider Type Morena Burnham MD Primary Care Provider Non-Staff Address: [address] [facility], [place], [address] Rigo Chavez MD Attending Provider Non-Staff Address: [address] [place], [address] CLINICAL DERMATOLOGIST Treatment Note CLINICAL DERMATOLOGIST Treatment Note Start: 08/02/18 18:41 Freq: Status: Active Protocol: Document 09/05/18 16:58 MICHELA (Rec: 09/05/18 17:14 MICHELA [email or web address]) Speech Pathology Treatment Note Session Time Visit Start Time 09:30 Visit Stop Time 10:20 Total Visit Minutes 50 Visit Information Visit Number 04/30 Insurance Information Medicare Setting Treatment Setting Outpatient Care Visit Type Note Type Treatment Note Next Note Type Next Note Type Treatment Note General Information General Information 67-yr-old male who was diagnosed with Parkinson's disease in May 2018. Previously, he had diagnosis of essential tremors since 2012. He has noticed decreased strength, increased hoarseness of voice, difficulty enunciating words which results in halting speech, and occasional comments from others of not speaking loudly enough. He is unable to participate in LSVT- Loud treatment at this time d/ t upcoming travel. Subjective Observations/Patient Presentation Pt arrived on time. He informed he will be traveling soon to attend a high school reunion and expressed a desire to speak as normally as possible. He expressed concern about his speech sounding halting. He had no concerns with fluency of automatic speech tasks (e.g., greetings, etc.) but more with spontaneous conversations. Chief Complaint(s) Voice Patient Knowledge/Awareness of CLINICAL DERMATOLOGIST Role Good in Treatment Objective Short Term Goals 1. The pt will perform diaphragmatic breathing during structured tasks with 90% accuracy to promote adequate breath support for speech and singing. 2. The pt will sustain vowel phonation for 15 seconds with good vocal quality at an avg of 70 dB x3 trials to increase breath support and vocal stamina for speech and singing . 3. The pt will perform vocal exercises idependently to improve/maintain quality of voice at various pitches. Fci Goals 1. The pt will demonstrate independent and consistent compliance with HEP program to improve vocal quality and stamina in the presence of a progressive disease. 2. The pt will produce conversational speech WNL of loudness and vocal quality to maintain normal speech intelligibility levels with various conversation partners in various environments. 3. The pt will perceive impact of voice on functional, physical and emotional scales WNL, as measured by VHI scores and pt report. Treatment Activities MPT = 10.54,Avg 69 dB Pt read Grandfather passage, Toothbrush passage, and Declaration of Swisher with avg loudness of 73, 73, and 75 dB, respectively. He exhibited adequate breath support to maintain loudness and speech intelligibility throughout the passage, taking breaths at natural pauses and maintained normal rate of speech. He was able to read up to 17 words on a single breath without jeapordizing speech intelligibility. Skilled feedback provided. The pt expressed good insight into ability and challenges, demonstrating good self- monitoring skills. Education, training and feedback provided RE halting speech and possible impact of Bradykinesia. Recommended pt reduce rate of speech to allow time to formulate thoughts and articulate speech, as well as thinking ahead to possible topics of conversation and what he might like to share/ discuss with others to reduce effort and attention to formulating speech in the moment. This may allow speech to become more automatic. The pt was in agreement with recommendations. Assessment Patient Response to Treatment Excellent Rehab Potential Excellent Impairments Identified Parkinson's Disease Vocal Quality Additional Impairments Identified Mild bradykinesia impacting speech and voice onset Progress Towards Goals Good Progress Assessment of Improvement The pt was highly responsive to training, education, and feedback, particularly biofeedback. He performed all tasks as instructed and demonstrated excellent understanding of HEP tasks. Reviewed with Patient Goals Progress Being Made Home Exercise Program Patient/Caregiver Understanding Excellent Plan Treatment Emphasis Next Session Speech articulation/fluency Therapeutic Contents Client Education Home Exercise Program Intelligibility Voice Training Provided Patient/Caregiver Instruction Home Exercise Program Plan of Care Questions/Concerns Therapy Recommendations Continue with Current Program
--- NOTE | 2018-09-25 15:30 | ST.OPTN ---
Care Team Visit Care Team Role Provider Type Morena Burnham MD Primary Care Provider Non-Staff Address: [address] [facility], [place], [address] Rigo Chavez MD Attending Provider Non-Staff Address: [address] [place], [address] LITHOGRAPHIC PLATE MAKER Treatment Note LITHOGRAPHIC PLATE MAKER Treatment Note Start: 08/02/18 18:41 Freq: Status: Active Protocol: Document 09/25/18 10:27 MICHELA (Rec: 09/25/18 10:30 [email or web address]) Speech Pathology Treatment Note Session Time Visit Start Time 09:35 Visit Stop Time 10:20 Total Visit Minutes 45 Visit Information Visit Number 05/31 Insurance Information Medicare Setting Treatment Setting Outpatient Care Visit Type Note Type Treatment Note Next Note Type Next Note Type Treatment Note General Information General Information 67-yr-old male who was diagnosed with Parkinson's disease in May 2018. Previously, he had diagnosis of essential tremors since 2012. He has noticed decreased strength, increased hoarseness of voice, difficulty enunciating words which results in halting speech, and occasional comments from others of not speaking loudly enough. He is unable to participate in LSVT- Loud treatment at this time d/ t upcoming travel. PMHx also significant for mild emphysema and asthma. He uses an inhaler PRN, last used 5 days ago, and has Albutan rescue inhaler he uses very rarely. He is a former smoker of 37 yrs, having quit in 2009 . Subjective Observations/Patient Presentation Pt arrived on time. Reported increased MPT in home practice but with a vibrato and tightness in throat that he does not like. He informed of a hx of mild emphysema and asthma. He uses an inhaler PRN , last used 5 days ago, and has Albutan rescue inhaler he uses very rarely. He is a former smoker of 37 yrs, having quit in 2009. He also informed of a 2-hr singing performance he will have on Oct.22. This is the last session until the pt begins LSVT-Loud tx in Nov. Chief Complaint(s) Voice Patient Knowledge/Awareness of LITHOGRAPHIC PLATE MAKER Role Good in Treatment Objective Short Term Goals 1. The pt will perform diaphragmatic breathing during structured tasks with 90% accuracy to promote adequate breath support for speech and singing. 2. The pt will sustain vowel phonation for 15 seconds with good vocal quality at an avg of 70 dB x3 trials to increase breath support and vocal stamina for speech and singing . 3. The pt will perform vocal exercises idependently to improve/maintain quality of voice at various pitches. Product Coordinator Goals 1. The pt will demonstrate independent and consistent compliance with HEP program to improve vocal quality and stamina in the presence of a progressive disease. 2. The pt will produce conversational speech WNL of loudness and vocal quality to maintain normal speech intelligibility levels with various conversation partners in various environments. 3. The pt will perceive impact of voice on functional, physical and emotional scales WNL, as measured by VHI scores and pt report. Treatment Activities MPT = 14.37. Pt performed diaphragmatic breathing with mod clavicular involvement, minimized following verbal instruction and demonstration. Pt was able to maintain improved breathing posture throughout remainder of session with breathing in isolation and with sustained phonation task. Educated and trained pt in forward focus and vocal warmup exercises, including yawn/ sigh to reduce laryngeal tension. Pt verbalized understanding and returned demonstration. With use of yawn/sigh and forward focus, the pt's vocal quality improved during sustained phonation and pitch exercises, reducing in strain and vibrato. Assessment Patient Response to Treatment Excellent Rehab Potential Excellent Impairments Identified Parkinson's Disease Vocal Quality Additional Impairments Identified Mild bradykinesia impacting speech and voice onset Progress Towards Goals Good Progress Assessment of Improvement The pt was highly responsive to training, education, and feedback. He performed all tasks as instructed and demonstrated excellent understanding of HEP tasks. He is making good progress toward goals and will continue skilled intervention in November with LSVT-Loud training. Reviewed with Patient Goals Progress Being Made Home Exercise Program Patient/Caregiver Understanding Excellent Plan Treatment Emphasis Next Session Speech articulation/fluency Therapeutic Contents Client Education Home Exercise Program Intelligibility Voice Training Provided Patient/Caregiver Instruction Home Exercise Program Plan of Care Questions/Concerns Therapy Recommendations Continue with Current Program
--- NOTE | 2018-11-22 12:57 | ST.OPTN ---
Visit Care Team Role Provider Type Morena Burnham MD Primary Care Provider Non-Staff Address: [facility] [facility], [place], [address] Rigo Chavez MD Attending Provider Non-Staff Address: [address] [place], [address] TAX REVENUE OFFICER Treatment Note TAX REVENUE OFFICER Treatment Note Start: 08/02/18 18:41 Freq: Status: Active Protocol: Document 11/20/18 11:42 MICHELA (Rec: 11/22/18 12:12 [email or web address]) Speech Pathology Treatment Note Session Time Visit Start Time 08:30 Visit Stop Time 09:30 Total Visit Minutes 60 Visit Information Visit Number 03/02 Plan of Care Dates 11/20/18 - 02/19/19 Insurance Information Medicare Setting Treatment Setting Outpatient Care Visit Type Note Type Re-Evaluation Next Note Type Next Note Type Treatment Note General Information General Information 67-yr-old male who was diagnosed with Parkinson's disease in May 2018. Previously, he had diagnosis of essential tremors since 2012. He has noticed decreased strength, increased hoarseness of voice, difficulty enunciating words which results in halting speech, and occasional comments from others of not speaking loudly enough. The pt has a hx of mild emphysema and asthma. He uses an inhaler PRN and has Albutan rescue inhaler he uses very rarely. He is a former smoker of 37 yrs, having quit in 2009 . PMHx also significant for mild emphysema and asthma. He uses an inhaler PRN, last used 5 days ago, and has Albutan rescue inhaler he uses very rarely. He is a former smoker of 37 yrs, having quit in 2009 . Subjective Observations/Patient Presentation The pt returns to begin LSVT- Loud treatment. He was last seen Sep 25 for voice therapy and since then has been traveling and recently participating in LSVT-Big PT program. He will complete that program this week. He also has initiated daily expiratory muscle strength training ( EMST) using a resistance training device, with permission from his Microbiological Analyst. The pt has no new complaints since last visit. 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 He reports benefit from the voice exercises targeted in previous sessions, which allowed him good success with these performances. Chief Complaint(s) Voice Additional Areas of Concern Parkinson's symptoms Patient Knowledge/Awareness of TAX REVENUE OFFICER Role Good in Treatment Objective Short Term Goals 1. The pt will perform diaphragmatic breathing during structured tasks with 90% accuracy to promote adequate breath support for speech and singing. GOAL MET 2. The pt will sustain vowel phonation for 15 seconds with good vocal quality at an avg of 70 dB x3 trials to increase breath support and vocal stamina for speech and singing. MAKING PROGRESS; CONTINUE GOAL 3. The pt will perform vocal exercises idependently to improve/maintain quality of voice at various pitches. GOAL MET NEW GOALS: 1. Pt will perform pitch glide exercises at avg of 70 dB or greater with min cues to increase pitch range and vocal stability at various pitches. 2. Pt will read Functional Phrases at avg of 72 dB or greater across 10 trials to increase speech intelligibility and promote carryover of vocal loudness into his functional environment. 3. Pt will read words/phrases with avg of 72 dB or greater with 90% accuracy and min cues to increase speech intelligibility. 4. Pt will maintain loudness levels between 68-70 dB in off- the-cuff remarks between structured tasks with min cues to increase speech intelligibility and promote carryover of adequate loudness in spontaneous conversation. Medical Receptionist Goals 1. The pt will demonstrate independent and consistent compliance with HEP program to improve vocal quality and stamina in the presence of a progressive disease. 2. The pt will produce conversational speech WNL of loudness and vocal quality to maintain normal speech intelligibility levels with various conversation partners in various environments. 3. Pt will exhibit vocal quality WNL as measured by CAPE-V (clinician perceptual rating). 4. The pt will perceive no more than mild impact of voice on functional, physical and emotional scales WNL, as measured by VHI scores and pt report. Treatment Activities The pt was educated again on components and goals of LSVT- Loud therapy. Vocal measurements were made and training of LSVT-Loud exercises were initiated. Across 3 trials, average Fundamental Frequency (134 Hz), Jitter (0.35%) and Shimmer (1.56%) were all WNL. MPT: 14.6 sec, avg loudness x3 trials 67.5 dB independently, increased to 76 dB with verbal prompts. Pitch Range: 107-393 Hz, Avg loudness of highs 78 dB, lows 78.3 dB without prompting. Average loudness in spontaneous conversation: 67. 75 dB independently. Assessment Patient Response to Treatment Excellent Rehab Potential Excellent Impairments Identified Parkinson's Disease,Vocal Quality Additional Impairments Identified Mild bradykinesia impacting speech and voice onset Progress Towards Goals Good Progress Assessment of Improvement The pt demonstrates consistent vocal performance as compared to previous sessions, consistent with pt reports of good compliance with HEP tasks since the pt was last seen. Vocal loudness is largely WNL but tends to decrease mildly over duration of spontaneous speech tasks and between structured tasks. The pt continues with mildly halted speech, indicating slowed processing time and possible impact of Parkinson's disease on vocal onset and motor speech. He was 100% intelligible, is highly motivated to participate in treatment, and exhibits excellent awareness of deficits and his body's responses to treatment targets. The pt is a good candidate for LSVT-Loud treatment. Skilled intervention is medically necessary to increase the pt's understanding of potential impacts of Parkinson's disease on communication and swallowing abilities and equip him to maintain his highest level of independence over the progression of disease. Reviewed with Patient Goals,Progress Being Made,Home Exercise Program Patient/Caregiver Understanding Excellent Plan Amount of Therapy Recommended 1-2 Months Frequency of Treatment Four Times a Week Length of Session 60 Minutes Therapeutic Contents Client Education,Home Exercise Program,Intelligibility,Voice Training Provided Patient/Caregiver Instruction Home Exercise Program,Plan of Care,Questions/Concerns Therapy Recommendations Continue with Current Program
--- NOTE | 2018-11-22 13:10 | ST.OPTN ---
Visit Care Team Role Provider Type Morena Burnham MD Primary Care Provider Non-Staff Address: [facility], [place], [address] Rigo Chavez MD Attending Provider Non-Staff Address: [address] [place], [address] LVN LPN Treatment Note LVN LPN Treatment Note Start: 08/02/18 18:41 Freq: Status: Active Protocol: Document 11/21/18 13:02 MICHELA (Rec: 11/22/18 13:10 [email or web address]) Speech Pathology Treatment Note Session Time Visit Start Time 08:30 Visit Stop Time 09:30 Total Visit Minutes 60 Visit Information Visit Number 04/02 Plan of Care Dates 11/20/18 - 02/19/19 Insurance Information Medicare Setting Treatment Setting Outpatient Care Visit Type Note Type Re-Evaluation Next Note Type Next Note Type Treatment Note General Information General Information 67-yr-old male who was diagnosed with Parkinson's disease in May 2018. Previously, he had diagnosis of essential tremors since 2012. He has noticed decreased strength, increased hoarseness of voice, difficulty enunciating words which results in halting speech, and occasional comments from others of not speaking loudly enough. The pt has a hx of mild emphysema and asthma. He uses an inhaler PRN and has Albutan rescue inhaler he uses very rarely. He is a former smoker of 37 yrs, having quit in 2009 . PMHx also significant for mild emphysema and asthma. He uses an inhaler PRN, last used 5 days ago, and has Albutan rescue inhaler he uses very rarely. He is a former smoker of 37 yrs, having quit in 2009 . Subjective Observations/Patient Presentation The pt arrived on time. No new complaints. Chief Complaint(s) Voice Additional Areas of Concern Parkinson's symptoms Patient Knowledge/Awareness of LVN LPN Role Good in Treatment Objective Short Term Goals 1. The pt will perform diaphragmatic breathing during structured tasks with 90% accuracy to promote adequate breath support for speech and singing. GOAL MET 2. The pt will sustain vowel phonation for 15 seconds with good vocal quality at an avg of 70 dB x3 trials to increase breath support and vocal stamina for speech and singing . MAKING PROGRESS; CONTINUE GOAL 3. The pt will perform vocal exercises idependently to improve/maintain quality of voice at various pitches. GOAL MET NEW GOALS: 2. Pt will perform pitch glide exercises at avg of 70 dB or greater with min cues to increase pitch range and vocal stability at various pitches. 3. Pt will read Functional Phrases at avg of 72 dB or greater across 10 trials to increase speech intelligibility and promote carryover of vocal loudness into his functional environment. 4. Pt will read words/phrases with avg of 72 dB or greater with 90% accuracy and min cues to increase speech intelligibility. 5. Pt will maintain loudness levels between 68-70 dB in off -the-cuff remarks between structured tasks with min cues to increase speech intelligibility and promote carryover of adequate loudness in spontaneous conversation. Mcfp Goals 1. The pt will demonstrate independent and consistent compliance with HEP program to improve vocal quality and stamina in the presence of a progressive disease. 2. The pt will produce conversational speech WNL of loudness and vocal quality to maintain normal speech intelligibility levels with various conversation partners in various environments. 3. Pt will exhibit vocal quality WNL as measured by CAPE-V (clinician perceptual rating). 4. The pt will perceive no more than mild impact of voice on functional, physical and emotional scales WNL, as measured by VHI scores and pt report. Treatment Activities Established Functional Phrases for LSVT-Loud tx. Pt completed LSVT-Loud exercises with the following results: MPT: 14.6 sec, avg loudness 79 .8 dB, min cues. Pitch Range: 89-500 Hz, Avg loudness of highs 80.1 dB, lows 71.4 dB, mod verbal prompts to maintain loudness with decreased pitch. Skilled feedback on vocal quality and training to reduce vocal strain provided. Pt responsive and improved vocal quality. Functional Phrases: Avg 74.3 dB independently Words/Phrases: 77 dB independently Average loudness in spontaneous conversation: 75.5 dB min prompts. Mild loss of vocal loudness in ceo-nhs-cnos remarks between structured tasks. Pt made this observation independently, demonstrating excellent awareness and self-monitoring skills. Assessment Patient Response to Treatment Excellent Rehab Potential Excellent Impairments Identified Parkinson's Disease,Vocal Quality Additional Impairments Identified Mild bradykinesia impacting speech and voice onset Progress Towards Goals Good Progress Assessment of Improvement The pt was highly responsive to all education, training and feedback. Demonstrates excellent awareness and self- monitoring skills. Loudness levels all meet targets. Mildly decreased loudness in ioh-tdd-smrr remarks and variable loudness levels in spontaneous speech. The pt exhibits good prodosic features with little evidence of monotone/loudness. Occasionally reduced facial expression observed. Reviewed with Patient Goals,Progress Being Made,Home Exercise Program Patient/Caregiver Understanding Excellent Plan Amount of Therapy Recommended 1-2 Months Frequency of Treatment Four Times a Week Length of Session 60 Minutes Therapeutic Contents Client Education,Home Exercise Program,Intelligibility,Voice Training Provided Patient/Caregiver Instruction Home Exercise Program,Plan of Care,Questions/Concerns Therapy Recommendations Continue with Current Program
--- NOTE | 2018-11-22 13:20 | ST.OPTN ---
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 Previously, he had diagnosis of essential tremors since 2012. He has noticed decreased strength, increased hoarseness of voice, difficulty enunciating words which results in halting speech, and occasional comments from others of not speaking loudly enough. The pt has a hx of mild emphysema and asthma. He uses an inhaler PRN and has Albutan rescue inhaler he uses very rarely. He is a former smoker of 37 yrs, having quit in 2009 . PMHx also significant for mild emphysema and asthma. He uses an inhaler PRN, last used 5 days ago, and has Albutan rescue inhaler he uses very rarely. He is a former smoker of 37 yrs, having quit in 2009 . Subjective Observations/Patient Presentation The pt arrived on time. Pt reported observing occasional drooling, particularly when singing, as well as occasional difficulty with swallow. 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 The pt will perform diaphragmatic breathing during structured tasks with 90% accuracy to promote adequate breath support for speech and singing. GOAL MET 2. The pt will sustain vowel phonation for 15 seconds with good vocal quality at an avg of 70 dB x3 trials to increase breath support and vocal stamina for speech and singing . MAKING PROGRESS; CONTINUE GOAL 3. The pt will perform vocal exercises idependently to improve/maintain quality of voice at various pitches. GOAL MET NEW GOALS: 2. Pt will perform pitch glide exercises at avg of 70 dB or greater with min cues to increase pitch range and vocal stability at various pitches. 3. Pt will read Functional Phrases at avg of 72 dB or greater across 10 trials to increase speech intelligibility and promote carryover of vocal loudness into his functional environment. 4. Pt will read words/phrases with avg of 72 dB or greater with 90% accuracy and min cues to increase speech intelligibility. 5. Pt will maintain loudness levels between 68-70 dB in off -the-cuff remarks between structured tasks with min cues to increase speech intelligibility and promote carryover of adequate loudness in spontaneous conversation. Legal Document Assistant Goals 1. The pt will demonstrate independent and consistent compliance with HEP program to improve vocal quality and stamina in the presence of a progressive disease. 2. The pt will produce conversational speech WNL of loudness and vocal quality to maintain normal speech intelligibility levels with various conversation partners in various environments. 3. Pt will exhibit vocal quality WNL as measured by CAPE-V (clinician perceptual rating). 4. The pt will perceive no more than mild impact of voice on functional, physical and emotional scales WNL, as measured by VHI scores and pt report. Treatment Activities Education provided RE potential impact of PD on saliva management, swallow function/safety, and facial expression. The pt's questions were answered and instruction provided verbally with demonstration on oral motor exercises (sucking/smacking, smile-pucker, elevation/ depression of eyebrows) and Amarilys. Pt returned demonstration and verbalized understanding. Pt completed LSVT-Loud exercises with the following results: MPT: 15 sec, avg loudness 76.1 dB, min cues. Pitch Range: 85-435 Hz occ strain, Avg loudness of highs 81.3 dB, lows 73.7 dB, mod verbal prompts to maintain loudness with decreased pitch. Skilled feedback on vocal quality and training to reduce vocal strain provided. Pt responsive and improved vocal quality. Functional Phrases: Avg 76 dB independently Words/Phrases: 76 dB independently Average loudness in spontaneous conversation: 72 dB min prompts. Mild loss of vocal loudness in [id number] remarks between structured tasks. Assessment Patient Response to Treatment Excellent Rehab Potential Excellent Impairments Identified Parkinson's Disease,Vocal Quality Additional Impairments Identified Mild bradykinesia impacting speech and voice onset Progress Towards Goals Good Progress Assessment of Improvement The pt was highly responsive to all education, training and feedback. Demonstrates excellent awareness and self- monitoring skills. Loudness levels all meet targets. Mildly decreased loudness in [id number]-[id number] remarks and variable loudness levels in spontaneous speech. The pt exhibits good prodosic features with little evidence of monotone/loudness. Improved facial expression observed with structured tasks; mildly reduced in spontaneous conversation. Reviewed with Patient Goals,Progress Being Made,Home Exercise Program Patient/Caregiver Understanding Excellent Plan Amount of Therapy Recommended 1-2 Months Frequency of Treatment Four Times a Week Length of Session 60 Minutes Therapeutic Contents Client Education,Home Exercise Program,Intelligibility,Voice Training Provided Patient/Caregiver Instruction Home Exercise Program,Plan of Care,Questions/Concerns Therapy Recommendations Continue with Current Program
--- NOTE | 2018-11-27 16:51 | ST.OPTN ---
Visit Care Team Role Provider Type Morena Burnham MD Primary Care Provider Non-Staff Address: [facility], [place], [address] Rigo Chavez MD Attending Provider Non-Staff Address: [address] [place], [address] RO[address] FREIGHT CONDUCTOR Treatment Note ROAD FREIGHT CONDUCTOR Treatment Note Start: 08/02/18 18:41 Freq: Status: Active Protocol: Document 11/27/18 16:42 MICHELA (Rec: 11/27/18 16:51 [email or web address] [email or web address]) Speech Pathology Treatment Note Session Time Visit Start Time 08:30 Visit Stop Time 09:30 Total Visit Minutes 60 Visit Information Visit Number 05/31 Plan of Care Dates 11/20/18 - 02/19/19 Insurance Information Medicare Setting Treatment Setting Outpatient Care Visit Type Note Type Re-Evaluation Next Note Type Next Note Type Treatment Note General Information General Information 67-yr-old male who was diagnosed with Parkinson's disease in May 2018. Previously, he had diagnosis of essential tremors since 2012. He has noticed decreased strength, increased hoarseness of voice, difficulty enunciating words which results in halting speech, and occasional comments from others of not speaking loudly enough. The pt has a hx of mild emphysema and asthma. He uses an inhaler PRN and has Albutan rescue inhaler he uses very rarely. He is a former smoker of 37 yrs, having quit in 2009 . PMHx also significant for mild emphysema and asthma. He uses an inhaler PRN, last used 5 days ago, and has Albutan rescue inhaler he uses very rarely. He is a former smoker of 37 yrs, having quit in 2009 . Subjective Observations/Patient Presentation The pt arrived on time. No new complaints. Chief Complaint(s) Voice Additional Areas of Concern Parkinson's symptoms Patient Knowledge/Awareness of ROAD FREIGHT CONDUCTOR Role Good in Treatment Objective Short Term Goals 1. The pt will sustain vowel phonation for 15 seconds with good vocal quality at an avg of 70 dB x3 trials to increase breath support and vocal stamina for speech and singing . GOAL MET. Advance target to 20 seconds. 2. Pt will perform pitch glide exercises at avg of 70 dB or greater with min cues to increase pitch range and vocal stability at various pitches. 3. Pt will read Functional Phrases at avg of 72 dB or greater across 10 trials to increase speech intelligibility and promote carryover of vocal loudness into his functional environment. 4. Pt will read words/phrases with avg of 72 dB or greater with 90% accuracy and min cues to increase speech intelligibility. GOAL MET. Advance to sentence level. 5. Pt will maintain loudness levels between 68-70 dB in off -the-cuff remarks between structured tasks with min cues to increase speech intelligibility and promote carryover of adequate loudness in spontaneous conversation. Senior Mechanical Estimator Goals 1. The pt will demonstrate independent and consistent compliance with HEP program to improve vocal quality and stamina in the presence of a progressive disease. 2. The pt will produce conversational speech WNL of loudness and vocal quality to maintain normal speech intelligibility levels with various conversation partners in various environments. 3. Pt will exhibit vocal quality WNL as measured by CAPE-V (clinician perceptual rating). 4. The pt will perceive no more than mild impact of voice on functional, physical and emotional scales WNL, as measured by VHI scores and pt report. Treatment Activities Pt completed LSVT-Loud exercises with the following results: MPT: 16.8 sec, avg loudness 72 .6 dB, min cues. Pitch Range: 92-525 Hz occ strain, Avg loudness of highs 80.3 dB, lows 73 dB, mod verbal prompts to maintain loudness with decreased pitch. Skilled feedback on vocal quality and training to reduce vocal strain provided. Pt responsive and improved vocal quality. Functional Phrases: Avg 75.6 dB independently Words/Phrases: 75 dB independently Average loudness in spontaneous conversation: 72.6 dB min prompts. Mild loss of vocal loudness in [id number] remarks between structured tasks. Assessment Patient Response to Treatment Excellent Rehab Potential Excellent Impairments Identified Parkinson's Disease,Vocal Quality Additional Impairments Identified Mild bradykinesia impacting speech and voice onset Progress Towards Goals Good Progress Assessment of Improvement Pt is meeting target loudness levels in all tasks with occ mildly decreased loudness in [id number] remarks and variable loudness levels in spontaneous speech. The pt exhibits good prodosic features with little evidence of monotone/loudness. Improved facial expression observed with structured tasks; mildly reduced in spontaneous conversation. Reviewed with Patient Goals,Progress Being Made,Home Exercise Program Patient/Caregiver Understanding Excellent Plan Amount of Therapy Recommended 1-2 Months Frequency of Treatment Four Times a Week Length of Session 60 Minutes Therapeutic Contents Client Education,Home Exercise Program,Intelligibility,Voice Training Provided Patient/Caregiver Instruction Home Exercise Program,Plan of Care,Questions/Concerns Therapy Recommendations Continue with Current Program Comment Advance speech targets to sentences.
--- NOTE | 2018-11-28 09:45 | ST.OPTN ---
Visit Care Team Role Provider Type Morena Burnham MD Primary Care Provider Non-Staff Address: [facility], [place], [address] Rigo Chavez MD Attending Provider Non-Staff Address: [address] [place], [address] MINGLER OPERATOR Treatment Note MINGLER OPERATOR Treatment Note Start: 08/02/18 18:41 Freq: Status: Active Protocol: Document 11/28/18 09:32 MICHELA (Rec: 11/28/18 09:45 MICHELA [email or web address]) Speech Pathology Treatment Note Session Time Visit Start Time 08:30 Visit Stop Time 09:30 Total Visit Minutes 60 Visit Information Visit Number 06/30 Plan of Care Dates 11/20/18 - 02/19/19 Insurance Information Medicare Setting Treatment Setting Outpatient Care Visit Type Note Type Re-Evaluation Next Note Type Next Note Type Treatment Note General Information General Information 67-yr-old male who was diagnosed with Parkinson's disease in May 2018. Previously, he had diagnosis of essential tremors since 2012. He has noticed decreased strength, increased hoarseness of voice, difficulty enunciating words which results in halting speech, and occasional comments from others of not speaking loudly enough. The pt has a hx of mild emphysema and asthma. He uses an inhaler PRN and has Albutan rescue inhaler he uses very rarely. He is a former smoker of 37 yrs, having quit in 2009 . PMHx also significant for mild emphysema and asthma. He uses an inhaler PRN, last used 5 days ago, and has Albutan rescue inhaler he uses very rarely. He is a former smoker of 37 yrs, having quit in 2009 . Subjective Observations/Patient Presentation The pt arrived on time. No new complaints. Chief Complaint(s) Voice Additional Areas of Concern Parkinson's symptoms Patient Knowledge/Awareness of MINGLER OPERATOR Role Good in Treatment Objective Short Term Goals 1. The pt will sustain vowel phonation for 20 seconds with good vocal quality at an avg of 70 dB x3 trials to increase breath support and vocal stamina for speech and singing . 2. Pt will perform pitch glide exercises at avg of 70 dB or greater with min cues to increase pitch range and vocal stability at various pitches. 3. Pt will read Functional Phrases at avg of 72 dB or greater across 10 trials to increase speech intelligibility and promote carryover of vocal loudness into his functional environment. 4. Pt will read sentences with avg of 72 dB or greater with 90% accuracy and min cues to increase speech intelligibility. 5. Pt will maintain loudness levels between 68-70 dB in off -the-cuff remarks between structured tasks with min cues to increase speech intelligibility and promote carryover of adequate loudness in spontaneous conversation. Italian Teacher Goals 1. The pt will demonstrate independent and consistent compliance with HEP program to improve vocal quality and stamina in the presence of a progressive disease. 2. The pt will produce conversational speech WNL of loudness and vocal quality to maintain normal speech intelligibility levels with various conversation partners in various environments. 3. Pt will exhibit vocal quality WNL as measured by CAPE-V (clinician perceptual rating). 4. The pt will perceive no more than mild impact of voice on functional, physical and emotional scales WNL, as measured by VHI scores and pt report. Treatment Activities Pt completed LSVT-Loud exercises with the following results: MPT: 15.7 sec, avg loudness 80 .8 dB, min cues. Pitch Range: 72-511 Hz varying vocal quality, Avg loudness of highs 79.3 dB, lows 69. 1dB. Best vocal quality between 113-400 Hz. Lower pitches became significantly breathy while strain became a factor in higher pitches. Will target moving incrementally with good vocal quality from this target pitch range. Functional Phrases: Avg 73.3dB independently Sentences: 76.5 dB independently Average loudness in spontaneous conversation: 71.7 dB min prompts. Improving vocal loudness in [id number] remarks between structured tasks. Assessment Patient Response to Treatment Excellent Rehab Potential Excellent Impairments Identified Parkinson's Disease,Vocal Quality Additional Impairments Identified Mild bradykinesia impacting speech and voice onset Progress Towards Goals Good Progress Assessment of Improvement Pt is meeting target loudness levels in all tasks with occ mildly decreased loudness in [id number]-[id number] remarks and variable loudness levels in spontaneous speech, but improving. The pt exhibits good prodosic features with little evidence of monotone/ loudness. Improved facial expression observed with structured tasks; mildly reduced in spontaneous conversation. Pt maintaining vocal loudness with sentences, as compared to words/phrases. Compliant with HEP. Reviewed with Patient Goals,Progress Being Made,Home Exercise Program Patient/Caregiver Understanding Excellent Plan Amount of Therapy Recommended 1-2 Months Frequency of Treatment Four Times a Week Length of Session 60 Minutes Therapeutic Contents Client Education,Home Exercise Program,Intelligibility,Voice Training Provided Patient/Caregiver Instruction Home Exercise Program,Plan of Care,Questions/Concerns Therapy Recommendations Continue with Current Program Comment Advance speech targets to sentences.
--- NOTE | 2018-11-29 12:19 | ST.OPTN ---
Visit Care Team Role Provider Type Morena Burnham MD Primary Care Provider Non-Staff Address: [facility]5 [facility], [place], [address] Rigo Chavez MD Attending Provider Non-Staff Address: [address] [place], [address] ROLLER DIE CUTTING MACHINE OPERATOR Treatment Note ROLLER DIE CUTTING MACHINE OPERATOR Treatment Note Start: 08/02/18 18:41 Freq: Status: Active Protocol: Document 11/29/18 12:12 MICHELA (Rec: 11/29/18 12:19 MICHELA [email or web address]) Speech Pathology Treatment Note Session Time Visit Start Time 08:30 Visit Stop Time 09:30 Total Visit Minutes 60 Visit Information Visit Number 07/31 Plan of Care Dates 11/20/18 - 02/19/19 Insurance Information Medicare Setting Treatment Setting Outpatient Care Visit Type Note Type Re-Evaluation Next Note Type Next Note Type Treatment Note General Information General Information 67-yr-old male who was diagnosed with Parkinson's disease in May 2018. Previously, he had diagnosis of essential tremors since 2012. He has noticed decreased strength, increased hoarseness of voice, difficulty enunciating words which results in halting speech, and occasional comments from others of not speaking loudly enough. The pt has a hx of mild emphysema and asthma. He uses an inhaler PRN and has Albutan rescue inhaler he uses very rarely. He is a former smoker of 37 yrs, having quit in 2009 . PMHx also significant for mild emphysema and asthma. He uses an inhaler PRN, last used 5 days ago, and has Albutan rescue inhaler he uses very rarely. He is a former smoker of 37 yrs, having quit in 2009 . Subjective Observations/Patient Presentation The pt arrived on time. No new complaints. Chief Complaint(s) Voice Additional Areas of Concern Parkinson's symptoms Patient Knowledge/Awareness of ROLLER DIE CUTTING MACHINE OPERATOR Role Good in Treatment Objective Short Term Goals 1. The pt will sustain vowel phonation for 20 seconds with good vocal quality at an avg of 70 dB x3 trials to increase breath support and vocal stamina for speech and singing . 2. Pt will perform pitch glide exercises at avg of 70 dB or greater with min cues to increase pitch range and vocal stability at various pitches. 3. Pt will read Functional Phrases at avg of 72 dB or greater across 10 trials to increase speech intelligibility and promote carryover of vocal loudness into his functional environment. 4. Pt will read sentences with avg of 72 dB or greater with 90% accuracy and min cues to increase speech intelligibility. 5. Pt will maintain loudness levels between 68-70 dB in off -the-cuff remarks between structured tasks with min cues to increase speech intelligibility and promote carryover of adequate loudness in spontaneous conversation. Bridge Opener Goals 1. The pt will demonstrate independent and consistent compliance with HEP program to improve vocal quality and stamina in the presence of a progressive disease. 2. The pt will produce conversational speech WNL of loudness and vocal quality to maintain normal speech intelligibility levels with various conversation partners in various environments. 3. Pt will exhibit vocal quality WNL as measured by CAPE-V (clinician perceptual rating). 4. The pt will perceive no more than mild impact of voice on functional, physical and emotional scales WNL, as measured by VHI scores and pt report. Treatment Activities Pt completed LSVT-Loud exercises with the following results: MPT: 14.8 sec at avg 69 dB with good vocal quality. 13.3 sec with increased loudness to avg 75 dB maintaining vocal quality. Able to extend up to 19 sec but with significantly poorer quality and increased strain as airstream reduced. Pitch Range: 94-424 Hz with good vocal quality, Avg loudness of highs 76 dB, lows 74 dB. Pt benefited from visual biofeedback. Functional Phrases: Avg 75 dB independently Sentences: 76 dB independently . Pt maintain consistent loudness with initial instruction only while doing sentence completion (verbal analogy) task. Average loudness in spontaneous conversation: 71.6 dB min prompts. Improving vocal loudness in [id number]-cyz-vvbl remarks between structured tasks. Assessment Patient Response to Treatment Excellent Rehab Potential Excellent Impairments Identified Parkinson's Disease,Vocal Quality Additional Impairments Identified Mild bradykinesia impacting speech and voice onset Progress Towards Goals Good Progress Assessment of Improvement Pt is making excellent progress. Loudness levels in conversation and yec-roz-isig responses are improving and becoming more consistent. The pt completed verbal analogies today, in which he had to complete sentences. He remarked notable increased difficulty with dual task of generating partial sentences and maintaining loudness levels, which he did well. He is exhibiting loudness levels in conversation WNL with min verbal prompts. Reviewed with Patient Goals,Progress Being Made,Home Exercise Program Patient/Caregiver Understanding Excellent Plan Amount of Therapy Recommended 1-2 Months Frequency of Treatment Four Times a Week Length of Session 60 Minutes Therapeutic Contents Client Education,Home Exercise Program,Intelligibility,Voice Training Provided Patient/Caregiver Instruction Home Exercise Program,Plan of Care,Questions/Concerns Therapy Recommendations Continue with Current Program Comment Advance speech targets to sentences.
--- NOTE | 2018-11-30 09:58 | ST.OPTN ---
Visit Care Team Role Provider Type Morena Burnham MD Primary Care Provider Non-Staff Address: [facility], [place], [address] Rigo Chavez MD Attending Provider Non-Staff Address: [address] [place], [address] CHAMFERING MACHINE OPERATOR Treatment Note CHAMFERING MACHINE OPERATOR Treatment Note Start: 08/02/18 18:41 Freq: Status: Active Protocol: Document 11/30/18 09:44 MICHELA (Rec: 11/30/18 09:57 MICHELA [email or web address]) Speech Pathology Treatment Note Session Time Visit Start Time 08:30 Visit Stop Time 09:30 Total Visit Minutes 60 Visit Information Visit Number 08/30 Plan of Care Dates 11/20/18 - 02/19/19 Insurance Information Medicare Setting Treatment Setting Outpatient Care Visit Type Note Type Re-Evaluation Next Note Type Next Note Type Treatment Note General Information General Information 67-yr-old male who was diagnosed with Parkinson's disease in May 2018. Previously, he had diagnosis of essential tremors since 2012. He has noticed decreased strength, increased hoarseness of voice, difficulty enunciating words which results in halting speech, and occasional comments from others of not speaking loudly enough. The pt has a hx of mild emphysema and asthma. He uses an inhaler PRN and has Albutan rescue inhaler he uses very rarely. He is a former smoker of 37 yrs, having quit in 2009 . PMHx also significant for mild emphysema and asthma. He uses an inhaler PRN, last used 5 days ago, and has Albutan rescue inhaler he uses very rarely. He is a former smoker of 37 yrs, having quit in 2009 . Subjective Observations/Patient Presentation The pt arrived on time. No new complaints. Chief Complaint(s) Voice Additional Areas of Concern Parkinson's symptoms Patient Knowledge/Awareness of CHAMFERING MACHINE OPERATOR Role Good in Treatment Objective Short Term Goals 1. The pt will sustain vowel phonation for 20 seconds with good vocal quality at an avg of 70 dB x3 trials to increase breath support and vocal stamina for speech and singing . 2. Pt will perform pitch glide exercises at avg of 70 dB or greater with min cues to increase pitch range and vocal stability at various pitches. 3. Pt will read Functional Phrases at avg of 72 dB or greater across 10 trials to increase speech intelligibility and promote carryover of vocal loudness into his functional environment. 4. Pt will read sentences with avg of 72 dB or greater with 90% accuracy and min cues to increase speech intelligibility. 5. Pt will maintain loudness levels between 68-70 dB in off -the-cuff remarks between structured tasks with min cues to increase speech intelligibility and promote carryover of adequate loudness in spontaneous conversation. Assistant Real Estate Manager Goals 1. The pt will demonstrate independent and consistent compliance with HEP program to improve vocal quality and stamina in the presence of a progressive disease. 2. The pt will produce conversational speech WNL of loudness and vocal quality to maintain normal speech intelligibility levels with various conversation partners in various environments. 3. Pt will exhibit vocal quality WNL as measured by CAPE-V (clinician perceptual rating). 4. The pt will perceive no more than mild impact of voice on functional, physical and emotional scales WNL, as measured by VHI scores and pt report. Treatment Activities Pt completed LSVT-Loud exercises with the following results: MPT: 16 sec at avg 76 dB with good vocal quality. 19 sec with increased loudness but decreased quality of voice past 16 sec. Pitch Range: 103-518 Hz with good vocal quality, Avg loudness of highs 80.4 dB, lows 79.2 dB. Pt benefited from visual biofeedback. Functional Phrases: Avg 75 dB independently Sentences: 76.3 dB independently. Pt exhibited mild decrease in loudness with increased cognitive load ( formulating & stating similarities/differences). He verbalized awareness, was responsive to feedback and able to modify and improve consistency. Average loudness in spontaneous conversation: 69 dB min prompts. Improving vocal loudness in [id number]-[id number] remarks between structured tasks. Fluency of speech WNL during structured tasks. Speech becomes noticably halting in spontaneous conversation. Discussed with pt who exhibits good insight. Skilled education and feedback provided as well as recommendations for addressing this in treatment. Assessment Patient Response to Treatment Excellent Rehab Potential Excellent Impairments Identified Parkinson's Disease,Vocal Quality Additional Impairments Identified Mild bradykinesia impacting speech and voice onset Progress Towards Goals Good Progress Assessment of Improvement Pt continues to progress well. The pt has expressed concern over dysfluency of speech, which has been observed by both CHAMFERING MACHINE OPERATOR and pt to be present in spontaneous conversation and absent in structured tasks where there is a specific purpose to the speech task/ conversation. For example, the pt noted no dysfluency when discussing medication with a Pharmacists or cars with a cardiac specialist. Likewise, in therapeutic speech tasks ( identify similarity/difference between 2 objects) speech fluency is WNL. This indicates dysfluency is not a result of motor planning (e.g. Apraxia of speech) but is more likely a result of expressive language planning or may be impacted also by psychological factors. Will continue to monitor and address with more loosely structured speech tasks. Reviewed with Patient Goals,Progress Being Made,Home Exercise Program Patient/Caregiver Understanding Excellent Plan Amount of Therapy Recommended 1-2 Months Frequency of Treatment Four Times a Week Length of Session 60 Minutes Therapeutic Contents Client Education,Home Exercise Program,Intelligibility,Voice Training Provided Patient/Caregiver Instruction Home Exercise Program,Plan of Care,Questions/Concerns Therapy Recommendations Continue with Current Program Comment Advance speech targets to sentences.
--- NOTE | 2018-12-05 16:32 | ST.OPTN ---
Visit Care Team Role Provider Type Morena Burnham MD Primary Care Provider Non-Staff Address: [facility], [place], [address] Rigo Chavez MD Attending Provider Non-Staff Address: [address] [place], [address] OPENING MACHINE CLEANER Treatment Note OPENING MACHINE CLEANER Treatment Note Start: 08/02/18 18:41 Freq: Status: Active Protocol: Document 12/05/18 16:25 MICHELA (Rec: 12/05/18 16:31 MICHELA [email or web address]) Speech Pathology Treatment Note Session Time Visit Start Time 08:30 Visit Stop Time 09:30 Total Visit Minutes 60 Visit Information Visit Number 09/30 Plan of Care Dates 11/20/18 - 02/19/19 Insurance Information Medicare Setting Treatment Setting Outpatient Care Visit Type Note Type Re-Evaluation Next Note Type Next Note Type Treatment Note General Information General Information 67-yr-old male who was diagnosed with Parkinson's disease in May 2018. Previously, he had diagnosis of essential tremors since 2012. He has noticed decreased strength, increased hoarseness of voice, difficulty enunciating words which results in halting speech, and occasional comments from others of not speaking loudly enough. The pt has a hx of mild emphysema and asthma. He uses an inhaler PRN and has Albutan rescue inhaler he uses very rarely. He is a former smoker of 37 yrs, having quit in 2009 . PMHx also significant for mild emphysema and asthma. He uses an inhaler PRN, last used 5 days ago, and has Albutan rescue inhaler he uses very rarely. He is a former smoker of 37 yrs, having quit in 2009 . Subjective Observations/Patient Presentation The pt arrived on time. No new complaints. Chief Complaint(s) Voice Additional Areas of Concern Parkinson's symptoms Patient Knowledge/Awareness of OPENING MACHINE CLEANER Role Good in Treatment Objective Short Term Goals 1. The pt will sustain vowel phonation for 20 seconds with good vocal quality at an avg of 70 dB x3 trials to increase breath support and vocal stamina for speech and singing . 2. Pt will perform pitch glide exercises at avg of 70 dB or greater with min cues to increase pitch range and vocal stability at various pitches. 3. Pt will read Functional Phrases at avg of 72 dB or greater across 10 trials to increase speech intelligibility and promote carryover of vocal loudness into his functional environment. 4. Pt will read sentences with avg of 72 dB or greater with 90% accuracy and min cues to increase speech intelligibility. 5. Pt will maintain loudness levels between 68-70 dB in off -the-cuff remarks between structured tasks with min cues to increase speech intelligibility and promote carryover of adequate loudness in spontaneous conversation. Lunch Cook Goals 1. The pt will demonstrate independent and consistent compliance with HEP program to improve vocal quality and stamina in the presence of a progressive disease. 2. The pt will produce conversational speech WNL of loudness and vocal quality to maintain normal speech intelligibility levels with various conversation partners in various environments. 3. Pt will exhibit vocal quality WNL as measured by CAPE-V (clinician perceptual rating). 4. The pt will perceive no more than mild impact of voice on functional, physical and emotional scales WNL, as measured by VHI scores and pt report. Treatment Activities Pt completed LSVT-Loud exercises with the following results: MPT: 15.32 sec at avg 85 dB, min prompts, with good vocal quality. Pt maintained duration of 9.9-13 sec when increasing loudness levels. Pitch Range: 103-549 Hz with good vocal quality, Avg loudness of highs 83.1 dB, lows 77 dB. Pt benefited from visual biofeedback. Functional Phrases: Avg 76.3 dB independently. Improved consistency across start to finish of each sentence while maintaining appropriate prosody. Sentences: 76 dB independently . Pt exhibited mild decrease in loudness with increased cognitive load (formulating & stating similarities/ differences). He verbalized awareness, was responsive to feedback and able to modify and improve consistency. Average loudness in spontaneous conversation: 71 dB independently. Improving vocal loudness in [id number] remarks between structured tasks. Fluency of speech WNL during structured tasks. Speech becomes noticably halting in spontaneous conversation. Discussed with pt who exhibits good insight. Skilled education and feedback provided as well as recommendations for addressing this in treatment. Assessment Patient Response to Treatment Excellent Rehab Potential Excellent Impairments Identified Parkinson's Disease,Vocal Quality Additional Impairments Identified Mild bradykinesia impacting speech and voice onset Progress Towards Goals Good Progress Assessment of Improvement Pt continues to progress well. He reports increased difficulty maintaining awareness and effort toward loudness levels with increased cognitive load; however, he continues to meet loudness targets in these situations. Reviewed with Patient Goals,Progress Being Made,Home Exercise Program Patient/Caregiver Understanding Excellent Plan Amount of Therapy Recommended 1-2 Months Frequency of Treatment Four Times a Week Length of Session 60 Minutes Therapeutic Contents Client Education,Home Exercise Program,Intelligibility,Voice Training Provided Patient/Caregiver Instruction Home Exercise Program,Plan of Care,Questions/Concerns Therapy Recommendations Continue with Current Program Comment Advance speech targets to paragraphs.
--- NOTE | 2018-12-06 16:42 | ST.OPTN ---
Visit Care Team Role Provider Type Morena Burnham MD Primary Care Provider Non-Staff Address: [facility], [place], [address] Rigo Chavez MD Attending Provider Non-Staff Address: [address] [place], [address] HARDENING MACHINE OPERATOR Treatment Note HARDENING MACHINE OPERATOR Treatment Note Start: 08/02/18 18:41 Freq: Status: Active Protocol: Document 12/06/18 16:35 MICHELA (Rec: 12/06/18 16:42 MICHELA [email or web address]) Speech Pathology Treatment Note Session Time Visit Start Time 08:30 Visit Stop Time 09:30 Total Visit Minutes 60 Visit Information Visit Number 10/31 Plan of Care Dates 11/20/18 - 02/19/19 Insurance Information Medicare Setting Treatment Setting Outpatient Care Visit Type Note Type Re-Evaluation Next Note Type Next Note Type Treatment Note General Information General Information 67-yr-old male who was diagnosed with Parkinson's disease in May 2018. Previously, he had diagnosis of essential tremors since 2012. He has noticed decreased strength, increased hoarseness of voice, difficulty enunciating words which results in halting speech, and occasional comments from others of not speaking loudly enough. The pt has a hx of mild emphysema and asthma. He uses an inhaler PRN and has Albutan rescue inhaler he uses very rarely. He is a former smoker of 37 yrs, having quit in 2009 . PMHx also significant for mild emphysema and asthma. He uses an inhaler PRN, last used 5 days ago, and has Albutan rescue inhaler he uses very rarely. He is a former smoker of 37 yrs, having quit in 2009 . Subjective Observations/Patient Presentation The pt arrived on time. No new complaints. Chief Complaint(s) Voice Additional Areas of Concern Parkinson's symptoms Patient Knowledge/Awareness of HARDENING MACHINE OPERATOR Role Good in Treatment Objective Short Term Goals 1. The pt will sustain vowel phonation for 20 seconds with good vocal quality at an avg of 70 dB x3 trials to increase breath support and vocal stamina for speech and singing . 2. Pt will perform pitch glide exercises at avg of 70 dB or greater with min cues to increase pitch range and vocal stability at various pitches. GOAL MET 3. Pt will read Functional Phrases at avg of 72 dB or greater across 10 trials to increase speech intelligibility and promote carryover of vocal loudness into his functional environment. GOAL MET 4. Pt will read sentences with avg of 72 dB or greater with 90% accuracy and min cues to increase speech intelligibility. GOAL MET; Advance to paragraphs *NEW GOAL: Pt will read paragraphs with avg of 72 dB or greater with 90% accuracy and min cues to increase speech intelligibility. 5. Pt will maintain loudness levels between 68-70 dB in off -the-cuff remarks between structured tasks with min cues to increase speech intelligibility and promote carryover of adequate loudness in spontaneous conversation. Deck Cadet Goals 1. The pt will demonstrate independent and consistent compliance with HEP program to improve vocal quality and stamina in the presence of a progressive disease. 2. The pt will produce conversational speech WNL of loudness and vocal quality to maintain normal speech intelligibility levels with various conversation partners in various environments. 3. Pt will exhibit vocal quality WNL as measured by CAPE-V (clinician perceptual rating). 4. The pt will perceive no more than mild impact of voice on functional, physical and emotional scales WNL, as measured by VHI scores and pt report. Treatment Activities Pt completed LSVT-Loud exercises with the following results: MPT: 13.59 sec with increased loudness effort sec. Avg 80.5 dB, min prompts, with good vocal quality. Pitch Range: 99-510 Hz with good vocal quality, Avg loudness of highs 81dB, lows 78.5 dB. Pt benefited from visual biofeedback. Functional Phrases: Avg 76 dB independently. Paragraphs: 76 dB independently. Average loudness in spontaneous conversation: 72.9 dB independently. Improving vocal loudness in [id number] remarks between structured tasks. Fluency of speech WNL during structured tasks. Speech becomes noticably halting in spontaneous conversation. Assessment Patient Response to Treatment Excellent Rehab Potential Excellent Impairments Identified Parkinson's Disease,Vocal Quality Additional Impairments Identified Mild bradykinesia impacting speech and voice onset Progress Towards Goals Good Progress Assessment of Improvement Pt continues to progress well. Advanced reading tasks to paragraphs. Pt met and maintained target loudness across all tasks, demonstrating improving endurance and strength. Reviewed with Patient Goals,Progress Being Made,Home Exercise Program Patient/Caregiver Understanding Excellent Plan Amount of Therapy Recommended 1-2 Months Frequency of Treatment Four Times a Week Length of Session 60 Minutes Therapeutic Contents Client Education,Home Exercise Program,Intelligibility,Voice Training Provided Patient/Caregiver Instruction Home Exercise Program,Plan of Care,Questions/Concerns Therapy Recommendations Continue with Current Program
--- NOTE | 2018-12-07 10:18 | ST.OPTN ---
Visit Care Team Role Provider Type Morena Burnham MD Primary Care Provider Non-Staff Address: [facility], [place], [address] Rigo Chavez MD Attending Provider Non-Staff Address: [address] [place], [address] REFUSE DRIVER Treatment Note REFUSE DRIVER Treatment Note Start: 08/02/18 18:41 Freq: Status: Active Protocol: Document 12/07/18 09:48 MICHELA (Rec: 12/07/18 09:49 MICHELA [email or web address]) Speech Pathology Treatment Note Session Time Visit Start Time 08:30 Visit Stop Time 09:30 Total Visit Minutes 60 Visit Information Visit Number 11/30 Plan of Care Dates 11/20/18 - 02/19/19 Insurance Information Medicare Setting Treatment Setting Outpatient Care Visit Type Note Type Progress Note Next Note Type Next Note Type Treatment Note General Information General Information 67-yr-old male who was diagnosed with Parkinson's disease in May 2018. Previously, he had diagnosis of essential tremors since 2012. He has noticed decreased strength, increased hoarseness of voice, difficulty enunciating words which results in halting speech, and occasional comments from others of not speaking loudly enough. The pt has a hx of mild emphysema and asthma. He uses an inhaler PRN and has Albutan rescue inhaler he uses very rarely. He is a former smoker of 37 yrs, having quit in 2009 . PMHx also significant for mild emphysema and asthma. He uses an inhaler PRN, last used 5 days ago, and has Albutan rescue inhaler he uses very rarely. He is a former smoker of 37 yrs, having quit in 2009 . Subjective Observations/Patient Presentation The pt arrived on time. No new complaints. Chief Complaint(s) Voice Additional Areas of Concern Parkinson's symptoms Patient Knowledge/Awareness of REFUSE DRIVER Role Good in Treatment Objective Short Term Goals 1. The pt will sustain vowel phonation for 20 seconds with good vocal quality at an avg of 70 dB x3 trials to increase breath support and vocal stamina for speech and singing . 2. Pt will perform pitch glide exercises at avg of 70 dB or greater with min cues to increase pitch range and vocal stability at various pitches. GOAL MET 3. Pt will read Functional Phrases at avg of 72 dB or greater across 10 trials to increase speech intelligibility and promote carryover of vocal loudness into his functional environment. GOAL MET 4. Pt will read sentences with avg of 72 dB or greater with 90% accuracy and min cues to increase speech intelligibility. GOAL MET; Advance to paragraphs *NEW GOAL: Pt will read paragraphs with avg of 72 dB or greater with 90% accuracy and min cues to increase speech intelligibility. 5. Pt will maintain loudness levels between 68-70 dB in off -the-cuff remarks between structured tasks with min cues to increase speech intelligibility and promote carryover of adequate loudness in spontaneous conversation. Blow Machine Tender Starch Spraying Goals 1. The pt will demonstrate independent and consistent compliance with HEP program to improve vocal quality and stamina in the presence of a progressive disease. 2. The pt will produce conversational speech WNL of loudness and vocal quality to maintain normal speech intelligibility levels with various conversation partners in various environments. 3. Pt will exhibit vocal quality WNL as measured by CAPE-V (clinician perceptual rating). 4. The pt will perceive no more than mild impact of voice on functional, physical and emotional scales WNL, as measured by VHI scores and pt report. Treatment Activities Pt completed LSVT-Loud exercises with the following results: MPT: 12.66 sec sustained phonation with increased loudness effort. Avg 80.4 dB. In speech task, the pt read for 14.74 sec on single breath and clear articulation and voicing and with avg loudness of 74 dB. Pitch Range: 88-493 Hz with good vocal quality, Avg loudness of highs 82 dB, lows 78.8 dB. Pt benefited from visual biofeedback and was better able to reach lower pitches with increased loudness when provided a target note from a keyboard (G # below middle C). Functional Phrases: Avg 76.2 dB independently. Paragraphs: 74.4 dB independently. Prosodic Features and Facial Expression: Pt able to easily exaggerate these during reading task targeting these features and demonstrates WNL during spontaneous conversation. Average loudness in spontaneous conversation: 73.3 dB independently. Improving vocal loudness in [id number] remarks between structured tasks. Fluency of speech WNL during structured tasks. Speech becomes noticably halting in spontaneous conversation, but improving. Pt remarked that articulation feels easier since starting LSVT-Loud and that he benefits from reading aloud. Skilled feedback and education provided; pt was receptive. Assessment Patient Response to Treatment Excellent Rehab Potential Excellent Impairments Identified Fluency of Speech,Parkinson's Disease,Speech Intelligibility ,Vocal Quality Additional Impairments Identified Mild bradykinesia impacting speech and voice onset Progress Towards Goals Excellent Progress,Good Progress Assessment of Overall Progress Improving Assessment of Improvement Over the course of treatment, the pt has demonstrated excellent progress, specifically with consistent loudness levels meeting target goals across all tasks. He is increasing respiratory support and control necessary for speech and demonstrates slowly increasing durations of sustained phonation at target loudness levels. In addition to LSVT-Loud, the pt is exercising against resistance daily with an Expiratory Muscle Strength Supplier Manager, which likely contributes nicely to his progress. In a speech task in which the pt reads a sentence of increasing length, he achieved consistently clear speech (loudness and articulation) across a duration of 14.74 seconds of speech, which demonstrates significant progress with breath support and control, as well as improvements of vocal quality. The pt continues with moderately halting speech in spontaneous conversation which is not present in reading tasks. In conversation where there is a clear goal to achieve (e.g., giving instructions, buying a car), fluency of conversation is much improved compared to conversations with open-ended or loose topics. This indicates absence of motor control deficits (Apraxia of speech) and is more consistent with an expressive language processing impairment or possibly a psychological component. The pt exhibits excellent awareness of this, as well as concern. Fluency will be targeted more directly in the final week of LSVT- Loud training where conversation is the target. The pt continues to be highly motivated and compliant with HEP. Reviewed with Patient Goals,Progress Being Made,Home Exercise Program Patient/Caregiver Understanding Excellent Plan Comment 6 sessions to complete LSVT- Loud Frequency of Treatment Four Times a Week Length of Session 60 Minutes Therapeutic Contents Client Education,Home Exercise Program,Intelligibility,Voice Training Provided Patient/Caregiver Instruction Home Exercise Program,Plan of Care,Questions/Concerns Therapy Recommendations Continue with Current Program, Advance per Rehabilitation Protocol
--- NOTE | 2018-12-11 11:11 | ST.OPTN ---
Visit Care Team Role Provider Type Morena Burnham MD Primary Care Provider Non-Staff Address: [facility], [place], [address] Rigo Chavez MD Attending Provider Non-Staff Address: [address] [place], [address] CAGE UNLOADER Treatment Note CAGE UNLOADER Treatment Note Start: 08/02/18 18:41 Freq: Status: Active Protocol: Document 12/08/18 10:58 MICHELA (Rec: 12/11/18 11:11 MICHELA [email or web address]) Speech Pathology Treatment Note Session Time Visit Start Time 08:30 Visit Stop Time 09:30 Total Visit Minutes 60 Visit Information Visit Number 03/02 Plan of Care Dates 11/20/18 - 02/19/19 Insurance Information Medicare Setting Treatment Setting Outpatient Care Visit Type Note Type Treatment Note Next Note Type Next Note Type Treatment Note General Information General Information 67-yr-old male who was diagnosed with Parkinson's disease in May 2018. Previously, he had diagnosis of essential tremors since 2012. He has noticed decreased strength, increased hoarseness of voice, difficulty enunciating words which results in halting speech, and occasional comments from others of not speaking loudly enough. The pt has a hx of mild emphysema and asthma. He uses an inhaler PRN and has Albutan rescue inhaler he uses very rarely. He is a former smoker of 37 yrs, having quit in 2009 . PMHx also significant for mild emphysema and asthma. He uses an inhaler PRN, last used 5 days ago, and has Albutan rescue inhaler he uses very rarely. He is a former smoker of 37 yrs, having quit in 2009 . Subjective Observations/Patient Presentation The pt arrived on time. No new complaints. Chief Complaint(s) Voice Additional Areas of Concern Parkinson's symptoms Patient Knowledge/Awareness of CAGE UNLOADER Role Good in Treatment Objective Short Term Goals 1. The pt will sustain vowel phonation for 20 seconds with good vocal quality at an avg of 70 dB x3 trials to increase breath support and vocal stamina for speech and singing . 2. Pt will perform pitch glide exercises at avg of 70 dB or greater with min cues to increase pitch range and vocal stability at various pitches. GOAL MET 3. Pt will read Functional Phrases at avg of 72 dB or greater across 10 trials to increase speech intelligibility and promote carryover of vocal loudness into his functional environment. GOAL MET 4. Pt will read paragraphs with avg of 72 dB or greater with 90% accuracy and min cues to increase speech intelligibility. 5. Pt will maintain loudness levels between 68-70 dB in off -the-cuff remarks between structured tasks with min cues to increase speech intelligibility and promote carryover of adequate loudness in spontaneous conversation. Group Home Goals 1. The pt will demonstrate independent and consistent compliance with HEP program to improve vocal quality and stamina in the presence of a progressive disease. 2. The pt will produce conversational speech WNL of loudness and vocal quality to maintain normal speech intelligibility levels with various conversation partners in various environments. 3. Pt will exhibit vocal quality WNL as measured by CAPE-V (clinician perceptual rating). 4. The pt will perceive no more than mild impact of voice on functional, physical and emotional scales WNL, as measured by VHI scores and pt report. Treatment Activities Pt completed LSVT-Loud exercises with the following results: MPT: 16.5 sec sustained phonation with waning vocal quality after 14 sec. Avg 79.7 dB. Pitch Range: 88-524 Hz with good mostly vocal quality. Mild increased strain at highest pitches and increased breathiness at lowest pitches. Avg loudness of highs 8281 dB, lows 76.3dB. Pt benefited from visual biofeedback and was better able to reach lower pitches with increased loudness when provided a target note from a keyboard (G# below middle C). Functional Phrases: Avg 75 dB independently. Sentences: Pt read lengthy sentence for duration of 14.3 sec on single breath with avg loudness of 75 dB. Paragraphs: Avg 74.9 dB independently Prosodic Features and Facial Expression: Pt able to easily exaggerate these during reading task targeting these features and demonstrates WNL during spontaneous conversation. Average loudness in spontaneous conversation: 73.5 dB independently. Improving vocal loudness in [id number] remarks between structured tasks. Fluency of speech WNL during structured tasks. Speech becomes noticably halting in spontaneous conversation, but improving. Pt remarked that articulation feels easier since starting LSVT-Loud and that he benefits from reading aloud. Skilled feedback and education provided; pt was receptive. Assessment Patient Response to Treatment Excellent Rehab Potential Excellent Impairments Identified Fluency of Speech,Parkinson's Disease,Speech Intelligibility ,Vocal Quality Additional Impairments Identified Mild bradykinesia impacting speech and voice onset Progress Towards Goals Excellent Progress,Good Progress Assessment of Overall Progress Improving Assessment of Improvement Pt demonstrates excellent progress with breath support for speech, able to read text up to 14.3 sec on single breath. Sustained phonation with good vocal quality is also 14 sec in duration, with lesser quality phonation up to 16.5 sec. Pt's loudenss levels are very consistent, with loudness in structured reading tasks at high end of normal, with normal conversation levels being 65- 75 dB, and mid to high end with spontaneous conversation (73-76 db). Pt reports little if any effort required to meet these targets. Reviewed with Patient Goals,Progress Being Made,Home Exercise Program Patient/Caregiver Understanding Excellent Plan Comment 6 sessions to complete LSVT- Loud Frequency of Treatment Four Times a Week Length of Session 60 Minutes Therapeutic Contents Client Education,Home Exercise Program,Intelligibility,Voice Training Provided Patient/Caregiver Instruction Home Exercise Program,Plan of Care,Questions/Concerns Therapy Recommendations Continue with Current Program, Advance per Rehabilitation Protocol
--- NOTE | 2018-12-11 11:22 | ST.OPTN ---
Visit Care Team Role Provider Type Morena Burnham MD Primary Care Provider Non-Staff Address: [facility] [facility], [place], [address] Rigo Chavez MD Attending Provider Non-Staff Address: [address] [place], [address] HEBREW PROFESSOR Treatment Note HEBREW PROFESSOR Treatment Note Start: 08/02/18 18:41 Freq: Status: Active Protocol: Document 12/11/18 11:12 MICHELA (Rec: 12/11/18 11:22 MICHELA [email or web address]) Speech Pathology Treatment Note Session Time Visit Start Time 08:30 Visit Stop Time 09:30 Total Visit Minutes 60 Visit Information Visit Number 04/02 Plan of Care Dates 11/20/18 - 02/19/19 Insurance Information Medicare Setting Treatment Setting Outpatient Care Visit Type Note Type Treatment Note Next Note Type Next Note Type Treatment Note General Information General Information 67-yr-old male who was diagnosed with Parkinson's disease in May 2018. Previously, he had diagnosis of essential tremors since 2012. He has noticed decreased strength, increased hoarseness of voice, difficulty enunciating words which results in halting speech, and occasional comments from others of not speaking loudly enough. The pt has a hx of mild emphysema and asthma. He uses an inhaler PRN and has Albutan rescue inhaler he uses very rarely. He is a former smoker of 37 yrs, having quit in 2009 . PMHx also significant for mild emphysema and asthma. He uses an inhaler PRN, last used 5 days ago, and has Albutan rescue inhaler he uses very rarely. He is a former smoker of 37 yrs, having quit in 2009 . Subjective Observations/Patient Presentation The pt arrived on time. No new complaints. Reports compliance with home practice over weekend. Chief Complaint(s) Voice Additional Areas of Concern Parkinson's symptoms Patient Knowledge/Awareness of HEBREW PROFESSOR Role Good in Treatment Objective Short Term Goals 1. The pt will sustain vowel phonation for 20 seconds with good vocal quality at an avg of 70 dB x3 trials to increase breath support and vocal stamina for speech and singing . 2. Pt will perform pitch glide exercises at avg of 70 dB or greater with min cues to increase pitch range and vocal stability at various pitches. GOAL MET 3. Pt will read Functional Phrases at avg of 72 dB or greater across 10 trials to increase speech intelligibility and promote carryover of vocal loudness into his functional environment. GOAL MET 4. Pt will read paragraphs with avg of 72 dB or greater with 90% accuracy and min cues to increase speech intelligibility. 5. Pt will maintain loudness levels between 68-70 dB in off -the-cuff remarks between structured tasks with min cues to increase speech intelligibility and promote carryover of adequate loudness in spontaneous conversation. Senior Living Goals 1. The pt will demonstrate independent and consistent compliance with HEP program to improve vocal quality and stamina in the presence of a progressive disease. 2. The pt will produce conversational speech WNL of loudness and vocal quality to maintain normal speech intelligibility levels with various conversation partners in various environments. 3. Pt will exhibit vocal quality WNL as measured by CAPE-V (clinician perceptual rating). 4. The pt will perceive no more than mild impact of voice on functional, physical and emotional scales WNL, as measured by VHI scores and pt report. Treatment Activities Pt completed LSVT-Loud exercises with the following results: MPT: 15.52 sec sustained phonation with good vocal quality throughout. Avg 73 dB. Pitch Range: 74-489 Hz with good mostly vocal quality. Mild increased strain at highest pitches and increased breathiness at lowest pitches. Avg loudness of highs 82 dB , lows 77.6 dB. Pt continues to benefit from visual biofeedback and better able to reach lower pitches with increased loudness when provided a target note from a keyboard (G below middle C). Functional Phrases: Avg 76 dB independently and consistently throughout task. Paragraphs: Avg 76.7 dB independently across 3 tasks. Pt read lengthy article for duration of 8.75 minutes with avg loudness 77 dB. Decline in vocal quality was noted x2 over duration of task, both of which the pt self-corrected via laryngeal relaxation techniques. He reported feeling that his voice and articulators were tired at the end of the task but stated his respiratory muscles did not feel fatigued. He exhibited appropriate breath support for speech, articulation, and duration during task. Prosodic Features and Facial Expression: WNL in conversation, more exaggerated during structured tasks. No cueing required. Average loudness in spontaneous conversation: 71.3 dB independently. Improving vocal loudness in [id number] remarks between structured tasks. Fluency of speech WNL during structured tasks. Speech becomes noticably halting in spontaneous conversation, but improving. Pt remarked that articulation feels easier since starting LSVT-Loud and that he benefits from reading aloud. Skilled feedback and education provided; pt was receptive. Assessment Patient Response to Treatment Excellent Rehab Potential Excellent Impairments Identified Fluency of Speech,Parkinson's Disease,Speech Intelligibility ,Vocal Quality Additional Impairments Identified Mild bradykinesia impacting speech and voice onset Progress Towards Goals Excellent Progress,Good Progress Assessment of Overall Progress Improving Assessment of Improvement Pt demonstrates improving quality of voice for longer durations of sustained phonation and with increasing pitch range. Pt able to hold low G (below middle C) with good quality and increasing loudness, as compared to G# last week. Pt was able to read for extended duration (8.75 sec). Reduced vocal quality secondary to fatigue was noted by both HEBREW PROFESSOR and pt and was self-corrected by pt using trained techniques, demonstrating understanding of and ability to independently employ techniques. Pt continues to exhibit excellent insight into strengths and deficits. Reviewed with Patient Goals,Progress Being Made,Home Exercise Program Patient/Caregiver Understanding Excellent Plan Comment 6 sessions to complete LSVT- Loud Frequency of Treatment Four Times a Week Length of Session 60 Minutes Therapeutic Contents Client Education,Home Exercise Program,Intelligibility,Voice Training Provided Patient/Caregiver Instruction Home Exercise Program,Plan of Care,Questions/Concerns Therapy Recommendations Continue with Current Program, Advance per Rehabilitation Protocol
--- NOTE | 2018-12-14 09:55 | ST.OPTN ---
Visit Care Team Role Provider Type Morena Burnham MD Primary Care Provider Non-Staff Address: [facility] [facility], [place], [address] Rigo Chavez MD Attending Provider Non-Staff Address: [address] [place], [address] SOAKER SODA WORKER Treatment Note SOAKER SODA WORKER Treatment Note Start: 08/02/18 18:41 Freq: Status: Active Protocol: Document 12/12/18 09:46 MICHELA (Rec: 12/14/18 09:55 [email or web address] [email or web address]) Speech Pathology Treatment Note Session Time Visit Start Time 08:30 Visit Stop Time 09:30 Total Visit Minutes 60 Visit Information Visit Number 04/30 Plan of Care Dates 11/20/18 - 02/19/19 Insurance Information Medicare Setting Treatment Setting Outpatient Care Visit Type Note Type Treatment Note Next Note Type Next Note Type Treatment Note General Information General Information 67-yr-old male who was diagnosed with Parkinson's disease in May 2018. Previously, he had diagnosis of essential tremors since 2012. He has noticed decreased strength, increased hoarseness of voice, difficulty enunciating words which results in halting speech, and occasional comments from others of not speaking loudly enough. The pt has a hx of mild emphysema and asthma. He uses an inhaler PRN and has Albutan rescue inhaler he uses very rarely. He is a former smoker of 37 yrs, having quit in 2009 . PMHx also significant for mild emphysema and asthma. He uses an inhaler PRN, last used 5 days ago, and has Albutan rescue inhaler he uses very rarely. He is a former smoker of 37 yrs, having quit in 2009 . Subjective Observations/Patient Presentation The pt arrived on time. Reported voice was tired during his evening practice, likely from extensive use in morning practice. Feels better this morning. Pt was able to warm up voice before session and feels strong. Chief Complaint(s) Voice Additional Areas of Concern Parkinson's symptoms Patient Knowledge/Awareness of SOAKER SODA WORKER Role Good in Treatment Objective Short Term Goals 1. The pt will sustain vowel phonation for 20 seconds with good vocal quality at an avg of 70 dB x3 trials to increase breath support and vocal stamina for speech and singing . 2. Pt will perform pitch glide exercises at avg of 70 dB or greater with min cues to increase pitch range and vocal stability at various pitches. GOAL MET 3. Pt will read Functional Phrases at avg of 72 dB or greater across 10 trials to increase speech intelligibility and promote carryover of vocal loudness into his functional environment. GOAL MET 4. Pt will read paragraphs with avg of 72 dB or greater with 90% accuracy and min cues to increase speech intelligibility. 5. Pt will maintain loudness levels between 68-70 dB in off -the-cuff remarks between structured tasks with min cues to increase speech intelligibility and promote carryover of adequate loudness in spontaneous conversation. Cad Engineer Goals 1. The pt will demonstrate independent and consistent compliance with HEP program to improve vocal quality and stamina in the presence of a progressive disease. 2. The pt will produce conversational speech WNL of loudness and vocal quality to maintain normal speech intelligibility levels with various conversation partners in various environments. 3. Pt will exhibit vocal quality WNL as measured by CAPE-V (clinician perceptual rating). 4. The pt will perceive no more than mild impact of voice on functional, physical and emotional scales WNL, as measured by VHI scores and pt report. Treatment Activities Forward focus resonance exercises were performed to protect and warm up the pt's voice and avoid overuse or fatigue from previous day's use. Pt performed with min cues, good resonance, no complaints of fatigue. Pt completed LSVT-Loud exercises with the following results: MPT: 14 sec sustained phonation with good vocal quality throughout. Avg 80 dB. Pitch Range: 95-450 Hz with good mostly vocal quality. Mild increased strain at highest pitches and increased breathiness at lowest pitches. Avg loudness of highs 76.9 dB, lows 71.5 dB. Pt continues to benefit from visual biofeedback and better able to reach lower pitches with increased loudness when provided a target note from a keyboard (G below middle C). Functional Phrases: Avg 75 dB independently and consistently meeting target loudness throughout task. Conversation in coffee shop with ~65 dB ambient noise: Avg 75 dB independently across 25 min duration. 100% intelligible with no effort from listener. He exhibited appropriate breath support for speech, articulation, and endurance during task. Prosodic Features and Facial Expression: WNL in conversation, more exaggerated during structured tasks. No cueing required. Skilled feedback and education provided; pt was receptive. Assessment Patient Response to Treatment Excellent Rehab Potential Excellent Impairments Identified Fluency of Speech,Parkinson's Disease,Speech Intelligibility ,Vocal Quality Additional Impairments Identified Mild bradykinesia impacting speech and voice onset Progress Towards Goals Excellent Progress,Good Progress Assessment of Overall Progress Improving Assessment of Improvement Excellent progress being made. Pt exhibits increasingly consistent loudness levels across tasks independently. Excellent carryover to conversation in a variety of settings. Reviewed with Patient Goals,Progress Being Made,Home Exercise Program Patient/Caregiver Understanding Excellent Plan Comment 6 sessions to complete LSVT- Loud Frequency of Treatment Four Times a Week Length of Session 60 Minutes Therapeutic Contents Client Education,Home Exercise Program,Intelligibility,Voice Training Provided Patient/Caregiver Instruction Home Exercise Program,Plan of Care,Questions/Concerns Therapy Recommendations Continue with Current Program
--- NOTE | 2018-12-14 10:02 | ST.OPTN ---
Visit Care Team Role Provider Type Morena Burnham MD Primary Care Provider Non-Staff Address: [facility] [facility], [place], [address] Rigo Chavez MD Attending Provider Non-Staff Address: [address] [place], [address] SPECIALTIES OPERATOR Treatment Note SPECIALTIES OPERATOR Treatment Note Start: 08/02/18 18:41 Freq: Status: Active Protocol: Document 12/13/18 09:57 MICHELA (Rec: 12/14/18 10:02 MICHELA [email or web address]) Speech Pathology Treatment Note Session Time Visit Start Time 08:30 Visit Stop Time 09:30 Total Visit Minutes 60 Visit Information Visit Number 05/31 Plan of Care Dates 11/20/18 - 02/19/19 Insurance Information Medicare Setting Treatment Setting Outpatient Care Visit Type Note Type Treatment Note Next Note Type Next Note Type Treatment Note General Information General Information 67-yr-old male who was diagnosed with Parkinson's disease in May 2018. Previously, he had diagnosis of essential tremors since 2012. He has noticed decreased strength, increased hoarseness of voice, difficulty enunciating words which results in halting speech, and occasional comments from others of not speaking loudly enough. The pt has a hx of mild emphysema and asthma. He uses an inhaler PRN and has Albutan rescue inhaler he uses very rarely. He is a former smoker of 37 yrs, having quit in 2009 . PMHx also significant for mild emphysema and asthma. He uses an inhaler PRN, last used 5 days ago, and has Albutan rescue inhaler he uses very rarely. He is a former smoker of 37 yrs, having quit in 2009 . Subjective Observations/Patient Presentation The pt arrived on time. Reported voice feels strong, no fatigue or sense of overuse . No new complaints. Chief Complaint(s) Voice Additional Areas of Concern Parkinson's symptoms Patient Knowledge/Awareness of SPECIALTIES OPERATOR Role Good in Treatment Objective Short Term Goals 1. The pt will sustain vowel phonation for 20 seconds with good vocal quality at an avg of 70 dB x3 trials to increase breath support and vocal stamina for speech and singing . 2. Pt will perform pitch glide exercises at avg of 70 dB or greater with min cues to increase pitch range and vocal stability at various pitches. GOAL MET 3. Pt will read Functional Phrases at avg of 72 dB or greater across 10 trials to increase speech intelligibility and promote carryover of vocal loudness into his functional environment. GOAL MET 4. Pt will read paragraphs with avg of 72 dB or greater with 90% accuracy and min cues to increase speech intelligibility. 5. Pt will maintain loudness levels between 68-70 dB in off -the-cuff remarks between structured tasks with min cues to increase speech intelligibility and promote carryover of adequate loudness in spontaneous conversation. Public Health Service Officer Goals 1. The pt will demonstrate independent and consistent compliance with HEP program to improve vocal quality and stamina in the presence of a progressive disease. 2. The pt will produce conversational speech WNL of loudness and vocal quality to maintain normal speech intelligibility levels with various conversation partners in various environments. 3. Pt will exhibit vocal quality WNL as measured by CAPE-V (clinician perceptual rating). 4. The pt will perceive no more than mild impact of voice on functional, physical and emotional scales WNL, as measured by VHI scores and pt report. Treatment Activities Forward focus resonance exercises were performed to protect and warm up the pt's voice. Pt performed with min cues, good resonance, no complaints of fatigue. Pt completed LSVT-Loud exercises with the following results: MPT: 15.5 sec sustained phonation with good vocal quality throughout. Avg 79.1 dB. Pitch Range: 81-455 Hz with good mostly vocal quality. Mild increased strain at highest pitches and increased breathiness at lowest pitches. Avg loudness of highs 79.1 dB, lows 75.2 dB. Pt continues to benefit from visual biofeedback and better able to reach lower pitches with increased loudness when provided a target note from a keyboard (G & F# below middle C). Functional Phrases: Avg 75 dB independently and consistently meeting target loudness throughout task. Conversation in quiet hospital environments (~60 dB) and cafeteria with >65 dB, varying ambient noise: Avg 76 dB independently across 30 min duration. 100% intelligible with no effort from listener. He exhibited appropriate breath support for speech, articulation, and endurance during task. Prosodic Features and Facial Expression: WNL in conversation, more exaggerated during structured tasks. No cueing required. Skilled feedback and education provided; pt was receptive. Assessment Patient Response to Treatment Excellent Rehab Potential Excellent Impairments Identified Fluency of Speech,Parkinson's Disease,Speech Intelligibility ,Vocal Quality Additional Impairments Identified Mild bradykinesia impacting speech and voice onset Progress Towards Goals Excellent Progress,Good Progress Assessment of Overall Progress Improving Assessment of Improvement Pt continues making excellent progress and exhibits consistent loudness levels across tasks independently. Excellent carryover to conversation in a variety of settings. Reviewed with Patient Goals,Progress Being Made,Home Exercise Program Patient/Caregiver Understanding Excellent Plan Comment 6 sessions to complete LSVT- Loud Frequency of Treatment Four Times a Week Length of Session 60 Minutes Therapeutic Contents Client Education,Home Exercise Program,Intelligibility,Voice Training Provided Patient/Caregiver Instruction Home Exercise Program,Plan of Care,Questions/Concerns Therapy Recommendations Continue with Current Program
--- NOTE | 2018-12-14 10:05 | ST.OPTN ---
Visit Care Team Role Provider Type Morena Burnham MD Primary Care Provider Non-Staff Address: [facility] [facility], [place], [address] Rigo Chavez MD Attending Provider Non-Staff Address: [address] [place], [address] MULTIPLE PRESSURE RIVETER OPERATOR Treatment Note MULTIPLE PRESSURE RIVETER OPERATOR Treatment Note Start: 08/02/18 18:41 Freq: Status: Active Protocol: Document 12/14/18 10:02 MICHELA (Rec: 12/14/18 10:05 MICHELA [email or web address]) Speech Pathology Treatment Note Session Time Visit Start Time 08:30 Visit Stop Time 09:30 Total Visit Minutes 60 Visit Information Visit Number 06/30 Plan of Care Dates 11/20/18 - 02/19/19 Insurance Information Medicare Setting Treatment Setting Outpatient Care Visit Type Note Type Treatment Note Next Note Type Next Note Type Treatment Note General Information General Information 67-yr-old male who was diagnosed with Parkinson's disease in May 2018. Previously, he had diagnosis of essential tremors since 2012. He has noticed decreased strength, increased hoarseness of voice, difficulty enunciating words which results in halting speech, and occasional comments from others of not speaking loudly enough. The pt has a hx of mild emphysema and asthma. He uses an inhaler PRN and has Albutan rescue inhaler he uses very rarely. He is a former smoker of 37 yrs, having quit in 2009 . PMHx also significant for mild emphysema and asthma. He uses an inhaler PRN, last used 5 days ago, and has Albutan rescue inhaler he uses very rarely. He is a former smoker of 37 yrs, having quit in 2009 . Subjective Observations/Patient Presentation The pt arrived on time. Reported voice feels strong, no fatigue or sense of overuse . No new complaints. Chief Complaint(s) Voice Additional Areas of Concern Parkinson's symptoms Patient Knowledge/Awareness of MULTIPLE PRESSURE RIVETER OPERATOR Role Good in Treatment Objective Short Term Goals 1. The pt will sustain vowel phonation for 20 seconds with good vocal quality at an avg of 70 dB x3 trials to increase breath support and vocal stamina for speech and singing . 2. Pt will perform pitch glide exercises at avg of 70 dB or greater with min cues to increase pitch range and vocal stability at various pitches. GOAL MET 3. Pt will read Functional Phrases at avg of 72 dB or greater across 10 trials to increase speech intelligibility and promote carryover of vocal loudness into his functional environment. GOAL MET 4. Pt will read paragraphs with avg of 72 dB or greater with 90% accuracy and min cues to increase speech intelligibility. 5. Pt will maintain loudness levels between 68-70 dB in off -the-cuff remarks between structured tasks with min cues to increase speech intelligibility and promote carryover of adequate loudness in spontaneous conversation. Ruby On Rails Engineer Goals 1. The pt will demonstrate independent and consistent compliance with HEP program to improve vocal quality and stamina in the presence of a progressive disease. 2. The pt will produce conversational speech WNL of loudness and vocal quality to maintain normal speech intelligibility levels with various conversation partners in various environments. 3. Pt will exhibit vocal quality WNL as measured by CAPE-V (clinician perceptual rating). 4. The pt will perceive no more than mild impact of voice on functional, physical and emotional scales WNL, as measured by VHI scores and pt report. Treatment Activities Pt completed LSVT-Loud exercises with the following results: MPT: 16.25 sec sustained phonation with good vocal quality throughout. Pt achieved >15 sec x4 trials. Avg 76 dB. Pitch Range: 106-469 Hz with good mostly vocal quality. Mild increased strain at highest pitches and increased breathiness at lowest pitches. Avg loudness of highs 80.4 dB, lows 76 dB. Pt continues to benefit from visual biofeedback and better able to reach lower pitches with increased loudness when provided a target note from a keyboard (G & F# below middle C). Functional Phrases: Avg 75 dB independently and consistently meeting target loudness throughout task. Conversation in quiet hospital environments (~60 dB) and cafeteria with >65 dB, varying ambient noise: Avg 76 dB independently across 30 min duration. 100% intelligible with no effort from listener. He exhibited appropriate breath support for speech, articulation, and endurance during task. Prosodic Features and Facial Expression: WNL in conversation, more exaggerated during structured tasks. No cueing required. Skilled feedback and education provided; pt was receptive. Assessment Patient Response to Treatment Excellent Rehab Potential Excellent Impairments Identified Fluency of Speech,Parkinson's Disease,Speech Intelligibility ,Vocal Quality Additional Impairments Identified Mild bradykinesia impacting speech and voice onset Progress Towards Goals Excellent Progress,Good Progress Assessment of Overall Progress Improving Assessment of Improvement Pt continues making excellent progress and exhibits consistent loudness levels across tasks independently. Excellent carryover to conversation in a variety of settings. Reviewed with Patient Goals,Progress Being Made,Home Exercise Program Patient/Caregiver Understanding Excellent Plan Comment 6 sessions to complete LSVT- Loud Frequency of Treatment Four Times a Week Length of Session 60 Minutes Therapeutic Contents Client Education,Home Exercise Program,Intelligibility,Voice Training Provided Patient/Caregiver Instruction Home Exercise Program,Plan of Care,Questions/Concerns Therapy Recommendations Continue with Current Program
--- NOTE | 2018-12-15 10:02 | ST.OPDS ---
Visit Care Team Role Provider Type Morena Burnham MD Primary Care Provider Non-Staff Address: [facility] [facility], [place], [address] Rigo Chavez MD Attending Provider Non-Staff Address: [address] [place], [address] [employer] Treatment Note [employer] Treatment Note Start: 08/02/18 18:41 Freq: Status: Active Protocol: Document 12/15/18 09:38 MICHELA (Rec: 12/15/18 10:02 MICHELA [id number]) Speech Pathology Treatment Note Session Time Visit Start Time 08:30 Visit Stop Time 09:30 Total Visit Minutes 60 Visit Information Visit Number 07/31 Plan of Care Dates 11/20/18 - 02/19/19 Insurance Information Medicare Setting Treatment Setting Outpatient Care Visit Type Note Type Discharge Summary General Information General Information 67-yr-old male who was diagnosed with Parkinson's disease in May 2018. Previously, he had diagnosis of essential tremors since 2012. He has noticed decreased strength, increased hoarseness of voice, difficulty enunciating words which results in halting speech, and occasional comments from others of not speaking loudly enough. The pt has a hx of mild emphysema and asthma. He uses an inhaler PRN and has Albutan rescue inhaler he uses very rarely. He is a former smoker of 37 yrs, having quit in 2009 . PMHx also significant for mild emphysema and asthma. He uses an inhaler PRN, last used 5 days ago, and has Albutan rescue inhaler he uses very rarely. He is a former smoker of 37 yrs, having quit in 2009 . Subjective Observations/Patient Presentation The pt arrived on time. No new complaints. Reported feeling much improvement in voice timber and strength, pitch range, vocal inflection, as well as improvements in articulation and swallow function. He reported at SOC swallowing liquid and even saliva required effort and he experienced frequent coughing. Now he states swallow is again a reflex without effort and coughing has dissipated. He expressed gratitude for the treatment, particularly as it has allowed him to resume his hobby of performance singing. Chief Complaint(s) Voice Additional Areas of Concern Parkinson's symptoms Patient Knowledge/Awareness of [employer] Role Good in Treatment Objective Short Term Goals 1. The pt will sustain vowel phonation for 20 seconds with good vocal quality at an avg of 70 dB x3 trials to increase breath support and vocal stamina for speech and singing . GOAL NOT MET. MPT = 18.5 sec 2. Pt will perform pitch glide exercises at avg of 70 dB or greater with min cues to increase pitch range and vocal stability at various pitches. GOAL MET 3. Pt will read Functional Phrases at avg of 72 dB or greater across 10 trials to increase speech intelligibility and promote carryover of vocal loudness into his functional environment. GOAL MET 4. Pt will read paragraphs with avg of 72 dB or greater with 90% accuracy and min cues to increase speech intelligibility. GOAL MET 5. Pt will maintain loudness levels between 68-70 dB in off -the-cuff remarks between structured tasks with min cues to increase speech intelligibility and promote carryover of adequate loudness in spontaneous conversation. GOAL MET and EXCEEDED Weigher Packing Goals 1. The pt will demonstrate independent and consistent compliance with HEP program to improve vocal quality and stamina in the presence of a progressive disease.GOAL MET 2. The pt will produce conversational speech WNL of loudness and vocal quality to maintain normal speech intelligibility levels with various conversation partners in various environments. GOAL MET 3. Pt will exhibit vocal quality WNL as measured by CAPE-V (clinician perceptual rating). GOAL MET 4. The pt will perceive no more than mild impact of voice on functional, physical and emotional scales WNL, as measured by VHI scores and pt report. GOAL MET Treatment Activities Pt completed LSVT-Loud exercises with the following results: MPT: 18.5 sec sustained phonation with good vocal quality throughout. Pt achieved >16 sec x5 trials. Avg 79 dB. Pitch Range: 96-479 Hz with good mostly vocal quality. Mild increased strain at highest pitches and increased breathiness at lowest pitches. Avg loudness of highs 793.6 dB, lows 79 dB. Pt continues to benefit from visual biofeedback and better able to reach lower pitches with increased loudness when provided a target note from a keyboard (G & F# below middle C). Functional Phrases: Avg 74 dB independently and consistently meeting target loudness throughout task. Conversation in quiet treatment room: 72 dB (WNL) Prosodic Features and Facial Expression: WNL in conversation, more exaggerated during structured tasks. No cueing required. Skilled feedback and education provided; pt was receptive. Pt completed VHI with Total Score 5/120 (WNL); Physical Subscale 2/40 (WNL); Functional Subscale 2/40 (WNL) ; and Emotional Subscale 1/40 (WNL). CAPE-V: Overall Impairment 2% (WNL); Breathiness 2% (WNL); all other measures 0% impaired . Pt exhibits prosodic features and facial expression WFL. Education provided to pt via recordings of his voice at SOC and EOC. Both pt and [employer] perceived voice to be much richer, stronger, louder and improvement in prosodic features at EOC. Education was also provided RE potential effects of Parkinson's disease on swallow and articulation, and benefit of continued LSVT- Loud HEP to maintain current function. All questions were answered. Assessment Patient Response to Treatment Excellent Rehab Potential Excellent Impairments Identified Fluency of Speech,Parkinson's Disease,Speech Intelligibility ,Vocal Quality Additional Impairments Identified Mild bradykinesia impacting speech and voice onset Progress Towards Goals Excellent Progress,Good Progress Assessment of Overall Progress Improving Assessment of Improvement Over the course of treatment, the pt has made excellent progress, meeting and/or exceeding all goals with exception of sustained phonation (goal = 20 sec; 18.5 sec attained). While participating in LSVT-Loud, the pt has also been doing expiratory muscle strength training, which likely has been beneficial as well. Great improvement has been seen in the quality of the pt's voice since SOC, as well as speech intelligibility in a variety of settings in which the pt has appropriately adapted vocal loudness levels to meet environmental factors and conversation partners' needs. He has exhibited excellent awareness to voice and communication features and demonstrated consistent improvement and performance throughout treatment. As a result, the pt reports ability to participate again in singing, which is an important hobby to him. He also reports improvement in speech articulation, which has been observed by this [employer], and in swallow function. The pt has been a pleasure to work with. Reviewed with Patient Goals,Progress Being Made,Home Exercise Program Patient/Caregiver Understanding Excellent Plan Therapeutic Contents Client Education,Home Exercise Program,Intelligibility,Voice Training Provided Patient/Caregiver Instruction Home Exercise Program,Plan of Care,Questions/Concerns Therapy Recommendations Discharge to Home Exercise Program,Discharge from Speech Therapy Comment Goals met. LSVT-Loud completed .
== END 2018-12-20 15:35 | disposition home or self-care (01) ==
LOC: SP 08:30
PROVIDERS: PCP Internal Medicine; Visit Provider Psychiatry & Neurology Neurology
DX: G20 Parkinson's disease (principal); R49.0 Dysphonia
CPT/HCPCS: 92507; 92520; 92524